=== PATIENT | male | born 1950 | race Caucasian/White ===

== ENCOUNTER 2018-11-07 17:30 | Inpatient (IN) ==
[2018-11-07 19:02] LABS: BASO# 0.03 X1000 (0.0-0.2); BASO% 0.2 % (0.0-0.8); EOS# 0.33 X1000 (0.0-0.7); EOS% 2.7 % (0.0-10.0); HEMATOCRIT 21.5 % (42.0-52.0); HEMOGLOBIN 7.2 g/dL (14.0-18.0); IMM GRAN# 0.04 X1000 (0.0-0.04); IMM GRAN% 0.3 % (0.0-0.5); LYMPH# 0.61 X1000 (1.2-3.4); MCH 28.1 PG (27-31); MCHC 33.5 g/dL (33-37); MONO# 1.31 X1000 (0.11-0.59); MONO% 10.8 % (1.7-9.3); MPV 9.3 FL (7.4-10.4); NEUT# 9.81 X1000 (1.4-6.5); RBC 2.56 XMIL (4.7-6.1); RDW 16.3 % (11.5-14.5); WBC 12.13 X1000 (4.8-10.8)
[2018-11-07 19:08] LABS: PLT 1013 X1000 (130-400)
[2018-11-07 19:20] LABS: ALB/GLOB RATIO 0.8; ALBUMIN 3.3 g/dL (3.5-5.0); CALCIUM 8.7 mg/dL (8.8-10.2); POTASSIUM 5.5 mmol/L (3.5-5.1); TOTAL BILIRUBIN 0.31 mg/dL (0.20-1.00); TOTAL PROTEIN 7.2 g/dL (6.3-8.3)
[2018-11-07 19:24] LABS: EOS 3 % (1-10); LYMPHS 11 % (21-51); MONO 1 % (1-9); SEGS 84 % (42-75)
--- NOTE | 2018-11-07 19:25 | Diag Imaging Result Doc PS360 ---
CHEST-2 VIEWS - 11/07/2018 INDICATION: weakness COMPARISON: None FINDINGS: There are sternotomy wires. There is mild cardiomegaly. Pulmonary vascularity is top normal. No infiltrates or edema. No pneumothorax or pleural effusion. IMPRESSION: Mild cardiomegaly. Electronically signed by Nacho Calvin 11/07/2018 7:23 PM
[2018-11-07 19:26] LABS: ANISOCYTOSIS 2+
[2018-11-07] MEDS ORDERED: KAYEXALATE PO ONE (20:46)
[2018-11-07] MEDS ORDERED: NS 1,000 ML IV ONE (20:47)
[2018-11-07 21:25] LABS: MPV 9.5 FL (7.4-10.4)
--- NOTE | 2018-11-07 22:11 | Diag Imaging Result Doc PS360 ---
KNEE 3 VIEWS RIGHT - 11/07/2018 INDICATION: right knee pain TECHNIQUE: Three views COMPARISON: 10/23/2018 FINDINGS: There is soft tissue swelling in the region of the quadriceps tendon. Stable total knee replacement. No hardware fracture or loosening. IMPRESSION: Indeterminate area of soft tissue swelling in the region of the quadriceps tendon. Electronically signed by Nacho Calvin 11/07/2018 10:09 PM
--- NOTE | 2018-11-07 22:20 | PROVIDER DOCUMENTATION ---
This chart was entered by Edmund Corral Scribe, acting as scribe for Pancho Pierre MD. HPI-Musculoskeletal Pain/Inj - GENERAL Chief Complaint: Abnormal Lab[s] Stated Complaint: ANEMIA Time Seen by Provider: 11/07/18 20:33 Source: patient - HX OF PRESENT ILLNESS-MUSKULOSKELTAL Nature of Presenting Problem: Pt is a 68 y/o M presents to the ED with right knee pain after a complete knee replacement 2 weeks ago. Pt says he was seen yesterday by his surgeon and began antibiotics for a possible post op infection. Pt reports he got a call today at 4 pm from his labs that were abnormal and told to come to the ED. Quality of Pain: reports: aching Severity in ED: moderate, severe Onset/Duration: gradual, 2 days ago Timing: still present Modifying Factors: improves with: nothing Any recent injury?: Yes (Knee replacement) Similar Symptoms Previously?: No Recently seen or treated by another doctor?: No Review of Systems - Adult - REVIEW OF SYSTEMS - ADULT Constitutional: denies: chills, fever Eyes: reports: no symptoms reported Ears, Nose, Mouth & Throat: reports: no symptoms reported Cardiovascular: reports: no symptoms reported Respiratory: denies: cough, shortness of breath, wheezing Gastrointestinal: denies: nausea, vomiting Genitourinary: reports: no symptoms reported Musculoskeletal: reports: joint pain. denies: back pain, neck pain Integumentary: reports: no symptoms reported Neurological: denies: dizziness/vertigo, headache/migraines Psychiatric: reports: no symptoms reported Endocrine: reports: no symptoms reported Hematologic/Lymphatic: reports: no symptoms reported Allergic/Immunologic: reports: no symptoms reported All Other Systems: Reviewed and Negative Past History - Adult - PAST MEDICAL HISTORY-ADULT Review of Records: reports: Old Records Reviewed, Nursing Assessment Review, Medications Reviewed - SOCIAL HISTORY Smoking: cigarettes, less than 1 pack/day Living Situation: family Physical Exam-Injury Related - Physical Exam-Injury Related Initial Vital Signs Reviewed: Yes General Appearance: appears well, alert, no apparent distress Eyes: PERRL/EOMI, pink conjunctivae Head, Ears, Nose, Mouth & Throat: normal ENT inspection, pharynx normal. negative: moist mucous membranes (dry) Neck: non-tender, full range of motion, supple, normal inspection Respiratory: lungs clear, normal breath sounds, no pleuratic chest pain, no respiratory distress, no accessory muscle use Cardiovascular: normal peripheral pulses, regular rate, rhythm Abdominal Exam: normal bowel sounds, non tender, soft Back Exam: normal inspection, no CVA tenderness Extremity: erythema (mild erythema over right knee inscision with some discharge. ROM is pain and pt c/o of increased pain and stiffnes), swelling, tenderness. negative: normal range of motion (right knee) Integumentary: normal color, warm/dry Neurologic: grossly normal, no motor/sensory deficits Psych/Mental Status: normal mood/affect, normal thought content, normal thought process, oriented x 3 Progress - PLAN OF CARE/RESULTS Progress/Plan/Lab Results: Vital Signs - 8 hr 11/07/18 18:10 Temperature 98.5 F Pulse Rate 70 Respiratory Rate 24 Blood Pressure 105/35 O2 Sat by Pulse Oximetry 100 Laboratory Results - last 24 hr 11/07/18 11/07/18 11/07/18 18:25 18:25 18:25 WBC 12.13 H RBC 2.56 L Hgb 7.2 L Hct 21.5 L MCV 84.0 MCH 28.1 MCHC 33.5 RDW Std Deviation 16.3 H Plt Count 1013 H* MPV 9.3 Immature Gran % (Auto) 0.3 Neut % (Auto) 81.0 H Lymph % (Auto) 5.0 L Becker % (Auto) 10.8 H Eos % (Auto) 2.7 Baso % (Auto) 0.2 Immature Gran # (Auto) 0.04 Neut # (Auto) 9.81 H Lymph # (Auto) 0.61 L Becker # (Auto) 1.31 H Eos # (Auto) 0.33 Baso # (Auto) 0.03 Segmented Neutrophils 84 H Lymphocytes 11 L Monocytes 1 Eosinophils 3 Pathologist Review Cancelled Atypical Lymphocytes 1.0 Anisocytosis 2+ Sodium 132 L Potassium 5.5 H Chloride 97 L Carbon Dioxide 20 L Anion Gap 15 BUN 59 H Creatinine 2.0 H Estimated GFR/1.73 m2 33 BUN/Creatinine Ratio 30 Glucose 118 H Calculated Osmolality 282 Calcium 8.7 L Total Bilirubin 0.31 AST 40 H ALT 37 Alkaline Phosphatase 161 H Total Protein 7.2 Albumin 3.3 L Globulin 3.9 Albumin/Globulin Ratio 0.8 Blood Type A POSITIVE Antibody Screen NEGATIVE 11/07/18 20:34 WBC RBC Hgb Hct MCV MCH MCHC RDW Std Deviation Plt Count 1058 H* MPV 9.5 Immature Gran % (Auto) Neut % (Auto) Lymph % (Auto) Becker % (Auto) Eos % (Auto) Baso % (Auto) Immature Gran # (Auto) Neut # (Auto) Lymph # (Auto) Becker # (Auto) Eos # (Auto) Baso # (Auto) Segmented Neutrophils Lymphocytes Monocytes Eosinophils Pathologist Review Atypical Lymphocytes Anisocytosis Sodium Potassium Chloride Carbon Dioxide Anion Gap BUN Creatinine Estimated GFR/1.73 m2 BUN/Creatinine Ratio Glucose Calculated Osmolality Calcium Total Bilirubin AST ALT Alkaline Phosphatase Total Protein Albumin Globulin Albumin/Globulin Ratio Blood Type Antibody Screen Orders Category Date Time Status CHEST-2 VIEWS [RAD] Stat Exams 11/07/18 18:23 Completed KNEE 3 VIEWS RIGHT [RAD] Stat Exams 11/07/18 21:18 Completed CBC WITH ELECTRONIC DIFF [HEME] Stat Lab 11/07/18 18:25 Completed COMPREHENSIVE METABOLIC PANEL [CHEM] Stat Lab 11/07/18 18:25 Completed PLATELET COUNT [HEME] Stat Lab 11/07/18 20:34 Completed TYPE & SCREEN [BBK] Stat Lab 11/07/18 18:25 Results WOUND CULTURE INC GRAM STAIN [RM] Stat Lab 11/07/18 20:48 Uncollected 0.9% Sodium Chloride Inj [Ns] 1,000 ml Med 11/07/18 20:47 Discontinued IV 999 mls/hr Sodium Polystyrene [Kayexalate] Med 11/07/18 20:46 Discontinued 15 gm PO NOW ONE EKG [EKG] Stat Ther 11/07/18 22:17 Ordered Result Diagrams: 11/07/18 20:34 11/07/18 18:25 - XRAY 1 XRAY Study: Chest Impression: Abnormal (INDICATION: weakness COMPARISON: None FINDINGS: There are sternotomy wires. There is mild cardiomegaly. Pulmonary vascularity is top normal. No infiltrates or edema. No pneumothorax or pleural effusion. IMPRESSION: Mild cardiomegaly. Electronically signed by Nacho Calvin 2018 7:23 PM), See EMR Report 2 XRAY: Right XRAY Study: Knee Impression: Abnormal (INDICATION: right knee pain TECHNIQUE: Three views COMPARISON: 10/23/2018 FINDINGS: There is soft tissue swelling in the region of the quadriceps tendon. Stable total knee replacement. No hardware fracture or loosening. IMPRESSION: Indeterminate area of soft tissue swelling in the region of the quadriceps tendon. Electronically signed by Nacho Calvin 10:09 PM), See EMR Report - CONSULTS/PCP/HOSPITALIST Notification #1 *Consult/PCP/Hospitalist*: Ortho- Dr Hernandez Time Discussed: 22:12 Reason/Comments: Review HPI and plan of care Consult Disposition: Admit (to hospitalist and NPO after midnight for possible clean out of knee) #2 Consult: Hospitalist- Dr Bowman Time Discussed: 22:16 Reason/Comments: Admission Consult Disposition: Will see in ED, Admit Departure - Departure Date of Disposition Decision: 11/07/18 Time of Disposition Decision: 22:14 DIAGNOSIS: Anemia, Hyperkalemia, Thrombocytosis, Infection of knee Disposition: ADMITTED INPATIENT 09 Certified Medical Emergency: Emergent Condition: Stable Referrals and Follow-Ups: Eloina Cortez MD [Primary Care Provider] - - Critical Care Note This patient required my direct & personal management of CC.: No Attestation - Physician/ BLAYNE Attestation Patient care was provided by Advanced Practice Provider:: No The physician spent face to face time with patient:: Yes Advanced Practice Provider documentation review:: Supervising physician onsite and consulted in the evaluation and care of this patient. The physician did have a face to face encounter with the patient. This chart was documented by the indicated scribe, (Edmund Corral Scribe) and accurately reflects the services I performed and decisions made by me, Pancho Pierre MD, as attested by the provider's signature.
[2018-11-07] MEDS ORDERED: ZOFRAN IV ONE (22:24)
[2018-11-07] MEDS ORDERED: DILAUDID IV ONE (22:24)
[2018-11-07] MEDS ORDERED: CUBICIN 500 MG in NS 100 ML IV ONE (23:00)
[2018-11-07] MEDS ORDERED: ZOFRAN IV PRN (23:20)
[2018-11-07] MEDS ORDERED: TYLENOL PO PRN (23:20)
[2018-11-07] MEDS: NS 1,000 ML IV SCH (23:30)
[2018-11-07] MEDS ORDERED: ROCEPHIN 1 GM in NS 50 ML IV SCH (23:30)
[2018-11-07 23:50] LABS: CHOLESTEROL 139 mg/dL (0-200); HDL 25 mg/dL (35-55); IRON SATURATION 6 %; LDL 92 mg/dL; TIBC 222 ug/dL; TOTAL IRON 14 ug/dL (53-167); TRIGLYCERIDES 110 mg/dL (39-160); UNBOUND IRON 208 ug/dL (112-346); VLDL 22 mg/dL
[2018-11-08 00:20] LABS: FERRITIN 289 ng/mL (30-400)
[2018-11-08] MEDS: NORCO-7.5 PO PRN ×3 (00:20→16:55)
[2018-11-08] MEDS ORDERED: BENADRYL IV ONE (00:23)
[2018-11-08] MEDS: FOLIC ACID 1 MG in NS 50 ML IV SCH (00:45)
[2018-11-08] MEDS ORDERED: BENADRYL IV PRN (01:10)
--- NOTE | 2018-11-08 02:19 | HISTORY AND PHYSICAL ---
CHIEF COMPLAINT: Abnormal labs, sent by surgeon. HISTORY OF PRESENT ILLNESS: This is a 68-year-old male who had right knee pain after having a complete right knee replacement around 2 weeks ago. He reportedly saw the surgeon yesterday and was started on antibiotics for possible postoperative infection. I am unsure what antibiotic that he was started on. The patient and his were unable to tell me. He reports that he got a call today around 4 p.m. related to his labs being abnormal and was told to come to the emergency room. He did state that he has had gradually increasing knee pain with a drainage over the last week, worse the last 2 days. Nothing makes it better and movement makes it worse. He rated it around 7/10. It is causing him difficulty ambulating. He states that he has been working with Home Health with range of motion. There was some soft tissue swelling noted on the x-ray. Patient has a past medical history of coronary artery disease, hypertension, hyperlipidemia. However, he is allergic to statins. They caused him to have hepatitis so he is unable to treat that at this time. Also has GERD and coronary artery disease status post CABG. The patient was noted to be anemic with elevated platelets and mildly elevated WBC. Was also noted to be in acute renal failure with elevated potassium. He will be admitted to the medical floor for further evaluation and treatment. PAST MEDICAL HISTORY: See HPI. 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 He did receive chemotherapy and radiation treatment for the cancer. PREVIOUS SURGICAL HISTORY: 1. Right knee done by Dr. Cortez 2 weeks ago. 2. CABG. 3. Removal of squamous cell carcinoma. SOCIAL HISTORY: Lives with his . Works in the [employer] department at a vehicle [employer]. Smokes less than a pack a day. Smoking cessation was gone over with the patient. He denies wanting to quit at this time. Denies alcohol or illicit drug use or abuse. FAMILY HISTORY: The patient is adopted but states that his maternal history included coronary artery disease. ALLERGIES: Statin causing hepatitis. HOME MEDICATIONS: A list of home medications was not reconciled. The patient and his were unable to tell me what home medications he took. An order has been placed for Nursing to reconcile home medications. These will be restarted when appropriate. REVIEW OF SYSTEMS: Fourteen point review of systems conducted with the patient. Pertinent positives listed above in the HPI. He also complained of general fatigue and a warmth to his right knee as well as stiffness. All other systems were reviewed and negative. PHYSICAL EXAMINATION: VITAL SIGNS: Temperature 98.5, pulse 70, respirations 24, blood pressure 105/35, oxygen saturation 100% on room air. GENERAL: Pleasant 68-year-old male sitting on the side of the ER stretcher, answers all questions appropriately. He is alert and oriented times 3. is at the bedside very attentive. He is in no acute distress. HEENT: Head is atraumatic, normocephalic. Pupils equal, round, reactive to light. Extraocular eye movement is intact. Sclerae are anicteric. Conjunctiva is pale. Oral mucosa is mildly dry and tacky. NECK: Supple. No JVD. No thyromegaly. Trachea is midline. No cervical lymphadenopathy. CARDIAC: S1, S2 appreciated. No murmurs, gallops, rubs. LUNGS: Mild expiratory wheeze noted throughout the lung reddy. No rhonchi. No rales. Symmetric rise and fall with respirations. ABDOMEN: Soft, nondistended, nontender. Bowel sounds present all 4 quadrants, normoactive. No pulsatile mass. No organomegaly. EXTREMITIES: No clubbing, cyanosis, or edema. Right knee has noted edema, erythema and is oozing, also warm to touch and tender to palpation. GENITOURINARY: No bladder distention. Patient voids. Otherwise deferred. NEUROLOGICAL: No focal or motor deficits. Otherwise was a nonfocal examination. DIAGNOSTIC DATA: Chest x-ray: Mild cardiomegaly. Right knee x-ray shows soft tissue swelling around the quadriceps tendon. LABORATORY DATA: WBC 12.13. Hemoglobin 7.2. Hematocrit 21.5. Platelet count 1058. Sodium 132. Potassium 5.5. Chloride 97. Carbon dioxide 20. BUN 59. Creatinine 2. Glucose 118. ASSESSMENT AND PLAN: 1. Probable right knee infection. We will consult Orthopedics. We will start on Cubicin and Rocephin. Patient will be given Bunkie 7.5 one to two as needed for pain. Wound culture has been sent as well as blood cultures. We will hold the patient NPO after midnight for possible clean out of knee. 2. Anemia. It has been steadily dropping over the last couple of times it was checked. We will transfuse 1 unit of packed red blood cells. We will order iron studies. It is likely iron deficient. 3. Hyperkalemia. We will give Kayexalate 15 g, recheck potassium. 4. Acute kidney injury. Patient was fluid bolused in the emergency room. Continue normal saline. Recheck laboratory data in a.m. 5. Hypertension. We will continue home medications when appropriate. Patient is borderline hypotensive at this time. We will continue to monitor patient's blood pressure. Further recommendations per patient clinical course. Dictated by PETRA Daly for El Bowman MD cc: PETRA Daly MD Dr. Mann John R. Riehl, MD
--- NOTE | 2018-11-08 03:25 | HISTORY AND PHYSICAL ---
ADDENDUM: This is a tbes-ho-sceb encounter note with PETRA Marcum. The patient came in with worsening pain and swelling in his right knee. He had these issues previously. He had a total knee replacement about 2 weeks ago. He has noted just more pain and tightness. There is some purulent drainage from the incision site. He has been placed on antibiotics as an outpatient, which I think was Bactrim, but has not improved. His physical exam reveals an edematous, swollen knee. He does have a small, kind of pinpoint area with purulence draining. His hemoglobin and hematocrit are also fairly low. He apparently is iron deficient and folate deficient. He has had kind of a failure to thrive type syndrome for the last several days so he is going to be put in for IV antibiotics. I put him on daptomycin and Rocephin until orthopedic can evaluate him. Now, if he has infected hardware, we may need to consider ID consult but we will see how he does postoperatively and based on the cultures. We did obtain a wound culture. Also transfused him 1 unit. Supplement his folate. He has got some acute on chronic renal failure so we will give him some gentle hydration. Check renal electrolytes and follow. cc: El Bowman MD
[2018-11-08] MEDS: MORPHINE IV PRN ×3 (04:16→15:04)
[2018-11-08 05:45] LABS: INR 1.12; PROTIME 15.3 Seconds (11.0-16.0)
[2018-11-08 05:46] LABS: BASO# 0.03 X1000 (0.0-0.2); BASO% 0.3 % (0.0-0.8); EOS% 4.6 % (0.0-10.0); HEMATOCRIT 23.9 % (42.0-52.0); HEMOGLOBIN 7.8 g/dL (14.0-18.0); IMM GRAN# 0.04 X1000 (0.0-0.04); IMM GRAN% 0.4 % (0.0-0.5); LYMPH# 0.71 X1000 (1.2-3.4); LYMPH% 6.6 % (20.5-51.1); MCH 27.7 PG (27-31); MCHC 32.6 g/dL (33-37); MCV 84.8 FL (81-99); MONO# 1.42 X1000 (0.11-0.59); MONO% 13.1 % (1.7-9.3); MPV 9.5 FL (7.4-10.4); NEUT# 8.13 X1000 (1.4-6.5); PLT 917 X1000 (130-400); RBC 2.82 XMIL (4.7-6.1); RDW 16.1 % (11.5-14.5); WBC 10.83 X1000 (4.8-10.8)
[2018-11-08 06:06] LABS: CALCIUM 8.8 mg/dL (8.8-10.2); CREATININE 1.8 mg/dL (0.7-1.2); POTASSIUM 5.7 mmol/L (3.5-5.1)
--- NOTE | 2018-11-08 07:46 | Diag Imaging Result Doc PS360 ---
EXAM: US RENAL 2 (RETROPER) COMPLETE 11/08/2018 HISTORY: cristobal/arf TECHNIQUE: Renal ultrasound COMMENT: There is no evidence of hydronephrosis. The prostate is somewhat prominent but the urinary bladder is not particularly distended. The right kidney is 10 x 4.9 x 5 cm the left is 11.3 x 4.9 x 5.2 cm. There is no evidence of stones. IMPRESSION: No evidence of obstructive uropathy. Electronically signed by Dioni Haji 11/08/2018 7:43 AM
--- NOTE | 2018-11-08 07:55 | EKG Report ---
Test Performed on : 11/08/2018 07:51:42 AM Test Reason : abnormal labs Blood Pressure : / mmHG Vent. Rate : 072 BPM Atrial Rate : 072 BPM P-R Int : 128 ms QRS Dur : 144 ms QT Int : 416 ms P-R-T Axes : 011 264 085 degrees QTc Int : 455 ms Normal sinus rhythm. Right bundle branch block Abnormal ECG When compared with ECG of 18-OCT-2018 08:47, QRS axis shifted left Nonspecific T wave abnormality no longer evident in Inferior leads Nonspecific T wave abnormality now evident in Lateral leads (inverted T wave in aVL is new) Inverted T wave in V2 may be lead placement variability Confirmed by Joselyn COOPER, Zohaib Dalal ([id number]) on 11/08/2018 8:22:02 AM
[2018-11-08] MEDS ORDERED: D50W SYRINGE IV ONE (10:10)
[2018-11-08] MEDS ORDERED: HUMULIN R SUBQ ONE (10:10)
[2018-11-08] MEDS ORDERED: CALCIUM GLUCONATE 1 GM in NS 50 ML IV ONE (10:11)
[2018-11-08] MEDS ORDERED: VELTASSA PO ONE (10:11)
[2018-11-08] MEDS ORDERED: ZOFRAN ONE (10:16)
[2018-11-08] MEDS ORDERED: DIPRIVAN 1% ONE (10:16)
[2018-11-08] MEDS ORDERED: FENTANYL ONE (10:16)
[2018-11-08] MEDS ORDERED: XYLOCAINE-MPF 2% ONE ×2 (10:16→11:44)
[2018-11-08] MEDS ORDERED: ROBINUL ONE (10:40)
[2018-11-08] MEDS ORDERED: NEOSPORIN G.U. IRRIGANT ONE (10:54)
[2018-11-08] MEDS ORDERED: VANCOMYCIN ONE (10:54)
--- NOTE | 2018-11-08 10:58 | PROGRESS NOTE ---
DATE: 11/08/2018 SUBJECTIVE: This morning Mr. Valle refers to be doing fairly okay. Of note, Mr. Valle got a right knee total replacement done about 2 weeks ago. Subsequently he was sent home and has been doing fairly okay. According to the , he has just been getting remarkably weaker and weaker and for the past couple of days the right knee surgery incision site has been draining some purulent material. So, they went to see Dr. Cortez yesterday and he was directed to come to the emergency room because of abnormal labs. He has also been having some chills at home. OBJECTIVE: Vital signs: Blood pressure is 122/62, pulse is 80, respiration is 18, temperature is 97.6 degrees. General: Mr. Valle is a 68-year-old gentleman. He is in bed. He was not in any cardiopulmonary distress. HEENT: Mucosa is slightly dry but pink. Anicteric. Acyanotic. Neck: Supple. Chest: Good air entry bilaterally. There were no crepitations. No rhonchi. Cardiovascular: Regular rate and rhythm. There were no murmurs, no rubs, and no gallops. There is an old sternotomy scar on the anterior chest wall. Abdomen: Soft, nontender. Bowel sounds present. Extremities: There is mild edema on the right lower ankle. The right knee does have the recent surgery. It is remarkably erythematous, warm to touch, and is draining some purulent material. MEDICAL EQUIPMENT REPAIR TECHNICIAN: Patient is awake, alert, and oriented. There is no focal neurological deficit. LABORATORY DATA: WBC is down to 10.83, hemoglobin is 7.8, platelet count is 918 ,000. Sodium is 138, potassium is 5.7, bicarb is 19, BUN is 55, creatinine is 1.8. The patient' s folate is 5.7. Percent saturation is 6, which is indicative of underlying iron deficiency. A renal ultrasound was done which shows no evidence of obstructive uropathy. A knee x-ray did show intermediate area of soft tissue swelling in the area of the quadriceps. Chest x-ray showed mild cardiomegaly. The patient's EKG shows left axis deviation, right bundle branch block, some mildly peaked T- waves. ASSESSMENT: 1. Sepsis secondary to knee infection. Blood cultures and cultures from the wound have been done. The patient has been started on broad-spectrum antibiotics. 2. Right knee septic arthritis with hardware. Orthopedics has been consulted. I think there is a plan for revision of the hardware and washout. Cultures will also be taken from surgery. We have consulted ID. 3. Thrombocytosis. I think this is twofold. One, I think it is reactive to the current infection since platelet is an acute phase reactant, but I think the patient also has a genuine underlying iron deficiency which could cause thrombocytosis. For now , we are going to continue the antibiotic coverage. We are going to address the infection and at a later date look about the iron. I think we will have to hold off on any iron infusion for now in the face of active infection. 4. Hyperkalemia with mild peaked T-waves on the EKG. We are going to start the patient on calcium gluconate and also treat the potassium. He was given Kayexalate overnight. However, the potassium has actually gone up a little bit. We will treated it with insulin, dextrose, and albuterol nebulization and a repeat this later on this afternoon. This could be as a result of medication. It appears the patient was on Bactrim for the knee infection and I presume this is probably the cause of that. We will avoid any medication with that possible side effect. 5. Iron deficiency, noted. This will be addressed at a later date. 6. Folate deficiency. We will start the patient on folate replacement. 7. Acute kidney injury. I think this is multifactorial including some evidence of dehydration, but I think most of it could be drug induced (Celebrex and Bactrim). We will avoid any nephrotoxic drugs for now. We will hydrate the patient and repeat the labs for later today. I have explained the plan to the patient and also to the , who was at the bedside at the time of the encounter. cc: Ap Lorenzo MD MTDD
--- NOTE | 2018-11-08 11:10 | CONSULTATION ---
DATE OF CONSULTATION: 11/08/2018 CHIEF COMPLAINT: Abnormal labs. HISTORY OF PRESENT ILLNESS: This is a 68-year-old male who has been having right knee pain after having a right total knee replacement about 2 weeks ago. He called our office yesterday and we reviewed the labs with the patient. It was shown that he had a low hemoglobin and hematocrit. It was also shown that he had possible signs of infection with an elevated white count. He presented to the emergency department and has had increased drainage in that knee over the past couple of days. He reports his pain is a 7/10. He also reports difficulty ambulating and placing weight on that leg. He has been working with home health in his home. His labs also indicated that he had decreased renal function and elevated potassium. He was admitted to the medical floor for evaluation and treatment. We plan on taking him to surgery and performing an incision and drainage. PAST MEDICAL HISTORY: Includes GERD, squamous cell carcinoma, high blood pressure, coronary artery disease, hyperlipidemia, and degenerative joint disease. PAST SURGICAL HISTORY: 1. Right total knee arthroplasty with Dr. Cortez 2 weeks ago. 2. CABG. 3. Removal of squamous cell carcinoma on his tongue. SOCIAL HISTORY: The patient reports that he smokes from time to time, but he does not drink or partake in any drugs. FAMILY HISTORY: Noncontributory. ALLERGIES: He reports he is allergic to statin drugs that have caused hepatitis. HOME MEDICATIONS: List of home medications has not been reconciled at this time. REVIEW OF SYSTEMS: A 14 point review of systems was done and was in the HPI. VITAL SIGNS: Temperature 97.6 degrees, pulse rate 72, respiratory rate 24, blood pressure 124/58, oxygen saturation 95% on room air. LABS: White blood cells 10.83, hemoglobin 7.8, hematocrit 23.9. INR 1.12. Sodium 136, potassium 5.7, chloride 103, BUN 55, creatinine 1.8. AST slightly elevated at 40. His urine random creatinine is 120.3. PHYSICAL EXAMINATION: General: The patient is alert and oriented, sitting on the ER stretcher. He shows no signs of acute distress. HEENT: Head is atraumatic, normocephalic. Pupils equal, round, reactive. Oral mucosa is moist. Neck: Supple. Cardiac: S1, S2. Regular rate and rhythm. Lungs: There is equal chest expansion. Abdomen: Soft, nontender. Extremities: Right lower extremity, there is mild to moderate swelling to the right knee. There is decreased range of motion due to pain and swelling. There is a negative Homans sign. There is serosanguineous fluid leaking from the knee. The knee is warm. There is no red streaking present. There is good capillary refill in the toes. There is [id number] medial and lateral joint line tenderness. There is also mild tenderness to the anterior portion of the knee. Neurological : There are no focal motor deficits. DIAGNOSTICS: Right knee x-ray shows soft tissue swelling. ASSESSMENT AND PLAN: Infected right knee with total knee arthroplasty. We will take him up to the operating room shortly and do an incision and drainage with a poly exchange. We will plan on placing antibiotic beads inside the knee as well. Thank you again for this consult. Dictated by PETRA Boudreaux for Sravan Cortez MD cc: PETRA Boudreaux MD [facility]
[2018-11-08] MEDS ORDERED: TOBRAMYCIN IV ONE (11:15)
[2018-11-08] MEDS ORDERED: SODIUM CHLORIDE 0.9% 20 ML ONE (11:27)
[2018-11-08] MEDS ORDERED: NEO-SYNEPHRINE ONE (11:27)
[2018-11-08] MEDS: MORPHINE ONE ×3 (12:41→13:30)
[2018-11-08] MEDS: PHENERGAN ONE ×2 (12:49→12:53)
--- NOTE | 2018-11-08 12:51 | OPERATIVE NOTE ---
PROCEDURE DATE: 11/08/2018 PREOPERATIVE DIAGNOSIS: Infected right total knee - acute. POSTOPERATIVE DIAGNOSIS: Infected right total knee - acute. PROCEDURE: Irrigation, debridement, polyethylene exchange and antibiotic beads , right total knee. SURGEON: Luzamria Cortez MD. MANAGER STATISTICAL PROGRAMMING: PETRA Boudreaux. Mr. Casiano was necessary for proper retraction and manipulation of the knee during the case. ANESTHESIA: General. COMPLICATION: None. PROCEDURE IN DETAIL: This 68-year-old male, 2 weeks status post total knee replacement, presents with possible septic total knee. Risks, benefits, and no guarantees were discussed with the washout, and he is willing to proceed. He was taken to the operating room and satisfactory anesthesia obtained. The right knee was prepped and draped in the usual sterile fashion. A time- out was taken to confirm operative site, procedure, and patient. The leg was elevated for 5 minutes and then tourniquet inflated to 350 mmHg. The previous incision over the front of the knee was opened and purulent material encountered. This was cultured for aerobic and anaerobic cultures. The arthrotomy was opened and purulent-type material found throughout the joint. There was no loosening of the components. irrigant was then used to irrigate the joint and debulk any purulent material. The knee was then irrigated with 1 L liter of Bactisure through the joint after curetting all the joint surfaces and removing any loose tissue. After the Bactisure wash, another liter and a half of irrigant was irrigated through the joint. The poly was removed to facilitate irrigation of all surfaces. Then, the joint was soaked in 3 minutes for dilute Betadine solution and this evacuated from the joint. The new polyethylene bearing was placed. The knee reduced with good stability and patellofemoral tracking. Antibiotic beads with both vanc and Tobra were placed in the joint, and the joint capsule closed with #1 Vicryl. More antibiotic beads were placed in the subcutaneous space and this was closed with 0 Vicryl followed by skin karen. Sterile dressings completed the closure and the patient was recovered from anesthesia. A drain was placed prior to complete closure. The patient is recovering from anesthesia as noted and transferred to recovery room in stable condition. No intraoperative complications were noted. Instrument count sponge count was correct at the time of closure. cc: Sravan Cortez MD [facility]
[2018-11-08] MEDS: NS 1,000 ML ONE (13:45)
[2018-11-08] MEDS: ICAR-C PO SCH (15:01)
[2018-11-08] MEDS: MAXIPIME 1 GM in NS 50 ML IV SCH ×2 (15:06→21:02)
[2018-11-08] MEDS ORDERED: ZOFRAN ODT PO PRN (15:15)
[2018-11-08] MEDS ORDERED: ZOFRAN IV PRN (15:15)
[2018-11-08] MEDS ORDERED: OXY IR PO PRN (15:15)
[2018-11-08] MEDS ORDERED: MORPHINE IV PRN ×2 (15:15)
[2018-11-08] MEDS: TYLENOL PO SCH ×2 (16:11→21:04)
[2018-11-08] MEDS: ULTRAM PO SCH ×2 (16:12→21:03)
[2018-11-08] MEDS: NS 1,000 ML IV SCH (16:14)
[2018-11-08 16:17] LABS: CALCIUM 8.9 mg/dL (8.8-10.2); CREATININE 1.6 mg/dL (0.7-1.2); POTASSIUM 5.1 mmol/L (3.5-5.1)
--- NOTE | 2018-11-08 18:34 | INFECTIOUS DISEASE CONSULT REP ---
DATE: 11/08/2018 CONCLUSION: Patient has an infected total knee arthroplasty. RECOMMENDATIONS: I agree with starting the patient on daptomycin and cefepime pending culture results. DISCUSSION: The patient developed swelling of the right knee associated with drainage. He had been put on antibiotics, the last one being Septra, and it did not decrease the swelling or drainage. He was admitted to the hospital and today he had irrigation, debridement, polyethylene exchange, and insertion of antibiotic beads in his right knee. Cultures of the knee have been taken and also blood cultures, the results of which are pending. The patient's CBC shows a white count of 10,830, hemoglobin 7.8, and platelet count 917,000. Creatinine is 1.8. GFR is 38. The patient started itching today and I think this is secondary to an allergic reaction to Septra. PAST MEDICAL HISTORY/REVIEW OF SYSTEMS: Eyes and Ears: He does not have any problem hearing or seeing. Neck: No stiffness. Respiratory: No cough or shortness of breath. Cardiac: No chest pain or palpitations. Gastrointestinal: The patient has to take daily stool softeners to have regular bowel movements. Genitourinary: No dysuria or flank pain. Bones, Joints, Muscles: See Present Illness. Neurologic: The patient does not have seizures. He has not recently lost any motor or sensory function. Integument: No rash noted. PREVIOUS HOSPITALIZATIONS AND OPERATIONS: Patient recently had a right total knee arthroplasty. Prior to that, he had surgery for an ACL tear of the right knee. The patient has had coronary artery bypass grafting. He has had cancer of the throat. He was treated with chemotherapy and radiation therapy. He. As mentioned above, he has previously had surgery on his right knee for an ACL tear. MEDICAL DISEASES: Positive for throat cancer, hypertension, coronary artery disease, gastroesophageal reflux disease. INFECTIOUS DISEASE HISTORY: Negative for pneumonia and UTI. FAMILY HISTORY: Positive for coronary artery disease and stroke. The patient was adopted. SOCIAL HISTORY: The patient is . He has dogs for pets. [place] He smokes cigarettes. He does not drink alcoholic beverages or abuse drugs. ALLERGIES: His only drug allergy is the most recent one which was pruritus from taking Septra. HOME MEDICATIONS: Include the following: Norvasc, aspirin, celecoxib, hydrocodone, irbesartan, methocarbamol, Prilosec and most recently Septra. PHYSICAL EXAMINATION: Vital Signs: Temperature is 97.8, pulse 90, respirations 16, blood pressure 120/60. Patient weighs 160 pounds. General: This is a somewhat ill-appearing elderly male. He is continually itching. Head, Eyes, Ears, Nose and Throat: He can hear my spoken words and see near objects. He does not have any white patches on his tongue. Neck: No meningismus. Lungs: Clear to auscultation. Cardiovascular: Heart rate is regular. Abdomen: Soft and nontender. Extremities: The patient has a large dressing around his left knee. The dressing is intact. Neurologic: The patient is slightly lethargic. He has just come from the recovery room. He can move his extremities. There is no tremor. I did not question him. Most of the questions were answered by his . Integument: No rash noted. Thank you for the consult. cc: Pepe Daniels MD
[2018-11-08] MEDS ORDERED: CELEBREX PO SCH (21:00)
[2018-11-08] MEDS: OXY IR PO PRN (21:02)
[2018-11-08] MEDS: COLACE PO SCH (21:05)
[2018-11-08] MEDS: PERIDEX MT SCH (21:05)
[2018-11-09] MEDS: FOLIC ACID 1 MG in NS 50 ML IV SCH (00:17)
[2018-11-09] MEDS: CUBICIN 500 MG in NS 100 ML IV SCH ×2 (00:17→21:45)
[2018-11-09] MEDS: ULTRAM PO SCH ×4 (02:55→21:43)
[2018-11-09] MEDS: TYLENOL PO SCH ×4 (02:55→21:42)
[2018-11-09] MEDS: NS 1,000 ML IV SCH (02:56)
[2018-11-09 07:32] LABS: BASO# 0.06 X1000 (0.0-0.2); BASO% 0.4 % (0.0-0.8); EOS# 0.25 X1000 (0.0-0.7); EOS% 1.9 % (0.0-10.0); HEMATOCRIT 23.2 % (42.0-52.0); HEMOGLOBIN 7.5 g/dL (14.0-18.0); IMM GRAN# 0.05 X1000 (0.0-0.04); IMM GRAN% 0.4 % (0.0-0.5); LYMPH% 9.7 % (20.5-51.1); MCH 27.9 PG (27-31); MCHC 32.3 g/dL (33-37); MCV 86.2 FL (81-99); MONO% 10.4 % (1.7-9.3); MPV 9.6 FL (7.4-10.4); NEUT# 10.36 X1000 (1.4-6.5); NEUT% 77.2 % (42.2-75.2); PLT 963 X1000 (130-400); RBC 2.69 XMIL (4.7-6.1); RDW 16.4 % (11.5-14.5); WBC 13.42 X1000 (4.8-10.8)
[2018-11-09 08:19] LABS: CALCIUM 9.1 mg/dL (8.8-10.2); CREATININE 1.8 mg/dL (0.7-1.2); POTASSIUM 5.7 mmol/L (3.5-5.1)
[2018-11-09] MEDS ORDERED: SODIUM BICARBONATE 8.4% 150 MEQ in D5W 1,000 ML IV SCH (08:45)
[2018-11-09] MEDS: PEPCID PO SCH (10:24)
[2018-11-09] MEDS: COLACE PO SCH ×2 (10:26→21:43)
[2018-11-09] MEDS: PERIDEX MT SCH ×2 (10:26→21:42)
[2018-11-09] MEDS: ICAR-C PO SCH (10:26)
[2018-11-09] MEDS: ASPIRIN PO SCH (10:29)
--- NOTE | 2018-11-09 10:54 | INFECTIOUS DISEASE PROGRESS NO ---
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 Undoubtedly the bone that the osteoplasty is in is involved in the infection as well. The patient also has a positive blood culture for methicillin-resistant Staphylococcus aureus. MEDICATIONS: The patient currently is on daptomycin and cefepime. OBJECTIVE: Vital signs: Temperature is 97.7, pulse 72, respirations 20, blood pressure 107/55. General: This is an ill-appearing elderly male. He is in no acute distress. He has been scratching himself, and my feeling is this may have been brought on by the fact that the patient was taking Septra before he came into the hospital. HEENT: He can hear my spoken words and see near objects. Neck: No stiffness. Lungs: Clear to auscultation. Cardiovascular: Regular heart rate. Abdomen: Soft and nontender. Extremities: There is a large dressing around the patient's right knee. The dressing is intact. Neurologic: The patient is alert. He can move his extremities. There is no tremor. DIAGNOSTIC DATA: Both the culture from the patient's knee and from his blood is growing methicillin-resistant Staphylococcus aureus. The patient's creatinine is 1.8. The GFR is 38. CBC shows a white count of 13,420, hemoglobin 7.5, and platelet count 963,000. There is no new radiographic study today. ASSESSMENT AND PLAN: The plan is to repeat the patient's blood cultures tomorrow, and if they are sterile, then I can go ahead and have a PICC placed in the patient, and he can be discharged to continue his antibiotics at home. With infections involving a foreign body such as a total knee arthroplasty, many times rifampin is added to the main antibiotic, which in this case is daptomycin. The patient's tells me the patient was given a statin drug for cholesterol, and he had a bad case of hepatitis. Because of this, I do not think I am going to risk another hepatitis case by giving the patient rifampin, and I will use just daptomycin as a single agent. COMORBIDITIES: The patient previously had surgery on his knee. The patient had arthritis which required the surgery. The patient also is elderly. The patient also in the past has had throat cancer. cc: Pepe Daniels MD
--- NOTE | 2018-11-09 12:54 | PROGRESS NOTE ---
DATE: 11/09/2018 SUBJECTIVE DATA: Mr. Valle is seen on postop day one of I and D of the right knee with poly- bearing exchange. He reports his knee feels a lot better than yesterday. He reports his pain is still a 5 to 6/10 at this time. He reports knee is slightly bent, and it is hard to straighten the knee out. OBJECTIVE DATA: There is a slight flexion contracture of the right knee. There is decreased range of motion to the knee. There is about 75 mL of bloody discharge in the drain. The bandages are clean and dry. There is good sensation to the right lower extremity. There are good pedal pulses. There is a negative Homans sign. There is good capillary refill in the toes. ASSESSMENT: 1. Right knee pain with recent right total knee arthroplasty and poly-bearing exchange. 2. Anemia. PLAN: We plan on monitoring Mr. Valle in the hospital. We continued with IV antibiotics at this time and recommendations from Infectious Disease. We will check on the patient later to see how he is doing. His blood counts were slightly low, so we will give him 1 unit of packed red blood cells at this time. Dictated by PETRA Boudreaux for Sravan Cortez MD cc: PETRA Boudreaux MD
[2018-11-09] MEDS: MORPHINE IV PRN (14:48)
--- NOTE | 2018-11-09 16:29 | PROGRESS NOTE ---
DATE: 11/09/2018 SUBJECTIVE: This morning, Mr. Valle refers to be doing fairly okay. Still has some pain in the right knee. He is day 1 post orthopedic intervention where irrigation and debridement, polyethylene exchange and antibiotic beads in the right total knee was done by Dr. Cortez. OBJECTIVE: Vital signs: Blood pressure is 128/76, pulse is 80, respirations 18 , temperature 97.3. The patient was saturating 97% on 3 L of nasal cannula. General: Mr. Valle is a 68- year-old gentleman. He was in bed, no distress. Mucosa is pink and moist. Anicteric and acyanotic. Neck is supple. Chest: Good air entry bilaterally. There were no crepitations, no rhonchi. Cardiovascular: Regular rate and rhythm. No murmurs, no rubs, no gallops. Abdomen was soft, nontender. Bowel sounds were present. Extremities: There is some mild edema on the right lower ankle. The knee is currently wrapped up in sterile dressing. There is a MUKESH drain in place. The left is unremarkable. BUTTON TACKER: The patient is awake, alert, and oriented. There is no focal neurological deficit. Musculoskeletal: There is an old sternotomy scar on the anterior chest wall. DIAGNOSTIC DATA: WBC is 12.42, hemoglobin is 7.5, platelet count of 963. Chemistries also reviewed. Potassium is 5.4, bicarb is 16, creatinine is 1.8. CURRENT MEDICATIONS: 1. [place] 7.5 q.6. 2. Aspirin 325 daily. 3. Daptomycin 500 daily. 4. Colace 100 mg b.i.d. 5. Folic acid. 6. Morphine p.r.n. 7. Cefepime has been discontinued. ASSESSMENT: 1. Sepsis on presentation secondary to knee infection. The patient is status post orthopedic intervention, today is day 1. I and D was done. So far the cultures are gram-positive cocci in both the blood and the knee with pending ID and sensitivity. The patient is on daptomycin. 2. Right septic knee with hardware, status post surgery. 3. Gram-positive cocci bacteremia. Source is from the knee. 4. Reactive Thrombocytosis. 5. Hyperkalemia. We will continue to address this. 6. Acute kidney injury. We will continue with adequate hydration and avoid any nephrotoxic drugs. 7. Iron deficiency. Being replaced. 8. Folate deficiency. The patient is on treatment. PLAN: In general, I think Mr. Valle is doing fairly okay. He has been seen by both Orthopedics and ID. Both the blood culture and the wound culture are showing gram-positive cocci, presumably MRSA. The patient is currently on daptomycin with pending final ID and sensitivity. The patient also still has potassium elevation. We will give him Veltassa and will switch his current fluids to D5 with bicarb because of non gap metabolic acidosis which I think is related to the renal failure. cc: Ap Lorenzo MD MTDD
[2018-11-09] MEDS: NS 1,000 ML ONE (16:35)
[2018-11-09] MEDS: MORPHINE ONE ×3 (16:35→16:36)
[2018-11-09] MEDS: PHENERGAN ONE (16:35)
[2018-11-09] MEDS: OXY IR PO PRN (21:42)
[2018-11-10] MEDS: FOLIC ACID 1 MG in NS 50 ML IV SCH (01:35)
[2018-11-10] MEDS: ULTRAM PO SCH ×5 (01:36→21:17)
[2018-11-10] MEDS: NORCO-7.5 PO PRN (01:36)
[2018-11-10] MEDS: TYLENOL PO SCH ×3 (01:36→21:12)
[2018-11-10] MEDS: CUBICIN 500 MG in NS 100 ML IV SCH ×3 (01:56→22:12)
[2018-11-10 06:51] LABS: BASO# 0.04 X1000 (0.0-0.2); BASO% 0.3 % (0.0-0.8); EOS# 0.23 X1000 (0.0-0.7); EOS% 1.9 % (0.0-10.0); HEMATOCRIT 26.5 % (42.0-52.0); HEMOGLOBIN 8.6 g/dL (14.0-18.0); IMM GRAN# 0.05 X1000 (0.0-0.04); IMM GRAN% 0.4 % (0.0-0.5); LYMPH# 1.29 X1000 (1.2-3.4); LYMPH% 10.5 % (20.5-51.1); MCH 27.7 PG (27-31); MCHC 32.5 g/dL (33-37); MCV 85.5 FL (81-99); MONO# 1.26 X1000 (0.11-0.59); MONO% 10.2 % (1.7-9.3); MPV 9.4 FL (7.4-10.4); NEUT# 9.47 X1000 (1.4-6.5); NEUT% 76.7 % (42.2-75.2); PLT 866 X1000 (130-400); RDW 16.1 % (11.5-14.5); WBC 12.34 X1000 (4.8-10.8)
[2018-11-10 07:19] LABS: ALB/GLOB RATIO 0.7; CALCIUM 9.5 mg/dL (8.8-10.2); CREATININE 1.5 mg/dL (0.7-1.2); POTASSIUM 5.1 mmol/L (3.5-5.1); TOTAL BILIRUBIN 0.85 mg/dL (0.20-1.00); TOTAL PROTEIN 7.1 g/dL (6.3-8.3)
[2018-11-10] MEDS: PERIDEX MT SCH ×2 (08:34→21:18)
[2018-11-10] MEDS: PEPCID PO SCH (08:35)
[2018-11-10] MEDS: COLACE PO SCH ×2 (08:35→21:17)
[2018-11-10] MEDS: ASPIRIN PO SCH (08:36)
[2018-11-10] MEDS: ICAR-C PO SCH (08:36)
[2018-11-10] MEDS: OXY IR PO PRN ×3 (08:37→18:49)
--- NOTE | 2018-11-10 09:25 | PROGRESS NOTE ---
DATE: 11/10/2018 SUBJECTIVE: This morning, Mr. Valle referred to be doing a lot better. He was in bed. The was at the bedside at the time of the encounter. He denies any complaints. Mr. Valle also got 2 PRBC transfusion yesterday, no reactions. OBJECTIVE: Vital signs: Blood pressure is 110/57, pulse is 72, respirations 20 , temperature 98.4. The patient is saturating 95%. General: Mr. Valle is a 68-year- old, gentleman. He was in bed. No distress. Mucosa is pink and moist. Anicteric. Acyanotic. Neck: Supple. Chest: Good air entry bilaterally. No crepitations. No rhonchi. Cardiovascular: Regular rate and rhythm. There were no murmurs, no rubs, no gallops. Abdomen: Soft, nontender. Bowel sounds present. Extremities: No pedal edema. The right knee is still wrapped up in sterile dressing. There is a MUKESH drain in place. Left is unremarkable. CHIROPRACTOR SOLE PRACTITIONER: Patient is awake, alert, and oriented. There is no focal neurological deficit. LABORATORY DATA: WBC is down to 12.34, hemoglobin is 8.6, platelet count is also coming down 866. Chemistry is reviewed. Sodium is 134, potassium is 5.1, chloride 99, bicarb is up to 20. BUN is down to 43 and creatinine is also down to 1.5. CURRENT MEDICATIONS: Have also been reviewed. MICROBIOLOGY DATA: Blood cultures positive for Staph, for MRSA and the knee is also growing gram- positive cocci, which I think is going to be the same. A repeat blood culture is still pending. ASSESSMENT: 1. Sepsis on presentation, secondary to right knee infection. Patient is status post incision and drainage with hardware revision. Cultures also growing gram-positive cocci. 2. Right septic total knee arthroplasty. Patient is status post incision and drainage. 3. MRSA bacteremia. We think the source is from the knee. The patient is on daptomycin. 4. Hyperkalemia, improved. 5. Reactive thrombocytosis, improving. 6. Acute kidney injury. The patient's creatinine is on downward trend with fluids. 7. Non-gap metabolic acidosis, improving with bicarb infusion. 8. Folate deficiency. We will continue supplement. 9. Iron deficiency. Patient is getting p.o. supplementation. So, in general, Mr. Valle continues to be doing a lot better. He is status post 2 PRBC transfusion, hemoglobin and hematocrit is much better. His blood culture showing MRSA and the wound culture showing gram-positive cocci which I think is also MRSA. There is a repeat blood culture for today. We will follow up on that. If that becomes negative, then will be able to get Mr. Valle a PICC line for IV antibiotics and discharged. cc: Ap Lorenzo MD MTDD
--- NOTE | 2018-11-10 13:34 | PROGRESS NOTE ---
DATE: 11/10/2018 SUBJECTIVE: Jimmie Valle is a 68-year-old male who has an infected right total knee arthroplasty. He had irrigation and debridement of the wound 2 days ago. He still has his drain and the original surgical dressing. He states he has made no significant improvement over the last 24 hours. OBJECTIVE: He is a well-developed, well-nourished male. He is cooperative with the exam. He does seem to be somewhat lethargic. His white count is still 12,000. His hematocrit is 26.5 today from 23 yesterday. His cultures were positive for MRSA. He has had minimal output from his drain. ASSESSMENT: Stable right knee irrigation debridement. PLAN: We will remove his drain, change his dressing, place ice on his wound to try to help with the swelling and pain. We will monitor him closely. Hopefully, we will not have to repeat his irrigation and debridement. cc: Darek Yadav MD
[2018-11-10] MEDS: NS 1,000 ML IV SCH (21:11)
[2018-11-10] MEDS: MORPHINE IV PRN (21:17)
[2018-11-11] MEDS: FOLIC ACID 1 MG in NS 50 ML IV SCH ×2 (01:45→23:51)
[2018-11-11] MEDS: ULTRAM PO SCH ×5 (03:02→23:26)
[2018-11-11] MEDS: TYLENOL PO SCH ×3 (04:30→23:47)
[2018-11-11 06:58] LABS: BASO# 0.03 X1000 (0.0-0.2); BASO% 0.3 % (0.0-0.8); EOS# 0.12 X1000 (0.0-0.7); EOS% 1.2 % (0.0-10.0); HEMATOCRIT 24.4 % (42.0-52.0); HEMOGLOBIN 7.9 g/dL (14.0-18.0); IMM GRAN# 0.02 X1000 (0.0-0.04); IMM GRAN% 0.2 % (0.0-0.5); LYMPH# 0.68 X1000 (1.2-3.4); MCH 27.7 PG (27-31); MCHC 32.4 g/dL (33-37); MCV 85.6 FL (81-99); MONO# 1.16 X1000 (0.11-0.59); MONO% 11.9 % (1.7-9.3); MPV 9.3 FL (7.4-10.4); NEUT# 7.76 X1000 (1.4-6.5); NEUT% 79.4 % (42.2-75.2); PLT 766 X1000 (130-400); RBC 2.85 XMIL (4.7-6.1); RDW 16.2 % (11.5-14.5); WBC 9.77 X1000 (4.8-10.8)
[2018-11-11 07:31] LABS: ALBUMIN 2.7 g/dL (3.5-5.0); CALCIUM 8.6 mg/dL (8.8-10.2); CREATININE 1.3 mg/dL (0.7-1.2); PHOSPHORUS 3.6 mg/dL (2.7-4.5); POTASSIUM 4.7 mmol/L (3.5-5.1)
[2018-11-11] MEDS ORDERED: MILK OF MAGNESIA PO PRN (09:55)
[2018-11-11] MEDS: ICAR-C PO SCH (10:35)
[2018-11-11] MEDS: PEPCID PO SCH (10:35)
[2018-11-11] MEDS: COLACE PO SCH ×2 (10:35→20:00)
[2018-11-11] MEDS: MORPHINE IV PRN ×2 (10:36→18:11)
--- NOTE | 2018-11-11 11:01 | PROGRESS NOTE ---
DATE: 11/11/2018 SUBJECTIVE: Jimmie Valle is a 68-year-old male with a right total knee infection treated by Dr. Cortez. He has no new complaints. He states he has improved since yesterday. There has been some swelling about his knee, according to his , and much less pain. OBJECTIVE: He is a well-developed, well-nourished male. He is alert, oriented, and cooperative with the exam. His dressing is clean with minimal drainage. He does keep his knee in about a 45 degree angle. PLAN: I have encouraged him to work on the flexion and extension. We will get physical therapy to work with him as well. He is likely going to get a PICC line tomorrow and probably be discharged to home at that time. We will have physical therapy work with him at home. cc: Darek Yadav MD
--- NOTE | 2018-11-11 11:26 | PROGRESS NOTE ---
DATE: 11/11/2018 SUBJECTIVE: This morning Mr. Valle refers to be doing fairly okay. He was sitting up having his breakfast. was at the bedside at the time of the encounter. OBJECTIVELY: Vitals: Blood pressure 131/62, pulse is 90, respirations 16, temperature 98.4 degrees. General: Mr. Valle is a 68-year-old gentleman. He was in bed, sitting up at the edge of the bed, he was not in any cardiopulmonary distress. HEENT: Mucosa was pink and moist. Anicteric. Acyanotic. Neck: Supple. Respiratory System: There was good air entry bilaterally. No crepitations. No rhonchi. Cardiovascular: Regular rate and rhythm. No murmurs, no rubs, no gallops. GI: Abdomen, soft, nontender. Bowel sounds were present. Extremities: No pedal edema. Distal pulses were present. The right knee still has some sterile dressing over the knee itself. When I looked at it, the redness is significantly improved. There are still karen in place, but the drain has been removed. Left knee is unremarkable. COTTRELL OPERATOR: Patient is awake, alert, oriented. There is no focal neurological deficit. LABORATORY DATA: WBC is down to 9.77, hemoglobin is 7.9, platelet count of 766,000. Chemistry is also reviewed. Creatinine is down to 1.3. BUN is down to 33. So far, blood culture and the culture from the knee showed MRSA. ASSESSMENT: 1. Sepsis on presentation secondary to right knee infection. 2. MRSA bacteremia with MRSA infected right arthroplasty. The patient is status post incision and drainage with washout. The knee looks a lot better and there have been repeat blood cultures, which we are pending the result. Patient is currently on daptomycin. 3. Hyperkalemia, improved. 4. Reactive thrombocytosis, improving. 5. Acute kidney injury, resolved. The creatinine is still on a downward trend. The patient is on baseline IV fluids. 6. Folate deficiency. We will continue to supplement. 7. Iron deficiency. The patient is on oral iron supplements. PLAN: In general, I think Mr. Valle is doing a lot better. There has been a repeat blood culture from yesterday. We are pending on that. Once that is negative, then will put in a PICC line and hopefully get him home tomorrow. cc: Ap Lorenzo MD
[2018-11-11] MEDS: NS 1,000 ML IV SCH (18:11)
[2018-11-11] MEDS: NORCO-7.5 PO PRN (19:59)
[2018-11-11] MEDS: PERIDEX MT SCH (20:00)
[2018-11-11] MEDS: CUBICIN 500 MG in NS 100 ML IV SCH (22:00)
[2018-11-12] MEDS: NS 1,000 ML IV SCH (02:52)
[2018-11-12] MEDS: ULTRAM PO SCH ×2 (02:52→09:45)
[2018-11-12] MEDS: OXY IR PO PRN ×2 (02:54→10:49)
[2018-11-12] MEDS: TYLENOL PO SCH ×2 (04:18→09:45)
[2018-11-12 07:09] LABS: BASO# 0.03 X1000 (0.0-0.2); BASO% 0.3 % (0.0-0.8); EOS# 0.14 X1000 (0.0-0.7); EOS% 1.3 % (0.0-10.0); HEMATOCRIT 25.1 % (42.0-52.0); IMM GRAN# 0.03 X1000 (0.0-0.04); IMM GRAN% 0.3 % (0.0-0.5); LYMPH# 0.89 X1000 (1.2-3.4); LYMPH% 8.3 % (20.5-51.1); MCH 27.9 PG (27-31); MCHC 31.9 g/dL (33-37); MCV 87.5 FL (81-99); MONO% 13.1 % (1.7-9.3); MPV 9.4 FL (7.4-10.4); NEUT# 8.17 X1000 (1.4-6.5); NEUT% 76.7 % (42.2-75.2); PLT 775 X1000 (130-400); RBC 2.87 XMIL (4.7-6.1); RDW 16.6 % (11.5-14.5); WBC 10.66 X1000 (4.8-10.8)
[2018-11-12 07:32] VITALS: BP 127/62
[2018-11-12 07:39] LABS: ALBUMIN 2.7 g/dL (3.5-5.0); CALCIUM 9.7 mg/dL (8.8-10.2); CREATININE 1.3 mg/dL (0.7-1.2); PHOSPHORUS 4.2 mg/dL (2.7-4.5)
[2018-11-12] MEDS: ASPIRIN PO SCH (09:44)
[2018-11-12] MEDS: ICAR-C PO SCH (09:44)
[2018-11-12] MEDS: PEPCID PO SCH (09:44)
[2018-11-12] MEDS: PERIDEX MT SCH (09:44)
[2018-11-12] MEDS: COLACE PO SCH (09:45)
[2018-11-12 11:36] LABS: INR 1.1; PROTIME 15.1 Seconds (11.0-16.0)
--- NOTE | 2018-11-12 12:22 | INFECTIOUS DISEASE PROGRESS NO ---
DATE: 11/12/2018 PRESENT ILLNESS: The patient has a methicillin-resistant Staph aureus infected right total knee arthroplasty. MEDICATIONS: The patient is on daptomycin. PHYSICAL EXAMINATION: Vital Signs: Temperature is 98.7 degrees, pulse 76, respirations 18, blood pressure 124/62. General: This is an ill-appearing elderly male. He is in no acute distress and he actually looks a lot better than he did a few days ago. He is alert and ambulating. Head/eyes/ears/nose/throat: He can hear my spoken words and see near objects. Neck: No meningismus. Lungs: Clear to auscultation. Cardiovascular: Heart rate is regular. Abdomen: Soft and nontender. Integument: The patient has multiple areas where he has scratched himself. Extremities: The patient's right knee has an incision closed with clips. The incision is intact. There is a minimal amount of erythema and there is no drainage coming out from the incision at this time. Neurologic: The patient is alert. He can ambulate with a walker. There is no tremor. LABORATORY AND RADIOLOGY STUDIES: CBC shows a white count of 10,660, hemoglobin 8 and platelet count 775,000. Creatinine is 1.3, GFR is 55. Repeat blood cultures are sterile. There is no radiographic study for today. ASSESSMENT AND PLAN: 1. The patient has MRSA infected total knee arthroplasty. My plan is to treat the patient for a total of 8 weeks with daptomycin and then put the patient on a low dose of an antibiotic on a chronic basis. The patient's organism is susceptible to doxycycline and Septra. Most likely I will be using doxycycline because the patient is allergic to sulfa. I have ordered a CK for today just to make sure that the patient has not had any muscle problem on the daptomycin so far. The patient is going today. I plan to see him in my office in 4 weeks and then again at 8 weeks, at which time I will stop the IV antibiotic and put him on low-dose doxycycline on a chronic basis. I will also remove his PICC. 2. Comorbidities: He had surgery on his knee and he also has arthritis which surgery was done for. The patient is elderly and he has had in the past throat cancer. cc: Pepe Daniels MD
[2018-11-12] MEDS ORDERED: NS 250 ML ONE (13:06)
--- NOTE | 2018-11-12 15:13 | Diag Imaging Result Doc PS360 ---
EXAM: CHEST-PORTABLE 11/12/2018 HISTORY: S/P PICC LINE PLACEMENT TECHNIQUE: AP portable at 1444 COMMENT: There is a left-sided PICC line with its tip in the superior vena cava. There is diffuse interstitial and alveolar opacity bilaterally which has worsened considerably since 11/07/2018. IMPRESSION: Pulmonary edema plus minus pneumonia. Electronically signed by Dioni Haji 11/12/2018 3:10 PM
--- NOTE | 2018-11-12 15:20 | PROGRESS NOTE ---
DATE: 11/12/2018 SUBJECTIVE DATA: Mr. Valle states that he is doing well at this time. He has been sitting up in his bed and eating some dinner. He reports he has decreased pain in the knee. OBJECTIVE DATA: There is still some mild swelling to the right lower extremity. There is decreased range of motion to the right knee. There is some mild serosanguineous drainage coming from the knee. There is a negative Homans sign. There is good capillary refill in the toes. The patient is awake, alert, and sitting on the side of the bed. There are no focal neurologic deficits. LABORATORY DATA: White blood cell 10.66, hemoglobin 8.0, hematocrit 25.1. PT 15.1. Sodium 136, potassium 5.0, chloride 100, BUN 27, creatinine 1.3, glucose 118. VITAL SIGNS: Temperature 98.7, pulse rate 76, blood pressure 127/62, oxygen saturation 97% on 2 L. ASSESSMENT: 1. Methicillin-resistant Staphylococcus aureus infected right total knee arthroplasty. 2. Anemia. PLAN: We plan on sending Mr. Valle home now with consideration of Infectious Disease and the hospitalist. We agree that he can continue to take doxycycline and daptomycin. The patient has received his PICC line today and may take these IV antibiotics at home. We will continue home therapy at home. He is to follow up in Dr. Cortez's office in 2 weeks for a recheck. He will be placed on aspirin 325 twice daily. He can continue his Percocet pain prescription at home. As far as the anemia, we will monitor this on an outpatient basis at this time. The patient is cleared to be discharged by Orthopedics. Dictated by PETRA Boudreaux for Sravan Cortez MD cc: PETRA Boudreaux MD
--- NOTE | 2018-11-13 05:01 | DISCHARGE SUMMARY ---
ADMISSION DATE: 11/07/2018 DISCHARGE DATE: 11/12/2018 DISPOSITION: Home. FOLLOWUP: 1. Dr. Cortez. 2. Dr. Daniels. CONSULTATIONS DURING THIS ADMISSION: 1. Orthopedics was consulted. Patient was seen by Dr. Cortez. 2. ID was consulted. Patient was seen by Dr. Daniels. INVASIVE PROCEDURES DONE DURING THIS ADMISSION: Irrigation, debridement, polyethylene exchange and antibiotic beads of the right total knee was done by Dr. Cortez on 11/08/2018. ADMISSION DIAGNOSES: 1. Probable right knee infection. 2. Anemia. 3. Hyperkalemia. 4. Hypertension. DIAGNOSES AT THE TIME OF DISCHARGE: 1. Sepsis on presentation secondary to right knee infection. 2. Methicillin-resistant Staphylococcus aureus bacteremia secondary to methicillin-resistant Staphylococcus aureus infected right total knee arthroplasty. 3. Hyperkalemia, improved. 4. Reactive thrombocytosis, improved. 5. Acute kidney injury, improving. 6. Folate deficiency. 7. Iron deficiency. DISCHARGE MEDICATIONS: 1. Amlodipine 5 mg at bedtime. 2. Omeprazole 20 mg daily. 3. Atka. 4. Erbesartan 300 daily. 5. Iron tablet. 6. Aspirin 325 p.o. daily. 7. IV daptomycin. Dose and length of therapy to be determined by Dr. Daniels. PRESENTING COMPLAINT: Abnormal labs by surgery. HISTORY OF PRESENTING COMPLAINT: Mr. Valle is a 68-year-old male, who had a total right knee arthroplasty 2 weeks ago. Went to follow up with his surgeon. He was started on some oral antibiotics (Bactrim), went home, and he went back 2 days later because of worsening redness and exudation from the knee. Lab work was done. Patient was called to go to the emergency department because of abnormal labs. The patient was evaluated. Initially was found to have a hemoglobin of 7.2. Discharge hemoglobin was about 8.5 the last time he was here. Platelet count was also elevated. His potassium was also 5.7 on the Bactrim. This was all thought to be secondary to medication side-effects, so Bactrim and other nephrotoxic drugs were all discontinued. The patient was admitted, was thought to be septic, was started on broad-spectrum IV antibiotics. Cultures were done and was admitted. HOSPITAL COURSE: The patient did pretty well during the hospital course. He was taken to OR by Dr. Cortez and ID and polyethylene antibiotic beads exchange was done. He did tolerate procedure very well. Subsequently, his culture came back positive for MRSA both in the wound and from the blood. About 48 to 72 hours later, blood cultures were repeated, and the blood was clean. The patient was also seen by ID, who made some changes to the antibiotic. The patient is currently on IV daptomycin, and he is going to continue that for about 6 to 8 weeks to be determined by ID. He is, today, fairly stable. He has been evaluated by Orthopedics and ID. Both of them are okay for patient to be discharged. The patient is clinically stable for discharge. VITALS: Blood pressure 127/62, pulse is 76, respirations is 18, temperature 98.7 degrees. The patient is being discharged in stable conditions. All the discharge instructions have been discussed with him and the , who was at the bedside at the time of the encounter. They both expressed understanding. TIME SPENT FOR DISCHARGE: 35 minutes. cc: MD Pepe Sow MD John R. Riehl, MD Primary Care Physician
== END 2018-11-12 16:39 | disposition home or self-care (01) | DRG 485 ==
LOC: SUPCPDRO → ED 17:30 → EDIPHOLD 11-08 00:25 → SUATTDRO 11-08 00:25 → 4N 11-08 10:06
PROVIDERS: ATTEND Internal Medicine
CPT/HCPCS: 36430; 36569; 71010; 71020; 71045; 71046; 73562; 76770; 80048; 80053; 80061; 80069; 82550; 82570; 82607; 82728; 82746; 83540; 83550; 84300; 84443; 85025; 85049; 85610; 86850; 86900; 86901; 86920; 87040; 87070; 87077; 87186; 93005; 96361; 96365; 96368; 96375; 97116; 97162; 97530; 99285; A9270; J0610; J0692; J0696; J0878; J1170; J1200; J2270; J2370; J2405; J2550; J3010; J3260; J3370; J7030; J7050; J7070; P9016

== ENCOUNTER 2018-12-05 13:38 | Inpatient (IN) ==
[2018-12-05] MEDS ORDERED: DUONEB (A & A) INH ONE (14:20)
--- NOTE | 2018-12-05 14:47 | Diag Imaging Result Doc PS360 ---
EXAM: CHEST-PORTABLE 12/05/2018 HISTORY: short of breath TECHNIQUE: AP portable upright at 1434 COMMENT: There is interstitial and alveolar opacity bilaterally particularly over the lateral left lower lobe. Compared to 11/12/2018, the left basilar opacities are worse but elsewhere there has been improvement. IMPRESSION: Improved pulmonary edema except in the left lower lobe. The possibility of superimposed pneumonia cannot be excluded. Electronically signed by Dioni Haji 12/05/2018 2:45 PM
[2018-12-05 15:47] LABS: INR 1.14; PROTIME 15.5 Seconds (11.0-16.0)
[2018-12-05 15:48] LABS: PTT 40.1 Seconds (22.3-41.8)
--- NOTE | 2018-12-05 15:51 | EKG Report ---
Test Performed on : 12/05/2018 1:52:50 PM Test Reason : SOB Blood Pressure : / mmHG Vent. Rate : 085 BPM Atrial Rate : 085 BPM P-R Int : 126 ms QRS Dur : 136 ms QT Int : 406 ms P-R-T Axes : 033 -76 075 degrees QTc Int : 483 ms Normal sinus rhythm. Possible Left atrial enlargement Right bundle branch block Left anterior fascicular block Bifascicular block Abnormal ECG When compared with ECG of 08-NOV-2018 07:51, No significant change was found Unconfirmed Result
[2018-12-05 15:52] LABS: BASO# 0.05 X1000 (0.0-0.2); BASO% 0.6 % (0.0-0.8); EOS# 0.42 X1000 (0.0-0.7); EOS% 4.9 % (0.0-10.0); HEMATOCRIT 22.1 % (42.0-52.0); IMM GRAN# 0.02 X1000 (0.0-0.04); IMM GRAN% 0.2 % (0.0-0.5); LYMPH# 0.55 X1000 (1.2-3.4); LYMPH% 6.4 % (20.5-51.1); MCH 26.2 PG (27-31); MCHC 31.7 g/dL (33-37); MCV 82.8 FL (81-99); MONO# 0.92 X1000 (0.11-0.59); MONO% 10.7 % (1.7-9.3); MPV 9.3 FL (7.4-10.4); NEUT# 6.66 X1000 (1.4-6.5); NEUT% 77.2 % (42.2-75.2); PLT 567 X1000 (130-400); RBC 2.67 XMIL (4.7-6.1); WBC 8.62 X1000 (4.8-10.8)
[2018-12-05 16:09] LABS: ALB/GLOB RATIO 0.9; ALBUMIN 3.2 g/dL (3.5-5.0); CALCIUM 8.5 mg/dL (8.8-10.2); CREATININE 1.2 mg/dL (0.7-1.2); POTASSIUM 4.9 mmol/L (3.5-5.1); TOTAL BILIRUBIN 0.55 mg/dL (0.20-1.00); TOTAL PROTEIN 6.7 g/dL (6.3-8.3)
--- NOTE | 2018-12-05 17:14 | Diag Imaging Result Doc PS360 ---
EXAM: CT ANGIOGRM PULMONARY ARTERIES - 12/05/2018 HISTORY: post-op sob TECHNIQUE: CT angiogram pulmonary arteries with intravenous contrast. Axial, coronal, and 3-D MIP images are obtained. COMPARISON: None. FINDINGS: There are no filling defects identified in the pulmonary arteries. There is no indication of aortic dissection. There are apparent COPD changes with interstitial fibrosis. There are possible superimposed infiltrates which are most prominent at the left lower lobe. There are medium right and small left pleural effusions. There is mediastinal and mild hilar adenopathy. IMPRESSION: No evidence of pulmonary embolism. Apparent COPD changes with interstitial fibrosis. Possible superimposed pulmonary edema and/or left lower lobe pneumonia. Medium right and small left pleural effusions. Mediastinal and mild hilar adenopathy. Electronically signed by Noel Robin 12/05/2018 5:12 PM
[2018-12-05] MEDS ORDERED: LASIX IV ONE (17:25)
[2018-12-05] MEDS ORDERED: TYLENOL PO ONE (17:28)
[2018-12-05] MEDS ORDERED: BENADRYL PO ONE (17:28)
[2018-12-05] MEDS ORDERED: LASIX IV SCH (17:30)
--- NOTE | 2018-12-05 17:39 | PROVIDER DOCUMENTATION ---
This chart was entered by Wendi Daniels Scribe, acting as scribe for Santos Langley MD. HPI-Respiratory General - General Chief Complaint: Shortness of Breath Stated Complaint: SOB Time Seen by Provider: 12/05/18 14:08 Source: patient Allergies/Adverse Reactions: Patient Allergies Allergy/AdvReac Type Severity Reaction Status Date / Time sulfamethoxazole Allergy Severe ITCHING Verified 11/08/18 15:01 [From ] trimethoprim [From ] Allergy Severe ITCHING Verified 11/08/18 15:01 Nmjxgcd-Cem-Leg Reductase AdvReac Severe Unknown Verified 11/09/18 17:03 Inhibitor Home Medications: Home Medication List Medication Instructions Recorded Confirmed Last Taken Type Amlodipine [Norvasc] 5 mg PO QHS 10/18/18 11/20/18 11/19/18 History Omeprazole [Prilosec] 20 mg PO DAILY@0700 10/18/18 11/20/18 11/20/18 History Hydrocodone/Acetaminophen [[place] 1 - 2 each PO Q4-6H PRN PRN #40 10/24/1811/20/18 Rx 10-325 Tablet] tablet Irbesartan 1 tab PO DAILY 11/08/18 11/20/18 11/20/18 History Methocarbamol 1 tab PO TID PRN 11/08/18 11/20/18 11/20/18 History Oxycodone HCl/Acetaminophen 1 tab PO Q6H PRN 11/08/18 11/20/18 11/20/18 History [Endocet 10-325 mg Tablet] Aspirin 325 mg PO DAILY #30 tab 11/12/18 11/20/18 11/20/18 Rx Docusate Sodium [Colace] 100 mg PO BID #60 cap 11/12/18 11/20/18 11/20/18 Rx Iron Carbonyl/Ascorbic Acid 1 ea PO DAILY #120 tab 11/12/18 11/20/18 11/20/18 Rx [Icar-C] - History of Present Illness-Resp Nature of Presenting Problem: 68 yom presents to the ed with c/o sob worsening and is post op with knee preplacement. pt saw dr esquivel today which is treating his infection in the knee.pt has picc line in left arm and is receiving abx daily Quality of Pain: reports: none Severity in ED: reports: moderate Onset/Duration: reports: 1 week ago Timing: reports: still present Context: reports: other (recent sx) Cough Quality/Degree: reports: moderate, dry cough Episode Frequency: occasional episodes Current Respiratory Medication Therapy: Initiated see nurses note Modifying Factors: improves with: nothing. worse with: exertion, deep breath, lying down Associated Symptoms: reports: cough, shortness of breath. denies: chest pain/ soreness, dizziness, headache, muscle/bodyaches, wheezing Similar Symptoms Previously?: No Recently seen or treated by another doctor?: Yes (saw dr esquivel today ) Review of Systems - Adult - REVIEW OF SYSTEMS - ADULT Constitutional: denies: chills, fever Eyes: reports: no symptoms reported Ears, Nose, Mouth & Throat: reports: no symptoms reported Cardiovascular: denies: chest pain, palpitations, syncope Respiratory: reports: see HPI, cough, dyspnea on exertion, shortness of breath. denies: wheezing Gastrointestinal: denies: abdominal pain, diarrhea, nausea, vomiting Genitourinary: reports: no symptoms reported Musculoskeletal: denies: back pain Integumentary: reports: no symptoms reported Neurological: denies: dizziness/vertigo, headache/migraines Psychiatric: reports: no symptoms reported Endocrine: reports: no symptoms reported Hematologic/Lymphatic: reports: no symptoms reported Allergic/Immunologic: reports: no symptoms reported All Other Systems: Reviewed and Negative Past History - Adult - PAST MEDICAL HISTORY-ADULT Review of Records: reports: Old Records Reviewed, Nursing Assessment Review, Medications Reviewed, Social history reviewed & non-contributory. Major Childhood Illnesses: reports: denies history Cardiovascular: reports: HTN Respiratory: reports: denies history Gastrointestinal: reports: denies history Genitourinary: reports: denies history Musculoskeletal: reports: denies history Neurological: reports: denies history Psychiatric: reports: denies history Endocrine/Immune: reports: denies history Other Conditions: reports: other cancer (tongue), MRSA (knee) - PRIOR SURGERIES/PROCEDURES Surgical/Procedure History: reports: recent surgery, joint replacement - IMMUNIZATION STATUS Childhood Immunizations: See Nurse Assessment Flu Vaccine: See Nurse Assessment - FAMILY HISTORY Family History: reviewed, not pertinent - SOCIAL HISTORY Smoking: cigarettes, greater than 1 pack/day Provider spent 3-5 mins advising pt. on dangers of tobacco.: Discussed manners to quit use, and f/u contacts for add'l counseling. Substance Use: denies Alcohol Use Frequency: never Living Situation: family Physical Exam-General - CONSTITUTIONAL General Appearance: appears well, alert, mild distress, obese - EYES Eyes: PERRL/EOMI, pink conjunctivae - HEAD, EARS, NOSE, MOUTH & THROAT HENMT: moist mucous membranes, normal ENT inspection - NECK Neck: non-tender, full range of motion, supple - RESPIRATORY Respiratory: chest non-tender, decreased breath sounds, rhonchi - CARDIOVASCULAR Cardiovascular: normal peripheral pulses, regular rate, rhythm, no gallop, no JVD, no murmur - GASTROINTESTINAL (ABDOMEN) Abdominal Exam: normal bowel sounds, non tender, soft - LYMPHATIC Lymphatic: no adenopathy - MUSCULOSKELETAL Back Exam: normal inspection, no CVA tenderness, no vertebral tenderness Extremity: normal capillary refill, pelvis stable, other (well healing scar from post knee replacement and pt is in knee brace) - SKIN Integumentary: normal color, normal turgor, warm/dry - NEUROLOGIC Neurologic: grossly normal, no motor/sensory deficits - PSYCHIATRIC Psych/Mental Status: normal mood/affect, normal thought content, normal thought process, oriented x 3 - HEART Score HEART Score: History: Slightly Suspicious HEART Score: ECG: Non-Specific Repolarization Disturbance/LBBB/PM HEART Score: Age: > or = 65 Years HEART Score: Risk Factors for Atherosclerotic Disease: 1 or 2 Risk Factors HEART Score: Troponin: < or = Normal Limit Total HEART Score:: 4 Progress - PLAN OF CARE/RESULTS Progress/Plan/Lab Results: Vital Signs - 8 hr 12/05/18 13:55 12/05/18 15:01 12/05/18 17:02 Temperature 97.8 F Pulse Rate 80 80 85 Respiratory Rate 16 16 30 H Blood Pressure 116/66 127/77 O2 Sat by Pulse Oximetry 100 100 Laboratory Results - last 24 hr 12/05/18 12/05/18 12/05/18 15:20 15:20 15:20 WBC 8.62 RBC 2.67 L Hgb 7.0 L Hct 22.1 L MCV 82.8 MCH 26.2 L MCHC 31.7 L RDW Std Deviation 17.0 H Plt Count 567 H MPV 9.3 Immature Gran % (Auto) 0.2 Neut % (Auto) 77.2 H Lymph % (Auto) 6.4 L Logan % (Auto) 10.7 H Eos % (Auto) 4.9 Baso % (Auto) 0.6 Immature Gran # (Auto) 0.02 Neut # (Auto) 6.66 H Lymph # (Auto) 0.55 L Logan # (Auto) 0.92 H Eos # (Auto) 0.42 Baso # (Auto) 0.05 PT INR PTT (Actin FS) Sodium 138 Potassium 4.9 Chloride 103 Carbon Dioxide 22 L Anion Gap 13 BUN 37 H Creatinine 1.2 Estimated GFR/1.73 m2 60 BUN/Creatinine Ratio 31 Glucose 133 H Calculated Osmolality 286 Calcium 8.5 L Total Bilirubin 0.55 AST 73 H ALT 58 H Alkaline Phosphatase 230 H Troponin T [place]x-[place]bsmytqlui Pept 60951 H Total Protein 6.7 Albumin 3.2 L Globulin 3.5 Albumin/Globulin Ratio 0.9 12/05/18 12/05/18 15:20 15:20 WBC RBC Hgb Hct MCV MCH MCHC RDW Std Deviation Plt Count MPV Immature Gran % (Auto) Neut % (Auto) Lymph % (Auto) Logan % (Auto) Eos % (Auto) Baso % (Auto) Immature Gran # (Auto) Neut # (Auto) Lymph # (Auto) Logan # (Auto) Eos # (Auto) Baso # (Auto) PT 15.5 INR 1.14 PTT (Actin FS) 40.1 Sodium Potassium Chloride Carbon Dioxide Anion Gap BUN Creatinine Estimated GFR/1.73 m2 BUN/Creatinine Ratio Glucose Calculated Osmolality Calcium Total Bilirubin AST ALT Alkaline Phosphatase Troponin T 0.072 Hbx-Q-Wejmrqwllcb Pept Total Protein Albumin Globulin Albumin/Globulin Ratio Orders Category Date Time Status Nursing- Obtain EKG once Care 12/05/18 14:20 Active OK to use PICC line ORDERED Care 12/05/18 14:19 Active Transfuse .Give-Transfuse Care 12/05/18 17:28 Active CHEST-PORTABLE [RAD] Stat Exams 12/05/18 14:19 Completed CTA [CT ANGIOGRM PULMONARY ARTERIES] [CT] Stat Exams 12/05/18 14:19 Completed CBC WITH ELECTRONIC DIFF [HEME] Stat Lab 12/05/18 15:20 Completed COMPREHENSIVE METABOLIC PANEL [CHEM] Stat Lab 12/05/18 15:20 Completed LRPC (RED CELLS) [BBK] Stat Lab 12/05/18 15:20 Received PRO B-NATRIURETIC PEPTIDE Stat Lab 12/05/18 15:20 Completed PROTIME WITH INR [COAG] Stat Lab 12/05/18 15:20 Completed PTT [COAG] Stat Lab 12/05/18 15:20 Completed TROPONIN T Stat Lab 12/05/18 15:20 Completed TYPE & SCREEN [BBK] Stat Lab 12/05/18 15:20 Received Acetaminophen [Tylenol] Med 12/05/18 17:28 Discontinued 650 mg PO PREMED ONE Albuterol 2.5MG/Ipratrop 0.5MG [Duoneb (A & A)] Med 12/05/18 14:20 Discontinued 3 ml INH NOW ONE Diphenhydramine [Benadryl] Med 12/05/18 17:28 Discontinued 50 mg PO PREMED ONE Furosemide [Lasix] Med 12/05/18 17:30 Active 80 mg IV AFTER TRANSFUSION Furosemide [Lasix] Med 12/05/18 17:25 Discontinued 80 mg IV NOW ONE Aerosol Treatments Routine Oth 12/05/18 14:20 Completed Aerosol Treatments Stat Oth 12/05/18 14:20 Completed EKG [EKG] Stat Ther 12/05/18 14:20 Draft Result Diagrams: 12/05/18 15:20 12/05/18 15:20 - REASSESSMENT Reassessment #1 Time Reassessed: 17:15 Status: improving - EKG 1 Time of EKG reading by physician:: 13:52 EKG Read and Signed by:: Santos Langley EKG Interpretation (*Must complete 3 of following elements*): Abnormal Rate: 85 Rhythm: nsr QRS: RBB, other (LAFB/Bifascicular block) AK Interval: normal ST Wave: normal Comments: possible left atrial enlargement - XRAY 1 XRAY: Bilateral XRAY Study: Chest Impression: See EMR Report (EXAM: CHEST-PORTABLE 12/05/2018 HISTORY: short of breath TECHNIQUE: AP portable upright at 1434 COMMENT: There is interstitial and alveolar opacity bilaterally particularly over the lateral left lower lobe. Compared to 11/12/2018, the left basilar opacities are worse but elsewhere there has been improvement. IMPRESSION: Improved pulmonary edema except in the left lower lobe. The possibility of superimposed pneumonia cannot be excluded. Electronically signed by Dioni Haji 12/05/2018 2:45 PM 12/05/18 1445 Interpreting Physician: Dioni Haji MD Dictated Date/Time: 12/05/18 1444 cc: Santos Langley MD; None,PCP) - CT/MRI 1 CT Study: Angiogram Impression: See EMR Report (EXAM: CT ANGIOGRM PULMONARY ARTERIES - 12/05/2018 HISTORY: post-op sob TECHNIQUE: CT angiogram pulmonary arteries with intravenous contrast. Axial, coronal, and 3-D MIP images are obtained. COMPARISON: None. FINDINGS: There are no filling defects identified in the pulmonary arteries. There is no indication of aortic dissection. There are apparent COPD changes with interstitial fibrosis. There are possible superimposed infiltrates which are most prominent at the left lower lobe. There are medium right and small left pleural effusions. There is mediastinal and mild hilar adenopathy. IMPRESSION: No evidence of pulmonary embolism. Apparent COPD changes with interstitial fibrosis. Possible superimposed pulmonary edema and/or left lower lobe pneumonia. Medium right and small left pleural effusions. Mediastinal and mild hilar adenopathy. Electronically signed by Noel Robin 12/05/2018 5:12 PM 12/05/18 1712 Interpreting Physician: Noel Robin MD Dictated Date/Time: 12/05/18 1705 cc : Santos Langley MD; None,PCP) - CONSULTS/PCP/HOSPITALIST Notification #1 *Consult/PCP/Hospitalist*: dr esquivel Time Discussed: 17:16 (dr esquivel would like pt to be admitted and transfused because he has sx planned with this pt next week) Reason/Comments: phone consult #2 Consult: PETRA Dooley Time Discussed: 17:39 (suarez) Consult Disposition: Admit Departure - Departure Date of Disposition Decision: 12/05/18 Time of Disposition Decision: 17:33 DIAGNOSIS: Dyspnea and respiratory abnormalities, New onset of congestive heart failure Anemia Qualifiers: Anemia type: iron deficiency Iron deficiency anemia type: chronic blood loss Qualified Code(s): D50.0 - Iron deficiency anemia secondary to blood loss ( chronic) Disposition: ADMITTED INPATIENT 09 Certified Medical Emergency: Emergent Condition: Fair Referrals and Follow-Ups: None,PCP [Primary Care Provider] - - Critical Care Note This patient required my direct & personal management of CC.: Yes Total Time (mins): 43 Critical Care Statement: This patient required my direct personal management to treat or rule out processes, the absence of which, could potentiallly result in sudden, clinically significant life or limb threatening deterioration. Attestation - Physician/ BLAYNE Attestation Patient care was provided by Advanced Practice Provider:: No The physician spent face to face time with patient:: Yes Advanced Practice Provider documentation review:: Supervising physician onsite and consulted in the evaluation and care of this patient. The physician did have a face to face encounter with the patient. This chart was documented by the indicated scribe, (Wendi Daniels Scribe) and accurately reflects the services I performed and decisions made by me, Santos Langley MD, as attested by the provider's signature.
--- NOTE | 2018-12-05 20:22 | HISTORY AND PHYSICAL ---
PRIMARY CARE PROVIDER: None. ORTHOPEDIST: Dr. Cortez. INFECTIOUS DISEASE: Dr. Pepe Daniels. VISITOR USE ASSISTANT: Dr. Mccartney. CHIEF COMPLAINT: Shortness of breath. HISTORY OF PRESENT ILLNESS: Mr. Valle is a 68-year-old male who carries a past medical history of a recent right knee replacement on 10/23 and then a re-op on the . The patient had a MRSA infected total knee arthroplasty. He has been on IV antibiotics with daptomycin daily at 500. Also, carries a past medical history of anemia, hypertension, coronary artery disease status post quadruple bypass 10 years ago, squamous cell carcinoma. The patient reports over the last week he has had an increase in his shortness of breath, which is what brought him to the ER today. Workup in the ED showed an elevated proBNP at 33, 724. Transaminitis and anemia with a hemoglobin and hematocrit of 7 and 22. Imaging showed pulmonary edema. He was given 80 of IV Lasix. He will be transfused with 2 units of blood and then given another dose of 80 of Lasix. His shortness of breath has improved with IV Lasix. We will put him on the surgical floor, check an echocardiogram and consult Cardiology. Start low-dose beta cindy and continue his irbesartan, and continue his IV antibiotics with his daptomycin as well as consult Dr. Pepe Daniels and Dr. Cortez. The patient is supposed to have another surgery this coming Monday with possible wound VAC placement. PAST MEDICAL HISTORY: 1. 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 2. Coronary artery disease status post CABG. 3. Right knee arthroplasty performed by Dr. Cortez. PAST SURGICAL HISTORY: 1. Right knee arthroplasty and I D on his infected right total knee. 2. Quadruple bypass 10 years ago. 3. Folate and iron deficiency. SOCIAL HISTORY: He lives with his . 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 He smokes less than 1/2 pack per day. No alcohol or illicit drug use. FAMILY HISTORY: The patient is adopted, but maternal history included coronary artery disease. ALLERGIES: Septra that causes itching, statins with unknown reaction. HOME MEDICATIONS: 1. Norvasc 5 mg p.o. at bedtime. 2. Aspirin 325 mg p.o. daily. 3. Clotrimazole 1 application p.o. as directed. 4. Colace 100 mg p.o. b.i.d. 5. Chili 10/325 1 to 2 each p.o. q.4, q.6 hours p.r.n. pain. 6. Irbesartan 1 tab p.o. daily 300 mg. 7. Icar C 1 each p.o. daily. 8. Methocarbamol 1 tab p.o. t.i.d. p.r.n. 9. Prilosec 20 mg p.o. daily. 10. Endocet 10 mg 325 1 tablet p.o. q.6 hours; however, medications have not been reconciled. 11. IV daptomycin. REVIEW OF SYSTEMS: A 14-point review of systems completely negative except for those mentioned in HPI. The patient denies any headache, fever, chills, chest pain, no abdominal pain. No dark tarry stools or bright red blood per rectum. Denies any dizziness, syncopal episodes. PHYSICAL EXAMINATION: VITAL SIGNS: Temperature is 97.8, heart rate 80, respirations 16, blood pressure 116/66. O2 is 100% on room air. GENERAL: Mr. Valle is a pleasant 68-year-old male who is sitting up in the stretcher in no acute distress. HEENT: Atraumatic, normocephalic. [place]. NECK: Supple. Trachea midline. CARDIOVASCULAR: S1, S2 appreciated. No murmurs, gallops or rubs noted. No JVD noted. No lower extremity edema. Bilateral pedal pulses are palpable. PULMONARY: Bilateral breath sounds. Clear to auscultation. Bilaterally decreased in the bases. GASTROINTESTINAL: Soft, nontender, nondistended. Positive bowel sounds 4 quadrants. SKIN: Warm, dry and intact. Patient does have a dressing over his right knee. NEUROLOGIC: Patient is alert and oriented x 4. Follows commands. Moves all extremities. No focal deficits noted. DIAGNOSTIC DATA: 1. Chest x-ray, improved pulmonary edema except in the left lower lobe. Possibility of a superimposed pneumonia cannot be excluded. 2. Pulmonary arteriogram, COPD. Apparent COPD changes with interstitial fibrosis, possibly superimposed pulmonary edema and/or left lower lobe pneumonia. A medium right and small left pleural effusion. 3. EKG shows normal sinus rhythm with a right bundle branch block at 85 beats per minute. 4. Laboratory Data: White count 8, hemoglobin and hematocrit 7 and 22, platelet count 567,000. Sodium 138, potassium 4.9, BUN 37, creatinine 1.2, blood glucose 133. AST 73 , ALT 58, alkaline phosphatase 230. ProBNP is 33,724. ASSESSMENT AND PLAN: 1. New onset congestive heart failure. Per patient, he has no history of congestive heart failure. We will start him on a low-dose beta cindy, continue irbesartan, obtain an echocardiogram, consult Cardiology. Continue with IV Lasix, supplemental O2. Recheck a chest x-ray in the a.m. We will do strict I's and O's and daily weights. 2. Questionable left lower lobe pneumonia. Will continue with IV antibiotics. The patient has been short of breath; however, he denies any cough or productive sputum. No fever, no chills. 3. Anemia. The patient does have a folate and iron deficiency. We will transfuse him with 2 units. He was discharged on Icar C, which we will continue. 4. MRSA to his right total knee arthroplasty. The patient has been on IV daptomycin. We will continue to consult Dr. Cortez. Patient is supposed to have surgery next Monday for possible wound VAC placement. 5. Transaminitis. The patient has had elevated liver enzymes in the past. No history of liver disease. We will check a right upper quadrant ultrasound. It could be related to his congestive heart failure. 6. Coronary artery disease status post quadruple bypass 10 years ago. Aware. 7. Squamous cell tongue cancer status post chemotherapy and radiation. 8. Further recommendations to follow, physician evaluation, laboratory and diagnostic data. 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 cc: MD Dr. Bib Peck - Autom[employer] at [facility] MD Pepe Thayer MD [facility]
[2018-12-05 20:45] LABS: IRON SATURATION 4 %; TIBC 179 ug/dL
[2018-12-05 20:46] LABS: TOTAL IRON 7 ug/dL (53-167); UNBOUND IRON 172 ug/dL (112-346)
[2018-12-05 21:14] LABS: FERRITIN 357 ng/mL (30-400)
[2018-12-05] MEDS ORDERED: NS 500 ML IV SCH (22:00)
[2018-12-05] MEDS: COREG PO SCH (22:15)
[2018-12-05 23:59] LABS: T4 3.55 ug/dL (4.60-12.00); TSH 2.73 uIUmL (0.27-4.20)
[2018-12-06] MEDS ORDERED: LASIX IV ONE (00:40)
[2018-12-06] MEDS: LASIX IV SCH ×4 (01:07→21:22)
--- NOTE | 2018-12-06 06:55 | Diag Imaging Result Doc PS360 ---
CHEST-PORTABLE - 12/06/2018 INDICATION: dyspnea COMPARISON: 12/05/2018 FINDINGS: Stable left PICC line in good position. There is slight worsening in alveolar infiltrate diffusely and bilaterally, but most notably in the left lower lobe. Heart size remains normal. No pneumothorax or pleural effusion. IMPRESSION: Slight worsening in the extensive bilateral interstitial infiltrates, mainly in the left lower lobe. Electronically signed by Nacho Calvin 12/06/2018 6:53 AM
--- NOTE | 2018-12-06 07:02 | PROGRESS NOTE ---
DATE: 12/06/2018 Mr. Valle is seen status post septic total knee. He was admitted to the hospital for multiple medical complaints. We are going to plan on proceeding with debridement and irrigation of his knee, and placement of a wound VAC this evening around 05:00 if he is reasonably medically stabilized. If he is not medically stabilized by 05:00 tonight, I will need to consider proceeding with this next week as I will be out of town. Risks and benefits were discussed with the patient. He is willing to proceed. cc: Sravan Cortez MD
[2018-12-06 07:33] LABS: BASO# 0.07 X1000 (0.0-0.2); BASO% 0.8 % (0.0-0.8); EOS# 0.56 X1000 (0.0-0.7); EOS% 6.3 % (0.0-10.0); HEMATOCRIT 29.5 % (42.0-52.0); HEMOGLOBIN 9.6 g/dL (14.0-18.0); LYMPH% 6.8 % (20.5-51.1); MCH 26.7 PG (27-31); MCHC 32.5 g/dL (33-37); MCV 82.2 FL (81-99); MONO# 1.07 X1000 (0.11-0.59); MONO% 12.1 % (1.7-9.3); MPV 9.3 FL (7.4-10.4); NEUT# 6.52 X1000 (1.4-6.5); PLT 536 X1000 (130-400); RBC 3.59 XMIL (4.7-6.1); RDW 16.7 % (11.5-14.5); WBC 8.82 X1000 (4.8-10.8)
[2018-12-06 07:55] LABS: ALB/GLOB RATIO 0.6; ALBUMIN 2.9 g/dL (3.5-5.0); CALCIUM 9.6 mg/dL (8.8-10.2); CREATININE 1.3 mg/dL (0.7-1.2); POTASSIUM 4.1 mmol/L (3.5-5.1); TOTAL PROTEIN 7.7 g/dL (6.3-8.3)
[2018-12-06] MEDS: CUBICIN 500 MG in NS 100 ML IV SCH (08:32)
[2018-12-06] MEDS: COREG PO SCH ×2 (08:55→21:21)
[2018-12-06] MEDS: FOLIC ACID PO SCH (08:55)
[2018-12-06] MEDS ORDERED: AVAPRO PO SCH (09:00)
--- NOTE | 2018-12-06 12:16 | Diag Imaging Result Doc PS360 ---
US GB < RUQ (LIMITED) - 12/06/2018 INDICATION: elevated liver enzymes TECHNIQUE: COMPARISON: 11/08/2018 FINDINGS: Liver, gallbladder, pancreas, and right kidney are normal. Common bile duct measures 4 mm. Aorta, IVC, and main portal vein are patent. IMPRESSION: Negative exam. Electronically signed by Nacho Calvin 12/06/2018 12:13 PM
--- NOTE | 2018-12-06 14:12 | CARDIOLOGY CONSULTATION ---
DATE: 12/06/2018 CHIEF COMPLAINT ON PRESENTATION: Shortness of breath. HISTORY OF PRESENT ILLNESS: Mr. Valle is a 68-year-old male with a history of coronary disease and previous bypass grafting, normally followed by Dr. Mccartney. Last visit with her was May 2018. He had a knee replacement performed on October 23 with a subsequent reoperation on the . There was an MRSA infection of his arthroplasty. He has been on antibiotics since that time in the form of daptomycin. Followed by Dr. Daniels. Apparently the patient has been having issues with shortness of breath for the last couple of weeks. He was evaluated in the emergency room. He was found to have a hematocrit of 22 and a proBNP of 33,000. He also was found to have a transaminitis. Since that time, he has been transfused, and he feels a little bit better. He denies any overt orthopnea at home nor is he having any chest pain. We are pending an echocardiogram. PAST MEDICAL HISTORY: Significant for: 1. Coronary disease with coronary bypass grafting. This was performed [place] [address] Ocampo. He had a PLUNKETT to the left anterior descending, a vein graft to an obtuse marginal, saphenous vein graft to a 2nd OM, and a vein graft to the PDA. He has not had a heart catheterization since that time. His last ejection fraction was documented by echocardiogram in 2011, and that showed an ejection fraction of 55% to 60%. 2. Carotid artery disease. He had a 60% to 79% left ICA stenosis by Doppler in 2015. 3. Hypertension. 4. Hyperlipidemia. He had transaminitis on statin therapy and is currently on Repatha. 5. Chronic kidney disease. 6. Peptic ulcer disease. 7. Neoplasm of the tongue with chemotherapy and radiation therapy in 2008. SOCIAL HISTORY: He is , lives with his . 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 He smokes less than half a pack per day. No alcohol or illicit drugs. FAMILY HISTORY: The patient is apparently adopted. REVIEW OF SYSTEMS: A 10 system review of systems is negative except for those things mentioned in the HPI. PHYSICAL EXAMINATION: Vital signs: The patient is afebrile. His heart rate is 66, his blood pressure is 115/54. General: He is in no acute distress. HENT: Oropharynx is moist. Poor dentition. Eye: Examination shows pink conjunctiva and white sclerae. Neck: Examination shows no obvious thyromegaly or thyroid tenderness. Cardiovascular: He sounds to be in a regular rate and rhythm. I do not hear any obvious murmurs in this patient. He has no S3. He has no lower extremity edema. Lungs: His chest exam is notable for coarse breath sounds somewhat diffusely. He has no increased work of breathing. Abdomen: Soft, nontender, nondistended. He has no obvious organomegaly. Skin: Warm and dry throughout without any rashes. Neurological: He is moving all extremities well. He has no lateralizing deficits. PERTINENT DATA: His EKG shows sinus rhythm, right bundle branch block is suggested, and that was reviewed by me. He had a pulmonary arteriogram on the suggesting COPD changes with fibrosis. He has a possible superimposed pulmonary edema with a left lower lobe pneumonia and a medium right and a small left pleural effusions. He had an abdominal ultrasound showing no obvious abnormalities. His lab data shows a white count of 8.8, hematocrit 29, he had a hematocrit on the , his platelet count is 536,000. His sodium is 141, potassium 4.1, BUN 39, creatinine is 1.3 which is relatively stable for him. His magnesium level was 2.0. His AST is 70, ALT 57. His proBNP was 33,000 yesterday and greater than 35,000 today. He has an albumin of 2.9. ASSESSMENT: Mr. Valle is a 68-year-old gentleman who presented with: 1. Shortness of breath. 2. Severe anemia. 3. Elevated proBNP. 4. History of an infected knee arthroplasty. PLAN: Currently the main data point suggesting possible heart failure is his proBNP. His chest x- ray could possibly suggest a pneumonia. We are waiting on the echocardiogram results. His transaminitis could possibly be secondary to the daptomycin infusion. He certainly could have been short of breath from his significant anemia with which he presented. Currently we will follow up on the echocardiogram and proceed from there. Historically he has had normal ejection fractions but has not had an EF checked since 2011. cc: Bruce Mojica MD
[2018-12-06] MEDS ORDERED: LASIX IV SCH (15:30)
--- NOTE | 2018-12-06 16:15 | PROGRESS NOTE ---
DATE: 12/06/2018 SUBJECTIVE: As per the patient he is feeling better. He is still complaining of mild shortness of breath as compared with admission and yesterday he seems to be better. X-ray showed left lower lobe infiltrate which is likely due to pneumonia. His LFTs are elevated a little bit, as well as his proBNP. BUN and creatinine is around 1.2-1.3, but it looks like he has kidney dysfunction already. Abdominal ultrasound did not show any abnormality. CT angiogram of the chest showed possible COPD changes with interstitial fibrosis, possible pulmonary edema, and/or left lower lobe pneumonia, some pleural effusion. Cardiology Department already evaluated this patient. For now we will continue with the same management. I do not have an ejection fraction, and as per the patient he was normal before. He has been placed on a low dose of carvedilol. He is still on daptomycin and furosemide twice a day, which I will probably decrease the dose from 40-20 since this patient is feeling better. Again I will wait for the echocardiogram. Cardiology is on board. OBJECTIVE: Vital Signs: Temperature is 98.7 degrees, pulse 66, respiratory rate 18, blood pressure 115/54, oxygen saturation is 98% on room air. HEENT: Head is normocephalic. No trauma. PERRLA. Neck: Supple. No JVD. No masses. Central trachea. Chest: Decreased breath sounds mostly at the bases with some crepitus mostly on the left side, mild rales. Abdomen: Soft, nontender, nondistended. No hepatosplenomegaly. Extremities: His right knee has a dressing. Neurological: The patient is alert and oriented x3. No focal deficits. LABORATORY DATA: WBC 8.8, hemoglobin 9.6, hematocrit 29.5, platelet 536,000. Sodium 141, potassium 4.1, chloride 104, bicarbonate 25, BUN 39, creatinine 1.3, glucose 122, calcium 9.6, AST 70, ALT 57, alkaline phosphatase 230, proBNP greater than 35,000, albumin 2.9. ASSESSMENT AND PLAN: 1. Possible congestive heart failure. I do not have an echocardiogram at this moment, pending results. The Cardiology Department already evaluated this patient. For now we will continue with diuretics, but I will decrease the dose. I will continue with a low dose of beta blockers as well, and I will continue with his irbesartan. We will monitor. He is feeling better. 2. Questionable left lower lobe pneumonia versus fluid overload. We will continue with intravenous antibiotics. Probably this patient needs to be seen by the Infectious Disease Department. He is not complaining of fever or chills at this moment. 3. Anemia. This patient does have folate and iron deficiency anemia. He has been transfused with 2 units. The hemoglobin improved after transfusion. Continue with Icar-C. 4. Methicillin-resistant Staphylococcus aureus to his right knee, right total knee arthroplasty. Continue with intravenous daptomycin. Likely this patient will go for surgery today. 5. Transaminitis. This patient has had elevated liver enzymes in the past as well. No history of liver disease. We checked a right upper quadrant ultrasound that did not show any abnormality. 6. Coronary artery disease status post quadruple bypass 10 years ago. Aware. 7. Squamous cell tongue cancer status post chemotherapy and radiation. Aware. 8. Decrease folate level. We will replace it. cc: Cheo Kat MD
[2018-12-06] MEDS ORDERED: ROCEPHIN 1 GM in NS 50 ML IV SCH (17:00)
--- NOTE | 2018-12-06 17:08 | CONSULTATION ---
DATE OF CONSULTATION: 12/06/2018 CHIEF COMPLAINT: Right infected total knee arthroplasty. HISTORY OF PRESENT ILLNESS: Mr. Valle is a 68-year-old male, who underwent a right total knee arthroplasty several weeks ago, which unfortunately became infected. He was washed out previously, and he was scheduled to be washed out again next Monday. Yesterday, he presented to the emergency department with anemia and shortness of breath, and he was admitted for further evaluation and treatment. For past medical history past surgical history, allergies, and medications, see the admission history and physical. REVIEW OF SYSTEMS: Positive for right knee pain. All others negative. PHYSICAL EXAMINATION: General: This is a well-developed, well-nourished male. He is alert, oriented, and cooperative with the examination. He is in no acute distress. Vital Signs: Temperature is 98.7 degrees, respiratory rate is 18, blood pressure is 115/54, his oxygen saturation is 98% on room air. HEENT: Head is normocephalic, atraumatic. Neck: Supple. Respiratory: Breathing is nonlabored. Abdomen: Nondistended. Neurologic: He discerns soft touch to his right lower extremity. Gross motor function is intact. Musculoskeletal: Right knee: He has pain with range of motion of his right knee. Skin: There is necrotic tissue at the medial aspect of the incision. The incision is intact. ASSESSMENT: Right infected total knee arthroplasty with skin necrosis. PLAN: We are going to take him to the operating room for an irrigation and debridement with wound VAC placement. Dr. Cortez discussed with the patient the risks and benefits of surgery, including the risks of anesthesia. , bleeding, infection, damage to tendons, nerves, ligaments, and other imponderables were discussed with the patient, and the patient wishes to proceed with operative management at this time. Dictated by EVA Mahmood for Sravan Cortez MD cc: EVA Mahmood MD
[2018-12-06] MEDS: MYCOSTATIN SUSP PO SCH (21:21)
[2018-12-07 07:27] LABS: ALB/GLOB RATIO 0.6; ALBUMIN 2.7 g/dL (3.5-5.0); CALCIUM 8.8 mg/dL (8.8-10.2); CREATININE 1.3 mg/dL (0.7-1.2); POTASSIUM 3.8 mmol/L (3.5-5.1); TOTAL BILIRUBIN 1.01 mg/dL (0.20-1.00); TOTAL PROTEIN 7.3 g/dL (6.3-8.3)
[2018-12-07 07:33] LABS: BASO# 0.05 X1000 (0.0-0.2); BASO% 0.6 % (0.0-0.8); EOS# 0.76 X1000 (0.0-0.7); EOS% 9.1 % (0.0-10.0); HEMATOCRIT 29.3 % (42.0-52.0); HEMOGLOBIN 9.6 g/dL (14.0-18.0); LYMPH# 0.56 X1000 (1.2-3.4); LYMPH% 6.7 % (20.5-51.1); MCHC 32.8 g/dL (33-37); MCV 82.3 FL (81-99); MONO# 1.01 X1000 (0.11-0.59); MONO% 12.1 % (1.7-9.3); MPV 9.5 FL (7.4-10.4); NEUT% 71.5 % (42.2-75.2); PLT 559 X1000 (130-400); RBC 3.56 XMIL (4.7-6.1); WBC 8.38 X1000 (4.8-10.8)
[2018-12-07] MEDS: LASIX IV SCH (09:15)
[2018-12-07] MEDS: MYCOSTATIN SUSP PO SCH ×4 (09:15→20:02)
[2018-12-07] MEDS: FOLIC ACID PO SCH (09:15)
[2018-12-07] MEDS: COREG PO SCH ×2 (09:15→20:03)
[2018-12-07] MEDS: CUBICIN 500 MG in NS 100 ML IV SCH (09:15)
[2018-12-07] MEDS: ENTRESTO 49 MG-51 MG TABLET PO SCH ×2 (10:59→20:03)
[2018-12-07] MEDS: MYCAMINE 100 MG in NS 100 ML IV SCH (12:41)
--- NOTE | 2018-12-07 13:28 | INFECTIOUS DISEASE PROGRESS NO ---
DATE: 12/07/2018 PRESENT ILLNESS: Mr. Valle has been treated as an outpatient, most recently for methicillin- resistant Staphylococcus aureus infected right total knee arthroplasty, with an associated bacteremia. He had also developed a significant oral and esophageal candidiasis , which has kept him from being able to eat very much. Also, on his pulmonary arteriogram there is a possible left lower lobe pneumonia. He is anemic, and has received 2 units of blood. His liver enzymes are also slowly elevating, possibly due to the administration of high-dose oral fluconazole at home. MEDICATIONS: He has been receiving daptomycin 500 mg IV daily at home and here in the hospital. They also added ceftriaxone 1 g IV every 24 hours. We will discontinue both of these. He is receiving nystatin swish and swallow 4 times a day, which we will continue. PHYSICAL EXAMINATION: Vital Signs: Temperature is 99.1 degrees, pulse rate 62 , respiratory rate 18, blood pressure 109/63, O2 saturation is 100% on room air. General: This is a chronically ill- appearing, thin elderly gentleman. He is sitting up on the side of the bed currently in no acute distress. HEENT: Atraumatic, normocephalic. Oral mucous membranes are erythematous, with white- yellow patches noted in his mouth on his tongue. Conjunctivae are pale. Neck: Supple. Trachea is midline. Cardiovascular: Heart rate and rhythm are regular. Normal sinus rhythm on the monitor. Pedal and radial pulses are palpable bilaterally. Respiratory: Lung sounds are clear to auscultation, diminished in the bases. Abdomen: Soft, flat, and nontender. Bowel sounds are active. Integumentary: There is a PICC line in place to the left upper arm. The site is without edema, erythema, or drainage. He also has a dressing to the right knee, with a small amount of bloody drainage noted. There are dry, scabby abrasions noted along the incision line. Neurologic: He is awake, alert, and oriented, and able to move around fairly well with assistance, and generalized weakness. LABORATORY AND X-RAY: Today his white count is 8.38, hemoglobin 9.6 after 2 units of blood. His previous hemoglobin on admission was 7. Platelet count 559,000. Today, creatinine is 1.3, GFR 55. Total bilirubin 1.01, AST 150, ALT 97, alkaline phosphatase 281. He has previously grown a methicillin-resistant Staphylococcus aureus in his knee and his blood. Abdominal ultrasound done yesterday was negative. Chest x-ray shows slight worsening in the extensive bilateral interstitial infiltrates, mainly to the left lower lobe. Pulmonary arteriogram showed possible superimposed pulmonary edema and/or left lower lobe pneumonia. ASSESSMENT AND PLAN: Mr. Valle is being treated for an MRSA infected right total knee arthroplasty with an associated bacteremia. He also has a significant oral candidiasis, which he states is improving but is still making food consumption difficult. We will discontinue daptomycin and Rocephin at this time and cover his MRSA with ceftaroline, which will also help to cover any possible pneumonia. Since he has elevated liver enzymes we will not continue fluconazole but instead give him micafungin 100 mg IV daily and continue the oral nystatin swish and swallow. The tentative plan is for him to have knee surgery on Monday. We are encouraging him to stay in the meantime to get treatment for possible pneumonia and his oral candidiasis. These plans have been discussed with and recommended by Dr. Daniels. COMORBIDITIES: The comorbidities for Mr. Valle include that the patient is elderly, with protein calorie malnutrition, coronary artery disease, and history of squamous cell carcinoma of the tongue status post chemotherapy and radiation. Dictated by PETRA Demarco for Pepe Daniels MD This chart was documented by, PETRA Demarco and accurately reflects the services performed, treatment plan and medical decisions as attested by the providers signature Pepe Daniels MD. cc: Pepe Daniels MD [facility]
[2018-12-07] MEDS: TEFLARO 600 MG in NS 250 ML IV SCH ×2 (14:10→23:27)
--- NOTE | 2018-12-07 14:58 | ECHO REPORT ---
ORDER DATE: 12/05/2018 ECHOCARDIOGRAM: INDICATION: New onset heart failure. FINDINGS: 1. Right atrium appears normal in size at 3.2 cm. 2. Mild tricuspid regurgitation. RV systolic pressure of 56. 3. Mild reduction in RV systolic function with normal RV size. 4. Mild pulmonic insufficiency. 5. Moderate left atrial enlargement. 6. No mitral valve prolapse. Mild to moderate mitral regurgitation. 7. Dilated left ventricle with an end-diastolic dimension of 6 cm. Normal wall thicknesses with a posterior and interventricular septal wall thickness of 0.8 and 1.1 cm, respectively. Severe reduction in LV systolic function with an estimated EF of 25-30% with global hypokinesis. 8. Aortic valve opens well. It is trileaflet. No evidence of stenosis or insufficiency. 9. Aorta appears normal in visualized segments. 10. No pericardial effusion seen. cc: Bruce Mojica MD
--- NOTE | 2018-12-07 18:08 | PROGRESS NOTE ---
DATE: 12/07/2018 SUBJECTIVE: This patient states that he is feeling better. He is still complaining of mild shortness of breath, but compared with admission he seems to be breathing better. He has been treated for MRSA infected right total knee arthroplasty with an associated bacteremia. Infectious Disease Department following this patient. They have placed this patient on ceftaroline 600 mg every 12 hours. Echocardiogram done during this hospitalization showed a dilated left ventricle with an end- diastolic dimension of 6 cm. Severe reduction in left ventricle systolic function with an estimated ejection fraction of 25-30% with global hypokinesis. OBJECTIVE: Vital Signs: Temperature 98.1, pulse 65, respiratory rate 18, blood pressure 105/61. Oxygen saturation 95% on room air. HEENT: Head normocephalic. No trauma. PERRLA. Neck: Supple. No JVD. No masses. Central trachea. Chest: Decreased breath sounds mostly at the bases with some crepitus mostly on the left side. Mild rales. Abdomen: Soft, nontender, nondistended. No hepatosplenomegaly. Extremities: Right knee is a little bit swollen compared with the left knee, and pain. Neurologic: The patient is alert and oriented x 3. No focal deficits. LABORATORY: WBC 8.3, hemoglobin 9.6, hematocrit 29.3, platelet 555,000. Sodium 140, potassium 3.8, chloride 102, bicarbonate 22, BUN 42, creatinine 1.3, glucose 116, calcium 8.8. AST 150, ALT 97, alkaline phosphatase 281, albumin 2.7. ASSESSMENT AND PLAN: 1. CHF, systolic, ejection fraction around 25-30% on new echocardiogram. I will continue with the same management. He is on Lasix, beta blockers and PERLITA inhibitors. Cardiology Department on board. I will wait for their recommendations. 2. Questionable left lower lobe pneumonia versus fluid overload. Will continue with IV antibiotics. 3. MRSA bacteremia with infected right total knee arthroplasty. Continue with IV antibiotics, he has been switched to ceftaroline. 4. Transaminitis. This patient has had elevated liver enzymes in the past as well. No history of liver disease. We checked a right upper quadrant ultrasound that did not show any abnormality. We have discontinue his previous medications that can cause elevated LFTs. 5. Coronary artery disease status post CABG. Aware. 6. 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 7. Decreased folic acid level. We will replace it. cc: Cheo Kat MD
--- NOTE | 2018-12-07 22:23 | CARDIOLOGY PROGRESS NOTE ---
DATE: 12/07/2018 SUBJECTIVE: Mr. Valle reports his breathing is doing well. He is not having any orthopnea. No lower extremity edema. OBJECTIVE: On physical exam he is afebrile. Heart rate is 65, blood pressure 105/61. His intake and output are somewhat difficult to trend, as he does not have accurate intake or output recorded. He is noted to have a significant elevation in his urine output, with multiple unmeasured voids over the last several days. Generally in no acute distress. Cardiovascular: He sounds to be in a regular rate and rhythm. He has no obvious murmurs. He has no S3. He has no lower extremity edema. His chest exam sounds relatively clear, with mild rales in the bilateral bases. LABORATORY DATA: White count 8.3, hematocrit 29, platelet count 559,000. Sodium 140, potassium 3.8, BUN 42, creatinine is 1.3. ASSESSMENT: Mr. Valle is a 68-year-old white male with a history of coronary artery disease, who was found to have a new onset of systolic heart failure, as well as an infected knee arthroplasty. PLAN: He did not experience any significant ischemic-type symptoms to bring him into the hospital. His electrocardiogram does not show any acute findings. His echocardiogram seems to show a global hypokinesis. Presently, we will try to optimize him from a heart failure standpoint. I have added in Entresto. He is on Coreg. We will plan on reducing his furosemide to once daily and ensure strict input and output recordings. He has a proBNP ordered for the morning as well as a basic metabolic panel. Chest x-ray is ordered for the morning. We will try to make a better assessment of his volume status in the morning. It is again, difficult to assess secondary to lack of intake and output presently. Hopefully we can get him in a compensated, stable state for his knee washout procedure in this upcoming week, and then I would likely have him discharged, to follow up with Dr. Mccartney. At that point they can consider repetition of an ischemia evaluation. His bypasses were done in 2011. I do not believe he has had any sort of ischemia evaluation in the interim. The patient seems to understand the current plan. cc: Bruce Mojica MD
[2018-12-08] MEDS: BENADRYL PO PRN ×2 (01:25→22:57)
--- NOTE | 2018-12-08 06:54 | Diag Imaging Result Doc PS360 ---
EXAM: CHEST-PORTABLE HISTORY: dyspnea TECHNIQUE: Chest single COMPARISON: 08/05/2019 FINDINGS: Improved inspiratory effort. There are bilateral infiltrates. These are slightly less dense than on the prior study. Sternal wires are present. The heart is mildly prominent. No pleural effusions identified. No change in the left-sided PICC line. IMPRESSION: Mild interval improvement. Electronically signed by Frank Bazan 12/08/2018 6:52 AM
[2018-12-08 06:56] LABS: BASO# 0.05 X1000 (0.0-0.2); BASO% 0.6 % (0.0-0.8); EOS# 1.02 X1000 (0.0-0.7); EOS% 13.2 % (0.0-10.0); HEMATOCRIT 29.6 % (42.0-52.0); HEMOGLOBIN 9.7 g/dL (14.0-18.0); LYMPH# 0.63 X1000 (1.2-3.4); LYMPH% 8.2 % (20.5-51.1); MCH 26.9 PG (27-31); MCHC 32.8 g/dL (33-37); MONO# 1.02 X1000 (0.11-0.59); MONO% 13.2 % (1.7-9.3); MPV 9.4 FL (7.4-10.4); NEUT# 4.99 X1000 (1.4-6.5); NEUT% 64.8 % (42.2-75.2); PLT 599 X1000 (130-400); RBC 3.61 XMIL (4.7-6.1); RDW 17.1 % (11.5-14.5); WBC 7.71 X1000 (4.8-10.8)
[2018-12-08 07:18] LABS: CALCIUM 8.4 mg/dL (8.8-10.2); CREATININE 1.2 mg/dL (0.7-1.2); MAGNESIUM 1.9 mg/dL (1.5-2.7); POTASSIUM 3.7 mmol/L (3.5-5.1)
--- NOTE | 2018-12-08 09:56 | PROGRESS NOTE ---
DATE: 12/08/2018 SUBJECTIVE: Jimmie Valle is a 68-year-old male on whom Dr. Cortez is planning on doing an irrigation and debridement of his right knee on Monday. He has no complaints today. OBJECTIVE: His knee appears stable with no interval change. ASSESSMENT: Infected right total knee arthroplasty. PLAN: He will plan to have irrigation and debridement on Monday. We will be following along over the weekend. cc: Darek Yadav MD
[2018-12-08] MEDS: ENTRESTO 49 MG-51 MG TABLET PO SCH ×2 (10:03→20:52)
[2018-12-08] MEDS: MYCOSTATIN SUSP PO SCH ×4 (10:03→20:52)
[2018-12-08] MEDS: COREG PO SCH ×2 (10:03→20:56)
[2018-12-08] MEDS: FOLIC ACID PO SCH (10:03)
[2018-12-08] MEDS: LASIX IV SCH (10:04)
[2018-12-08] MEDS: ASPIRIN PO SCH (10:14)
[2018-12-08] MEDS: MYCAMINE 100 MG in NS 100 ML IV SCH (11:49)
--- NOTE | 2018-12-08 12:00 | PROGRESS NOTE ---
DATE: 12/08/2018 SUBJECTIVE: This patient is feeling better. He is not complaining of chest pain or shortness of breath, he is being treated for MRSA-infected right total knee arthroplasty with an associated bacteremia, Infectious Disease department following this patient and he has been placed on ceftaroline, hopefully he will have an I and D with wound VAC placement next week. OBJECTIVE: Vital Signs: Temperature 97.5 degrees, pulse 61, respiratory rate 16, oxygen saturation 94% on room air. HEENT: Head normocephalic. No trauma. PERRLA. Neck: Supple. No JVD. No masses. Central trachea. Chest: Decreased breath sounds mostly at the bases with some crepitus. Abdomen: Soft, nontender, nondistended. No hepatosplenomegaly. Extremities: Right knee a little bit swollen compared with the left knee, and pain. Neurological: Alert and oriented x3. No focal deficits. LABORATORY DATA: WBC 7.7, hemoglobin 9.7, hematocrit 29.6, platelets 599,000. Sodium 135, potassium 3.7, chloride 101, bicarbonate 21, BUN 43, creatinine 1.2, glucose 118 , calcium 8.4, magnesium 1.9. ASSESSMENT AND PLAN: 1. Congestive heart failure, systolic, ejection fraction around 25 to 30 percent on new echocardiogram. We will continue with the same management. He has been placed on Entresto, coma continue beta cindy, aspirin and furosemide. 2. Possible left lower lobe pneumonia versus fluid overload, continue with IV antibiotics. 3. Methicillin-resistant Staphylococcus aureus bacteremia with infected right total knee arthroplasty, continue with IV antibiotics. He has been receiving ceftaroline, he has been scheduled for an I and D of that knee next week with possible wound VAC placement. 4. Transaminitis. I will check a new CMP tomorrow. 5. Coronary artery disease status post coronary artery bypass grafting, aware. 6. 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 7. Decreased folic acid level, we have been replacing it. cc: Cheo Kat MD [facility]
[2018-12-08] MEDS: TEFLARO 600 MG in NS 250 ML IV SCH ×3 (13:19→23:54)
[2018-12-08] MEDS ORDERED: NORCO-10 PO PRN (17:14)
[2018-12-09 07:53] LABS: ALB/GLOB RATIO 0.6; ALBUMIN 2.6 g/dL (3.5-5.0); CALCIUM 8.2 mg/dL (8.8-10.2); CREATININE 1.2 mg/dL (0.7-1.2); TOTAL BILIRUBIN 0.81 mg/dL (0.20-1.00); TOTAL PROTEIN 7.1 g/dL (6.3-8.3)
[2018-12-09] MEDS: ASPIRIN PO SCH (08:24)
[2018-12-09] MEDS: MYCOSTATIN SUSP PO SCH ×4 (08:24→22:10)
[2018-12-09] MEDS: FOLIC ACID PO SCH (08:24)
[2018-12-09] MEDS: COREG PO SCH ×3 (08:24→22:12)
[2018-12-09] MEDS: ENTRESTO 49 MG-51 MG TABLET PO SCH ×2 (08:24→22:09)
[2018-12-09] MEDS: LASIX IV SCH (08:24)
--- NOTE | 2018-12-09 10:32 | INFECTIOUS DISEASE PROGRESS NO ---
DATE: 12/09/2018 PRESENT ILLNESS: The patient has a methicillin-resistant Staphylococcus aureus infected right total knee arthroplasty with an associated bacteremia. He also has oral and possible esophageal candidiasis. The patient also may have pneumonia. MEDICATIONS: The patient was on daptomycin and Rocephin. The patient also had been having nystatin swish and swallow. PHYSICAL EXAMINATION: Vital Signs: Temperature is 98.1 degrees, pulse 57, respirations 18, blood pressure 110/58. General: This is a chronically ill-appearing elderly male. He says he is having pain in his tongue, especially when he tries to eat. Head, eyes, ears, nose, and throat: He can hear my spoken words and see near objects. His tongue is erythematous. There are a few white patches also. Neck: No stiffness. No meningismus. Lungs: Clear to auscultation. Cardiovascular: Heart rate is regular. Abdomen: Soft and nontender. Neural: The patient is awake. He can move his extremities. There is no tremor. Skin: The right knee has slight separation of the incision. There also is some swelling of the knee. Extremities: Patient has a PICC in the left arm. The PICC site is not erythematous or draining. The patient's right knee has a dressing on it. I partially removed the dressing. There is about a 3 to 4 cm area of the patient's incision that has slightly opened up superficially. There is no surrounding erythema. DIAGNOSTIC STUDIES: CBC shows a white count of 7710, hemoglobin 9.7, and platelet count 599,000. Creatinine is 1.2, GFR 60, alkaline phosphatase 295. Chest x-ray shows improvement in the patient's bilateral infiltrates. ASSESSMENT: 1. The nurse has informed me that the patient's PICC has 1 port that is blocked. I have gone ahead and ordered Cathflo for that. 2. As regarding the patient's sore tongue, he does appear to have some candidiasis. I have added Valtrex for the possibility of HSV. I have requested that a specimen from the tongue be sent for HSV by PCR. RECOMMENDATIONS: I plan to continue with ceftaroline. This is day 2 of treatment with it. It should cover for methicillin-resistant Staphylococcus aureus and gram-negative rods. PLAN: The plan is to treat with ceftaroline. It will cover the methicillin- resistant Staphylococcus aureus right knee arthroplasty as well as bacteremia. COMORBIDITIES: Include: 1. Patient is elderly. 2. He has malnutrition. 3. History of squamous cell carcinoma of the tongue, treated with chemotherapy and radiation. Thank you for the consult. cc: Pepe Daniels MD [facility]
[2018-12-09] MEDS: CATHFLO IV ONE ×2 (10:35→15:07)
[2018-12-09] MEDS: MYCAMINE 100 MG in NS 100 ML IV SCH (10:35)
[2018-12-09] MEDS: STERILE WATER INJ. INJ ONE ×2 (10:35→15:07)
[2018-12-09] MEDS: TEFLARO 600 MG in NS 250 ML IV SCH ×3 (11:57→23:57)
--- NOTE | 2018-12-09 14:32 | PROGRESS NOTE ---
DATE: 12/09/2018 SUBJECTIVE: No acute events overnight. Will continue with the same management. Hopefully this patient will have an I D with wound VAC placement this coming week. OBJECTIVE: Vital signs: Temperature 97.6 degrees, pulse 58, respiratory rate 18, blood pressure 110/61, oxygen saturation 100% on room air. HEENT: Head normocephalic. No trauma. PERRLA. Neck: Supple. No JVD. No masses. Central trachea. Chest: Decreased breath sounds mostly at the bases with crepitus. Abdomen: Soft, nontender, nondistended. No hepatosplenomegaly. Extremities: No changes compared with yesterday. Right knee a little bit swollen compared with the left knee and pain. Neurological: The patient is alert and oriented x3. No focal deficits. LABORATORY: Sodium 140, potassium 4, chloride 105, bicarbonate 22, BUN 42, creatinine 1.2, glucose 125, calcium 8.2. AST 184, ALT 173, alkaline phosphatase 295, albumin 2.6. ASSESSMENT AND PLAN: 1. Congestive heart failure, systolic, ejection fraction 25 to 30%on a new echocardiogram. We will continue with the same management. He has been placed on Entresto, beta cindy, aspirin, and furosemide. He has not complaining of chest pain or shortness of breath at this moment. 2. Possible left lower lobe pneumonia versus fluid overload. Continue with IV antibiotics. 3. Methicillin-resistant Staphylococcus aureus bacteremia with infected right knee arthroplasty. Continue with IV antibiotics. He has been receiving ceftaroline. He has been scheduled for an I D of the infected knee this coming week with possible wound VAC placement. 4. Transaminitis. I will continue checking the LFTs. 5. Coronary artery disease status post coronary artery bypass graft. Aware. 6. 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 Aware. 7. Decreased folic acid level. We have been replacing folic acid. cc: Cheo Kat MD
[2018-12-09] MEDS: VALTREX PO SCH (18:24)
[2018-12-09] MEDS: PERCOCET-5 PO PRN (22:05)
[2018-12-09] MEDS: BENADRYL PO PRN (22:09)
[2018-12-10] MEDS: VALTREX PO SCH ×3 (05:01→18:56)
[2018-12-10 06:28] LABS: BASO# 0.06 X1000 (0.0-0.2); BASO% 0.8 % (0.0-0.8); EOS# 1.59 X1000 (0.0-0.7); EOS% 22.4 % (0.0-10.0); HEMATOCRIT 28.5 % (42.0-52.0); HEMOGLOBIN 8.9 g/dL (14.0-18.0); LYMPH# 0.81 X1000 (1.2-3.4); LYMPH% 11.4 % (20.5-51.1); MCH 26.1 PG (27-31); MCHC 31.2 g/dL (33-37); MCV 83.6 FL (81-99); MONO% 12.7 % (1.7-9.3); MPV 9.5 FL (7.4-10.4); NEUT# 3.74 X1000 (1.4-6.5); NEUT% 52.7 % (42.2-75.2); PLT 644 X1000 (130-400); RBC 3.41 XMIL (4.7-6.1); RDW 17.4 % (11.5-14.5)
[2018-12-10 06:57] LABS: AGAP 11; ALB/GLOB RATIO 0.5; ALBUMIN 2.3 g/dL (3.5-5.0); ALKALINE PHOSPHATASE 255 U/L (32-122); BUN 40 mg/dL (8-22); CALCIUM 8.2 mg/dL (8.8-10.2); CHLORIDE 105 mmol/L (98-107); COSMO 288; CREATININE 1.1 mg/dL (0.7-1.2); ESTIMATED GFR > 60; GLUCOSE 109 mg/dL (70-104); GOT 151 U/L (10-34); GPT 159 U/L (10-44); SODIUM 139 mmol/L (136-145); TCO2 23 mmol/L (25-35); TOTAL BILIRUBIN 0.66 mg/dL (0.20-1.00); TOTAL PROTEIN 6.7 g/dL (6.3-8.3)
[2018-12-10] MEDS: MYCOSTATIN SUSP PO SCH ×4 (08:31→21:08)
[2018-12-10] MEDS: COREG PO SCH ×2 (08:32→21:08)
[2018-12-10] MEDS: FOLIC ACID PO SCH (08:32)
[2018-12-10] MEDS: ENTRESTO 49 MG-51 MG TABLET PO SCH ×2 (08:32→21:09)
[2018-12-10] MEDS: LASIX IV SCH (08:32)
[2018-12-10] MEDS: ASPIRIN PO SCH (08:32)
[2018-12-10 08:56] LABS: EOS 14 % (1-10); LYMPHS 6 % (21-51); MONO 8 % (1-9); SEGS 72 % (42-75)
[2018-12-10 08:57] LABS: ANISOCYTOSIS 1+; HYPOCHROM 1+
[2018-12-10] MEDS: MYCAMINE 100 MG in NS 100 ML IV SCH (12:52)
[2018-12-10] MEDS: TEFLARO 600 MG in NS 250 ML IV SCH (13:03)
--- NOTE | 2018-12-10 15:50 | PROGRESS NOTE ---
DATE: 12/10/2018 SUBJECTIVE: No acute events overnight. I will put this patient n.p.o. after midnight since he likely will have surgery done tomorrow. OBJECTIVE: Vital Signs: Temperature 98.3 degrees, pulse 65, respiratory rate 17, blood pressure 114/62, oxygen saturation 97% on room air. HEENT: Head normocephalic. No trauma. PERRLA. Neck: Supple. No JVD. No masses. Central trachea. Chest: Decreased breath sounds mostly at the bases with crepitus. Abdomen: Soft, nontender, nondistended. No hepatosplenomegaly. Extremities: No edema. No clubbing. No cyanosis. Right knee is a little bit swollen compared with the left knee. Neurological: The patient is alert and oriented x3. No focal deficits. LABORATORY: WBC 7.1, hemoglobin 8.9, hematocrit 28.5, platelets 664,000. Sodium 139, potassium 4, chloride 105, bicarbonate 23, BUN 40, creatinine 1.1, glucose 109, calcium 8.2, AST 151, ALT 159, alkaline phosphatase 255, albumin 2.3. ASSESSMENT AND PLAN: 1. Congestive heart failure (CHF), systolic. Ejection fraction 25% to 30% on a new echocardiogram. We will continue with the same management. He has been placed on Entresto, beta cindy, aspirin, furosemide. He has no complaint of shortness of breath or chest pain at this moment. 2. Possible left lower lobe pneumonia versus fluid overload. Continue with IV antibiotics and diuretics. 3. Methicillin-resistant Staphylococcus aureus (MRSA) bacteremia and infected right knee arthroplasty. Continue with IV antibiotics per Infectious Disease department. He has been placed on ceftaroline. He has been scheduled for I D of the infected knee with possible wound VAC placement, probably tomorrow. 4. Transaminitis. Continue checking LFTs. 5. Coronary artery disease status post coronary artery bypass grafting (CABG). Aware. 6. Squamous cell tongue cancer status post chemotherapy and radiation. Aware. 7. Decreased folic acid level. I will continue replacing the folic acid. cc: Cheo Kat MD
[2018-12-10] MEDS: PERCOCET-5 PO PRN (21:07)
[2018-12-11] MEDS: TEFLARO 600 MG in NS 250 ML IV SCH ×3 (00:01→22:50)
--- NOTE | 2018-12-11 02:50 | INFECTIOUS DISEASE PROGRESS NO ---
DATE: 12/10/2018 PRESENT ILLNESS: Mr. Valle is being treated for a methicillin-resistant Staph aureus infection to his right total knee arthroplasty, with an associated bacteremia. He also has an improving oral and esophageal candidiasis, as well as a bilateral pneumonia. There is also a transaminitis, which has improved somewhat today from yesterday. He may also have a herpes simplex infection. We are awaiting the results of that oral swab. There is also transaminitis. MEDICATIONS: He is receiving ceftaroline 600 mg IV every 12 hours, and micafungin 100 mg IV every 24 hours. Today is day 3 of those medications. He is also on day 4 of nystatin swish and swallow 4 times a day, and day 1 of Valtrex 500 mg by mouth every 12 hours. PHYSICAL EXAMINATION: Vital Signs: Temperature is 98.5 degrees, pulse rate 52 , respiratory rate 20, blood pressure 107/50, oxygen saturation 94% on room air. General: This is a chronically ill- appearing, elderly gentleman. He is lying in the bed, currently in no acute distress. HEENT: Atraumatic, normocephalic. Oral mucous membranes are mildly erythematous, with some yellow patches noted on his tongue. Conjunctivae are pale. Neck: Supple. Trachea is midline. Cardiovascular: Heart rate and rhythm are regular and slow, sinus bradycardia on the monitor. Pedal and radial pulses are palpable bilaterally. Respiratory: Lung sounds are clear to auscultation in the upper lobes, diminished in the bases, with mild rales noted. Abdomen: Soft, flat, and nontender. Bowel sounds are active. Integumentary: A PICC line is in place to his left upper arm. The site is without edema, erythema, or drainage. His right knee has a small open area to the lower part of the incision, which has a white wound bed. The upper part of the incision has dry scabby areas noted. There is no drainage at this point. Neurologic: He is awake, alert, and oriented, able to move around in the bed with assistance. He is generally weak. LABORATORY AND X-RAY: Today his white count is 7.1, hemoglobin 8.9, platelet count 644,000. Creatinine is 1.1. Estimated GFR is greater than 60. Total bilirubin is 0.66, AST 151, ALT 159, alkaline phosphatase 255. No imaging reports today. ASSESSMENT AND PLAN: Mr. Valle is being treated for a MRSA to his right total knee arthroplasty, with an associated bacteremia, as well as an oral and esophageal candidiasis, with a possible herpes simplex. The patient also has a bilateral pneumonia, so he has been changed to ceftaroline in order to treat his MRSA infection and the pneumonia at the same time (he was previously on daptomycin, which does not penetrate the lungs). He is also receiving nystatin swish and swallow and Micafungin, which continues to improve his oral and esophageal candidiasis. We will continue these medications at this time. He is also on Valtrex for a possible oral herpes simplex. At this point, we will continue the Valtrex until we receive the final swab for herpes simplex. The tentative plan is for him to go to surgery again tomorrow for another irrigation and debridement. His liver enzymes have improved somewhat today, as compared to yesterday. We will continue to monitor. These plans have been discussed with and recommended by Dr. Daniels. COMORBIDITIES: He is elderly, with protein calorie malnutrition, and history of squamous cell carcinoma of the tongue, with chemotherapy and radiation treatment. Dictated by PETRA Demarco for Pepe Daniels MD This chart was documented by, PETRA Demarco and accurately reflects the services performed, treatment plan and medical decisions as attested by the providers signature Pepe Daniels MD. cc: Pepe Daniels MD [facility]
[2018-12-11] MEDS: VALTREX PO SCH (05:12)
[2018-12-11 07:34] LABS: ALB/GLOB RATIO 0.6; ALBUMIN 2.6 g/dL (3.5-5.0); CREATININE 1.2 mg/dL (0.7-1.2); MAGNESIUM 2.2 mg/dL (1.5-2.7); POTASSIUM 4.2 mmol/L (3.5-5.1); TOTAL BILIRUBIN 0.59 mg/dL (0.20-1.00); TOTAL PROTEIN 7.1 g/dL (6.3-8.3)
[2018-12-11] MEDS: MYCOSTATIN SUSP PO SCH ×4 (10:44→21:58)
[2018-12-11] MEDS: FOLIC ACID PO SCH (10:44)
[2018-12-11] MEDS: COREG PO SCH ×2 (10:45→21:57)
[2018-12-11] MEDS: ENTRESTO 49 MG-51 MG TABLET PO SCH ×2 (10:45→21:57)
[2018-12-11] MEDS: ASPIRIN PO SCH (10:46)
[2018-12-11] MEDS: MYCAMINE 100 MG in NS 100 ML IV SCH ×2 (10:54→11:25)
[2018-12-11] MEDS: LASIX IV SCH (10:54)
--- NOTE | 2018-12-11 15:49 | CARDIOLOGY PROGRESS NOTE ---
DATE: 12/11/2016 SUBJECTIVE: Mr. Valle denies any orthopnea or chest pain. He is due to undergo a possible washout procedure this evening of his right knee. OBJECTIVE: Vital Signs: He is afebrile. Heart rate is 63. His blood pressure is 112/62. General: He is in no acute distress. Cardiovascular: He sounds to be in a regular rate and rhythm. I do not hear any obvious murmurs. He has no lower extremity edema. Chest: Exam sounds clear bilaterally. He has no increased work of breathing. Abdomen: Soft, nontender. PERTINENT DATA: His sodium is 140, potassium 4.2, BUN 41, creatinine is 1.2. His proBNP is 12,991 which continues to drop. He had a 1 time proBNP of greater than 35,000. ASSESSMENT: Mr. Valle is a 68-year-old gentleman with a history of coronary artery disease who was found to have new onset systolic heart failure. PLAN: She will continue on Entresto as well as Coreg. He seems to be running a relatively negative fluid balance, although we have some difficulty matching his I's and O's based on recording. For now, we will continue on the current medications including the IV Lasix. He could feasibly go home on an oral Lasix dose of 40 mg daily. cc: Bruce Mojica MD
[2018-12-11] MEDS: DILAUDID ONE ×2 (16:16→16:19)
[2018-12-11] MEDS ORDERED: OXY IR ONE (16:51)
[2018-12-11] MEDS: OXY IR PO PRN ×2 (17:00→21:58)
[2018-12-11] MEDS ORDERED: NS 1,000 ML ONE (17:03)
[2018-12-11] MEDS ORDERED: HALDOL IV PRN (17:04)
[2018-12-11] MEDS ORDERED: ZOFRAN IV PRN (17:04)
[2018-12-11] MEDS ORDERED: MILK OF MAGNESIA PO PRN (17:04)
--- NOTE | 2018-12-11 17:51 | OPERATIVE NOTE ---
PROCEDURE DATE: 12/11/2018 PREOPERATIVE DIAGNOSIS: Wound dehiscence with marginal necrosis and infection, right total knee. POSTOPERATIVE DIAGNOSIS: Wound dehiscence with marginal necrosis and infection, right total knee. OPERATION: 1. Debridement and irrigation. 2. Application of wound vacuum-assisted closure, right knee. SURGEON: Luzmaria Cortez MD REAL ESTATE ASSET MANAGER: Jimmie Cruz RN. ANESTHESIA: General. COMPLICATIONS: None. PROCEDURE: This 68-year-old male presents for I and D of the right knee. Risks and benefits were discussed, and he is willing to proceed, including no guarantees. He was taken the operating room and satisfactory anesthesia obtained. The right leg was prepped and draped with Betadine scrub and paint. The leg was then sterilely draped. A time-out was taken to confirm operative site, procedure and patient. The leg was then wrapped with an Esmarch and tourniquet inflated to 300 mmHg. The previous incision was opened and any necrotic tissue and skin marginal necrosis was excised back to healthy tissue. Upon opening the skin incision, several of the sutures from the joint capsule had come loose. The joint capsule was opened and this thoroughly irrigated with 3 L of G.U. irrigant. One liter of Bactisure was then irrigated to reduce any biofilm and this irrigated out with sterile saline. The joint was then soaked with dilute Betadine for 3 minutes, which was washed out of the knee. The arthrotomy was then closed with #1 Prolene and the skin with 2-0 nylon monofilament sutures. A wound VAC was applied to maintain negative pressure to the wound and allow this to heal. The tourniquet was released, with good return of capillary blood flow. The patient was recovered from anesthesia and transferred to the recovery room in stable condition. No intraoperative complications were noted. Instrument count and sponge count was correct at the time of closure. cc: Sravan Cortez MD
--- NOTE | 2018-12-11 18:18 | PROGRESS NOTE ---
DATE: 12/11/2018 SUBJECTIVE: This is a 68-year-old with past medical history of recent right knee replacement 10/23/2018. Re-op on . The patient MR assay infection total knee arthroplasty. Been on IV antibiotics daily with daptomycin at 500 mg, I think. He has a history of anemia, hypertension, coronary artery disease status post quadruple bypass 10 years ago, squamous cell carcinoma and he has had increased shortness of breath, brought into the emergency room. In the emergency room was evaluated. ProBNP was 33,724, transaminitis and anemia. Hemoglobin 7, hematocrit 22. Images showed pulmonary edema. He was given 80 of IV Lasix and I put him on the surgical floor. PAST MEDICAL HISTORY: 1. Squamous cell carcinoma of the tongue, status post chemotherapy and radiation. 2. Coronary artery disease status post CABG. 3. Right knee arthroplasty performed by Dr. Cortez. PAST SURGICAL HISTORY: 1. Right knee arthroplasty. I D of the infected right total knee. 2. Quadruple bypass 10 years ago. 3. Folate and iron deficiency. So, on admission, new onset of congestive heart failure, questionable left lower lobe pneumonia. MRSA of the right total knee arthroplasty. EXAMINATION: General: Today he is feeling better. His is in the room, I think, and his computer peripheral equipment operator. Vital Signs: Temperature is 97.5, pulse 54, respirations 15, blood pressure 119/46. Urine output over 1000 mL. HEENT: His pupils are equal. Neck: No distended neck veins. Lungs: Clear in all lung reddy. Cardiovascular: Regular rhythm and rate without murmur or S3. Abdomen: Soft. Skin: Warm and dry. ASSESSMENT AND PLAN: 1. Treated with methicillin-resistant Staph aureus infection to the right total knee arthroplasty associated with bacteremia. She has had improving oral and esophageal candidiasis and bilateral pneumonia, also transaminitis which is somewhat improved as well. He may also have herpetic simplex infection, so he is on ceftaroline 600 mg IV q.12, micafungin 100 mg IV q.24 hours and today is the 4th day of those medications, day #5 of nystatin swish and swallow, and day #2 of Valtrex 500 mg by mouth q.12 hours. The plan is to do lavage, a laparoscopic lavage on that knee. He was previously on daptomycin, which does not penetrate the lungs and receiving nystatin swish and swallow. So, he is micafungin. He is also on Valtrex. He was changed to ceftaroline. Review of orders, I do not see any changes. 2. Congestive heart failure. He has been started on Entresto. 3. Iron deficiency anemia. He is on ferrous sulfate. He is also on folic acid. cc: Jerome Curtis MD
[2018-12-11] MEDS: PERIDEX MT SCH (21:57)
[2018-12-11] MEDS: COLACE PO SCH (21:58)
[2018-12-11] MEDS: TYLENOL PO SCH (22:49)
[2018-12-11] MEDS: PERCOCET-5 PO PRN (22:49)
[2018-12-12] MEDS: MORPHINE IV PRN ×2 (03:00→21:21)
[2018-12-12] MEDS: NS 1,000 ML IV SCH ×2 (03:01→18:31)
[2018-12-12] MEDS: PERCOCET-5 PO PRN (05:12)
[2018-12-12] MEDS: VALTREX PO SCH ×2 (05:13→17:57)
[2018-12-12 06:32] LABS: HEMOGLOBIN 8.2 g/dL (14.0-18.0)
[2018-12-12 06:39] LABS: HEMATOCRIT 26.4 % (42.0-52.0)
[2018-12-12 07:05] LABS: AGAP 10; BUN 32 mg/dL (8-22); CALCIUM 7.8 mg/dL (8.8-10.2); CHLORIDE 112 mmol/L (98-107); COSMO 292; ESTIMATED GFR > 60; GLUCOSE 108 mg/dL (70-104); SODIUM 143 mmol/L (136-145); TCO2 21 mmol/L (25-35)
[2018-12-12] MEDS ORDERED: ROBAXIN PO PRN (07:26)
[2018-12-12] MEDS ORDERED: PERCOCET-10 PO PRN (07:26)
[2018-12-12] MEDS ORDERED: MYCELEX TROCHE PO SCH (07:30)
--- NOTE | 2018-12-12 07:54 | PROGRESS NOTE ---
DATE: 12/12/2018 SUBJECTIVE: Mr. Valle is seen status post I and D and application of wound VAC to his total knee wound. At the present time, he seems to be doing well. From an Orthopedic standpoint, he can be discharged home at any point for outpatient followup. I have ordered home therapy. Therapy needs to limit motion from 0 to 30 degrees to avoid any stress on his knee incision. The wound VAC has been ordered to be changed with home health 3 times a week. We will follow up with him in roughly 2 weeks time. He is aware of these plans. We will sign off at this point and plan on seeing him in the office. cc: Sravan Cortez MD
--- NOTE | 2018-12-12 09:25 | PROGRESS NOTE ---
DATE: 12/12/2018 SUBJECTIVE: Mr. Valle is feeling much better today. He had surgery yesterday with lavage of his knee. OBJECTIVE: He remains afebrile. Temperature 98.4 degrees, pulse 72, respirations 17, blood pressure 121/64. Pupils are equal. Lungs are clear in all lung reddy anterolateral. Cardiovascular exam shows regular rhythm and rate without murmur or S3. Abdomen is soft. Skin is warm and dry. Urine output is 800 mL. He says his swallowing is doing much better. He is on full liquids right now. He would like to advance to soft diet. His mouth does not feel dry, and he is feeling much better. ASSESSMENT AND PLAN: 1. 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 He is on ceftaroline 600 mg IV q.12. Also, I have him on micafungin 100 mg IV q.24 hours as the 5th day of these medications. He is on nystatin swish and swallow, and put him on Valtrex as I thought it might be herpetic irritation in the mouth. His swallow is much better. We will advance him to a soft diet. 2. History of congestive heart failure. He is on Entresto, and appears well compensated. 3. Iron deficiency anemia. His hemoglobin and hematocrit are stable. Hematocrit is 28. Hemoglobin 8.9. REVIEW OF ORDERS: He is on Norvasc 5 mg at bedtime. He is on Colace 200 mg at bedtime, Oxy IR 5 mg q.3 hours p.r.n., normal saline at 83 mL an hour, aspirin 325 mg a day, Coreg 3.125 mg b.i.d., ceftaroline 600 mg q.12 hours, folic acid 1 mg daily, Lasix 40 mg a day, ferrous sulfate 325 mg with breakfast, Avapro 300 mg a day, Robaxin 750 mg t.i.d. p.r.n., micafungin 100 mg IV q.24 hours, oxycodone 10 mg q.6 hours p.r.n., Entresto 49/51 1 twice a day, and Valtrex 500 mg p.o. q.12. Mycelex Mariella as needed. cc: Jerome Curtis MD
[2018-12-12] MEDS: OXY IR PO PRN (09:27)
[2018-12-12] MEDS: ASPIRIN PO SCH (10:44)
[2018-12-12] MEDS: COREG PO SCH ×2 (10:45→21:20)
[2018-12-12] MEDS: FOLIC ACID PO SCH (10:45)
[2018-12-12] MEDS: ENTRESTO 49 MG-51 MG TABLET PO SCH ×2 (10:45→21:19)
[2018-12-12] MEDS: AVAPRO PO SCH (10:46)
[2018-12-12] MEDS: PERIDEX MT SCH ×2 (10:46→21:21)
[2018-12-12] MEDS: MYCOSTATIN SUSP PO SCH ×5 (10:46→21:21)
[2018-12-12] MEDS: LASIX IV SCH ×2 (10:46→10:54)
[2018-12-12] MEDS: TYLENOL PO SCH ×3 (10:46→20:58)
[2018-12-12] MEDS: FERROUS SULFATE PO SCH (10:52)
[2018-12-12] MEDS: MYCAMINE 100 MG in NS 100 ML IV SCH (10:53)
[2018-12-12] MEDS: TEFLARO 600 MG in NS 250 ML IV SCH (12:28)
--- NOTE | 2018-12-12 13:45 | INFECTIOUS DISEASE PROGRESS NO ---
DATE: 12/12/2018 PRESENT ILLNESS: The patient is being treated for methicillin-resistant Staph aureus infection to his right total knee arthroplasty and an associated bacteremia. The patient also has oral and esophageal candidiasis and there may even be herpes involved because the patient got better when we started the patient on Valtrex even though the HSV by PCR of the tongue was negative. MEDICATIONS: Currently patient is on ceftaroline 600 mg every 12 hours, micafungin 100 mg every 12 hours. This is day 3 of those medicines. He is also on nystatin swish and swallow and Valtrex 500 mg by mouth every 12 hours. PHYSICAL EXAMINATION: Vital Signs: Temperature is 98.4 degrees, pulse 72, respirations 16, blood pressure 120/60. Generally: This is a chronically ill-appearing, elderly male. He does look actually much better today. Head, eyes, ears, nose and throat: His tongue does not seem quite as red and most of the white patches are leaving. Neck: No stiffness. Lungs: Clear to auscultation. Cardiovascular: Regular heart rate. Abdomen: Soft and nontender. Extremities: The patient has a PICC in his left arm. The site is not erythematous or draining. The patient has a VAC in place, it was debrided yesterday by Dr. Cortez. Neurologic: The patient is alert. He can move his arms and legs. LAB AND X-RAY: Lab for today shows a hemoglobin of 8.2, hematocrit of 26.4, a creatinine of 1.0, and a GFR of greater than 60. ASSESSMENT AND PLAN: Planning on sending the patient home. He will be on ceftaroline 600 mg p.o. every 12 hours for approximately 7-1/2 weeks to treat not only his infected knee but the pneumonia also. Also he will be going home on micafungin 100 mg IV for 14 days and on Mycostatin swish and swallow for 8 weeks. Also he will be going on Valtrex 500 mg p.o. every 12 hours for 8 weeks also. I will have the patient come back to the office at 4 weeks and then again at 8 weeks. Hopefully at the 8 week time, we will be able to stop his medications and take out his PICC. COMORBIDITIES: Include the following. He is elderly. He has malnutrition. He has a history of carcinoma of the tongue for which he was treated with chemotherapy and radiation treatment. cc: Pepe Daniels MD
[2018-12-12] MEDS ORDERED: NORVASC PO SCH (21:00)
[2018-12-12] MEDS: COLACE PO SCH (21:20)
[2018-12-13] MEDS: TEFLARO 600 MG in NS 250 ML IV SCH ×2 (00:31→12:53)
[2018-12-13] MEDS: OXY IR PO PRN (00:32)
[2018-12-13] MEDS: MORPHINE IV PRN ×2 (00:36→09:54)
[2018-12-13] MEDS: VALTREX PO SCH (05:52)
[2018-12-13] MEDS: PRILOSEC PO SCH ×2 (05:53→06:55)
[2018-12-13] MEDS: TYLENOL PO SCH ×2 (06:55→08:28)
[2018-12-13 07:27] LABS: HEMATOCRIT 27.5 % (42.0-52.0); HEMOGLOBIN 8.4 g/dL (14.0-18.0)
[2018-12-13] MEDS: PERIDEX MT SCH (08:28)
[2018-12-13] MEDS: FOLIC ACID PO SCH (08:28)
[2018-12-13] MEDS: ASPIRIN PO SCH (08:28)
[2018-12-13] MEDS: MYCOSTATIN SUSP PO SCH ×2 (08:28→13:06)
[2018-12-13] MEDS: FERROUS SULFATE PO SCH (08:28)
[2018-12-13] MEDS ORDERED: ICAR-C PO SCH (09:00)
[2018-12-13] MEDS ORDERED: COLACE PO SCH (09:00)
[2018-12-13] MEDS: MYCAMINE 100 MG in NS 100 ML IV SCH (11:25)
[2018-12-13 12:09] VITALS: BP 115/61
[2018-12-13] MEDS: LASIX IV SCH (13:05)
[2018-12-13] MEDS: ENTRESTO 49 MG-51 MG TABLET PO SCH (13:06)
[2018-12-13] MEDS: AVAPRO PO SCH (13:06)
[2018-12-13] MEDS: COREG PO SCH (13:07)
--- NOTE | 2018-12-13 13:50 | DISCHARGE SUMMARY ---
ADMISSION DATE: 12/05/2018 DISCHARGE DATE: 12/13/2018 Jimmie Valle does not have a primary care physician. Orthopedist is Dr. Cortez. Infectious Disease has been Dr. Daniels. Electrophysiology Technologist is Dr. Mccartney. He presented with shortness of breath. HISTORY: A 68-year-old male with a past medical history of right knee replacement on 10/23/2018. He had a reoperation on the for MRSA infected knee. I think they put some seeds in, and lavaged it. He has been on IV antibiotics of daptomycin 500 mg I think a day. He has a history of anemia, hypertension, coronary artery disease status post quadruple bypass 10 years ago, and squamous cell carcinoma removal. The patient reports in the last week he has had increased shortness of breath. He was brought into the emergency room. [place]up [place] [address], transaminitis, anemia with a hemoglobin and hematocrit of 7 and 22 respectively. Imaging showed pulmonary edema. He was given 80 mg of IV Lasix transfused with 2 units of packed red blood, and given a dose of 80 mg of Lasix. He was short of breath which improved with IV Lasix. He was put on the surgical floor. PAST MEDICAL HISTORY: 1. Squamous cell carcinoma of the tongue, status post chemotherapy and radiation. 2. Coronary artery disease status post CABG. 3. Right knee arthroplasty performed per Dr. Cortez in October. PAST SURGICAL HISTORY: 1. Right knee arthroplasty and follow up surgery on the with ID of his infected knee and seed antibiotic implants. 2. Quadruple bypass 10 years ago. 3. Folate and iron deficiency. HOSPITAL COURSE: He was admitted with new onset of congestive heart failure. He was started on low-dose beta blockers, and treated his afterload with good compensation. He had supplementary O2 given and questionable left lower lobe pneumonia and anemia. MRSA of his right total knee on IV daptomycin followed by Dr. Cortez. He ended up having surgery to lavage that knee again, and have wound VAC placed as he had some more irritation from the outside. Transaminitis when he arrived, which resolved. History of coronary artery disease. No sign of active ischemia. History of squamous cell cancer chemotherapy and radiation in the past. Lavage was successful, and he was put on antibiotics. Dr. Daniels has been following, and felt we could get him home with his wound VAC so he will be on daptomycin and Rocephin. We have given him nystatin swish and swallow also for esophageal candidiasis. He will get several weeks of antibiotics. He had a PICC line placed, and so plan to discharge him today 12/13/2018. DISCHARGE MEDICATIONS: He will be on aspirin 325 mg a day, Norvasc 5 mg at bedtime, Coreg 3.125 mg b.i.d., Colace 200 mg at bedtime, ferrous sulfate 325 mg at breakfast, folic acid 1 mg daily, Avapro 300 mg a day, Icar C once a day, and Oxy IR 5 mg q.3 hours p.r.n. He also has some Percocet 10s. I think I will give him a prescription for the Percocet 10 to take p.r.n. He is on Entresto 49/51 1 twice a day and Valtrex 500 mg twice a day. Those medications have been arranged for him at home so we will discharge him home today. cc: Jerome Curtis MD
== END 2018-12-13 16:58 | disposition home health service (06) | DRG 264 ==
LOC: ED 13:38 → SUATTDRO 19:09 → 4N 19:09
PROVIDERS: ATTEND Emergency Medicine
CPT/HCPCS: 36430; 36591; 71010; 71045; 71275; 76705; 80048; 80053; 82270; 82550; 82565; 82607; 82728; 82746; 82948; 83540; 83550; 83735; 83880; 84436; 84443; 84484; 85014; 85018; 85025; 85610; 85730; 86850; 86900; 86901; 86920; 87529; 93005; 93306; 94640; 94761; 96365; 96374; 97116; 97162; 97530; 99285; 99291; A9270; J0696; J0712; J0878; J1170; J1940; J2248; J2270; J2997; J7030; J7040; J7050; P9016; Q9967; XXXXX

== ENCOUNTER 2019-03-18 10:00 | Inpatient (IN) ==
--- NOTE | 2019-03-18 10:25 | Diag Imaging Result Doc PS360 ---
EXAM: CT HEAD W/O CONTRAST HISTORY: STROKE LIKE SYMPTOMS TECHNIQUE: CT head without contrast. COMPARISON: None. FINDINGS: No parenchymal hemorrhage. No epidural or subdural hematoma. No subarachnoid hemorrhage. No mass identified on this noncontrasted exam. No hydrocephalus. No sinus opacification. IMPRESSION: No hemorrhage. Negative brain CT without contrast. This exam was performed using automated exposure control, adjustment of mA or kV according to patient size, and/or use of iterative reconstruction technique. Electronically signed by Frank Bazan 03/18/2019 10:22 AM
[2019-03-18 11:08] LABS: BASO# 0.08 X1000 (0.0-0.2); BASO% 0.9 % (0.0-0.8); EOS# 0.82 X1000 (0.0-0.7); EOS% 9.2 % (0.0-10.0); HEMATOCRIT 38.1 % (42.0-52.0); HEMOGLOBIN 12.5 g/dL (14.0-18.0); IMM GRAN# 0.02 X1000 (0.0-0.04); IMM GRAN% 0.2 % (0.0-0.5); LYMPH# 1.22 X1000 (1.2-3.4); LYMPH% 13.8 % (20.5-51.1); MCH 29.9 PG (27-31); MCHC 32.8 g/dL (33-37); MCV 91.1 FL (81-99); MONO# 0.81 X1000 (0.11-0.59); MONO% 9.1 % (1.7-9.3); MPV 9.5 FL (7.4-10.4); NEUT# 5.92 X1000 (1.4-6.5); NEUT% 66.8 % (42.2-75.2); PLT 301 X1000 (130-400); RBC 4.18 XMIL (4.7-6.1); RDW 16.1 % (11.5-14.5); WBC 8.87 X1000 (4.8-10.8)
[2019-03-18 11:29] LABS: ALB/GLOB RATIO 0.9; ALBUMIN 4.4 g/dL (3.5-5.0); CALCIUM 10.1 mg/dL (8.8-10.2); POTASSIUM 4.4 mmol/L (3.5-5.1); TOTAL BILIRUBIN 0.32 mg/dL (0.20-1.00); TOTAL PROTEIN 9.3 g/dL (6.3-8.3)
[2019-03-18 12:09] LABS: URINE SOURCE CLEAN CATCH
[2019-03-18 12:17] LABS: BILIRUBIN URINE NEGATIVE (NEGATIVE); BLOOD URINE SMALL (NEGATIVE); COLOR YELLOW; GLUCOSE URINE NEGATIVE (NEGATIVE); KETONE URINE TRACE mg/dL (NEGATIVE); LEUKOCYTES URINE NEGATIVE (NEGATIVE); NITRITE URINE NEGATIVE (NEGATIVE); PH URINE 5.5; PROTEIN URINE 100 mg/dL (NEGATIVE); SP GRAVITY URINE 1.005; TURBIDITY URINE CLEAR (CLEAR); UROBILINOGEN URINE NORMAL (NORMAL)
[2019-03-18 12:47] LABS: UR EPITHELIAL CELLS <10 /HPF (<10); URINE BACTERIA NEGATIVE /HPF; URINE RBC <10 /HPF (<10); URINE WBC <10 /HPF (<10)
[2019-03-18 13:08] LABS: URINE YEAST NONE SEEN
[2019-03-18] MEDS ORDERED: NS 1,000 ML IV ONE ×2 (13:18→15:49)
--- NOTE | 2019-03-18 13:23 | PROVIDER DOCUMENTATION ---
This chart was entered by Nola Garcia Scribe, acting as scribe for Belgica Muir MD. HPI-Neurological Disorder - General Chief Complaint: Altered Mental Status Stated Complaint: SLURRED SPEECH,DIARRHEA Time Seen by Provider: 03/18/19 10:17 Source: family () Allergies/Adverse Reactions: Patient Allergies Allergy/AdvReac Type Severity Reaction Status Date / Time sulfamethoxazole Allergy Severe ITCHING Verified 11/08/18 15:01 [From ] trimethoprim [From ] Allergy Severe ITCHING Verified 11/08/18 15:01 Lhyggve-Wfu-Epe Reductase AdvReac Severe Unknown Verified 11/09/18 17:03 Inhibitor Home Medications: Home Medication List Medication Instructions Recorded Confirmed Last Taken Type Amlodipine [Norvasc] 5 mg PO QHS 10/18/18 12/05/18 11/19/18 History Omeprazole [Prilosec] 20 mg PO DAILY@0700 10/18/18 12/05/18 11/20/18 History Hydrocodone/Acetaminophen [[place] 1 - 2 each PO Q4-6H PRN PRN #40 10/24/18 022 11/20/18 Rx 10-325 Tablet] tablet Irbesartan 1 tab PO DAILY 11/08/18 12/05/18 11/20/18 History Methocarbamol 1 tab PO TID PRN 11/08/18 12/05/18 11/20/18 History Oxycodone HCl/Acetaminophen 1 tab PO Q6H PRN 11/08/18 12/05/18 11/20/18 History [Endocet 10-325 mg Tablet] Aspirin 325 mg PO DAILY #30 tab 11/12/18 12/05/18 11/20/18 Rx Docusate Sodium [Colace] 100 mg PO BID #60 cap 11/12/18 12/05/18 11/20/18 Rx Iron Carbonyl/Ascorbic Acid 1 ea PO DAILY #120 tab 11/12/18 12/05/18 11/20/18 Rx [Icar-C] Clotrimazole 1 applicatn PO DIRECTED 12/05/18 12/05/18 Unknown History Clotrimazole [Mycelex Yair] 10 mg PO 4XDAY 55 Days #220 yair 12/12/18 Unknown Rx Valacyclovir HCl [Valtrex] 500 mg PO Q12H 55 Days #110 tab 12/12/18 Unknown Rx Carvedilol 3.125 mg PO BID 30 Days #60 tab 12/13/18 Unknown Rx Folic Acid 1 mg PO DAILY 30 Days #30 tablet 12/13/18 Unknown Rx Sacubitril/Valsartan [Entresto 49 1 each PO BID 30 Days #60 tablet 12/13/18 Unknown Rx mg-51 mg Tablet] - History of Present Illness-Neuro Nature of Presenting Problem: Patient is a 68 year old male who presents with for altered mental status, slurred speech and generalized weakness for 3 days. Patient's states patient has been confused and disoriented. states patient is currently on IV antibiotics for MRSA in his right knee after having a knee replacement in October of 2018. also states patient has been having diarrhea. Severity: reports: mild Onset/Duration: reports: 3 days ago Timing: reports: still present Context: reports: impaired speech (slurred), other (AMS) Character of Altered Mental Status: reports: disoriented, confused Character of Deficits: reports: new weakness, impaired speech (slurred) New weakness or altered sensation location:: reports: general (diffuse) Cognitive Baseline: alert, oriented x3 Associated Symptoms: reports: denies symptoms Similar Symptoms Previously?: Yes Recently seen or treated by another doctor?: Yes Review of Systems - Adult - REVIEW OF SYSTEMS - ADULT ROS:: ROS per family () Constitutional: reports: no symptoms reported. denies: chills, fever, fatique Eyes: reports: no symptoms reported Ears, Nose, Mouth & Throat: reports: no symptoms reported Cardiovascular: reports: no symptoms reported Respiratory: reports: no symptoms reported Gastrointestinal: reports: see HPI, diarrhea. denies: abdominal pain, nausea, vomiting Genitourinary: reports: no symptoms reported Musculoskeletal: reports: see HPI, muscle weakness (generalized). denies: back pain, muscle aches, neck pain Integumentary: reports: no symptoms reported Neurological: reports: see HPI, slurred speech, other (AMS - confused and disoriented). denies: dizziness/vertigo, headache/migraines, numbness Psychiatric: reports: no symptoms reported Endocrine: reports: no symptoms reported Hematologic/Lymphatic: reports: no symptoms reported Allergic/Immunologic: reports: no symptoms reported All Other Systems: Reviewed and Negative Past History - Adult - PAST MEDICAL HISTORY-ADULT Review of Records: reports: Nursing Assessment Review, Medications Reviewed, Social history reviewed & non-contributory. Major Childhood Illnesses: reports: denies history Cardiovascular: reports: HTN Respiratory: reports: denies history Gastrointestinal: reports: denies history Obstetrical/Gynecological: reports: denies history Genitourinary: reports: denies history Musculoskeletal: reports: denies history Neurological: reports: denies history Psychiatric: reports: denies history Endocrine/Immune: reports: denies history Other Conditions: reports: other cancer (tongue), MRSA (knee) - PRIOR SURGERIES/PROCEDURES Surgical/Procedure History: reports: CABG, joint replacement - IMMUNIZATION STATUS Childhood Immunizations: See Nurse Assessment Flu Vaccine: See Nurse Assessment - FAMILY HISTORY Family History: reviewed, not pertinent - SOCIAL HISTORY Smoking: denies Substance Use: denies Living Situation: family Physical Exam- Neurological - Physical Exam-Neuro Initial Vital Signs Reviewed: Yes General Appearance: alert, no apparent distress, thin. negative: lethargic, slow to respond Eye Exam: bilateral eye: normal inspection, PERRL, EOMI Head Injury: no evidence of injury. negative: contusions, ecchymosis, lacerations Respiratory: chest non-tender, lungs clear, normal breath sounds. negative: crackles, rhonchi Cardiovascular: normal peripheral pulses, regular rate, rhythm. negative: tachycardia, systolic murmur Abdominal Exam: normal bowel sounds, non tender, soft. negative: guarding, rebound Extremity: non-tender, other (bandage present to right knee). negative: deformity, erythema military cook Exam: normal hearing, normal speech, PERRL. negative: abnormal speech, facial paresthesias Neurologic: other (disoriented to place and time. oriented to person). negative: aphasia, facial droop Integumentary: normal color, normal turgor, warm/dry. negative: cyanosis, ecchymosis, erythema, jaundice Psych/Mental Status: normal mood/affect, other (disoriented to place and time. oriented to person). negative: anxious Progress - PLAN OF CARE/RESULTS Progress/Plan/Lab Results: Vital Signs - 8 hr 03/18/19 10:05 03/18/19 10:34 03/18/19 12:10 Temperature 97.2 F L Pulse Rate 88 57 L 64 Respiratory Rate 18 20 12 Blood Pressure 119/61 147/68 O2 Sat by Pulse Oximetry 98 99 100 Laboratory Results - last 24 hr 03/18/19 03/18/19 03/18/19 10:54 10:54 10:54 WBC 8.87 RBC 4.18 L Hgb 12.5 L Hct 38.1 L MCV 91.1 MCH 29.9 MCHC 32.8 L RDW Std Deviation 16.1 H Plt Count 301 MPV 9.5 Immature Gran % (Auto) 0.2 Neut % (Auto) 66.8 Lymph % (Auto) 13.8 L [place] % (Auto) 9.1 Eos % (Auto) 9.2 Baso % (Auto) 0.9 H Immature Gran # (Auto) 0.02 Neut # (Auto) 5.92 Lymph # (Auto) 1.22 [place] # (Auto) 0.81 H Eos # (Auto) 0.82 H Baso # (Auto) 0.08 Sodium 138 Potassium 4.4 Chloride 110 H Carbon Dioxide 16 L Anion Gap 12 BUN 86 H Creatinine 4.0 H Estimated GFR/1.73 m2 15 BUN/Creatinine Ratio 22 Glucose 104 Calculated Osmolality 302 Calcium 10.1 Total Bilirubin 0.32 AST 16 ALT 9 L Alkaline Phosphatase 97 Total Protein 9.3 H Albumin 4.4 Globulin 4.9 Albumin/Globulin Ratio 0.9 Plasma Lactate 1.1 Urine Source Urine Color Urine Turbidity Urine pH Ur Specific [place] Urine Protein Ur Glucose (Stick) Ur Ketones (Stick) Urine Blood Urine Nitrite Urine Bilirubin Urobilinogen Dipstick Urine Leukocytes Urine WBC (Auto) Urine RBC (Auto) U Epithel Cells (Auto) Urine Bacteria (Auto) Urine Crystals Small Round Cells Urine Casts Urine Yeast-like Cells 03/18/19 12:00 WBC RBC Hgb Hct MCV MCH MCHC RDW Std Deviation Plt Count MPV Immature Gran % (Auto) Neut % (Auto) Lymph % (Auto) [place] % (Auto) Eos % (Auto) Baso % (Auto) Immature Gran # (Auto) Neut # (Auto) Lymph # (Auto) [place] # (Auto) Eos # (Auto) Baso # (Auto) Sodium Potassium Chloride Carbon Dioxide Anion Gap BUN Creatinine Estimated GFR/1.73 m2 BUN/Creatinine Ratio Glucose Calculated Osmolality Calcium Total Bilirubin AST ALT Alkaline Phosphatase Total Protein Albumin Globulin Albumin/Globulin Ratio Plasma Lactate Urine Source CLEAN CATCH Urine Color YELLOW Urine Turbidity CLEAR Urine pH 5.5 Ur Specific [place] 1.005 Urine Protein 100 A Ur Glucose (Stick) NEGATIVE Ur Ketones (Stick) TRACE A Urine Blood SMALL A Urine Nitrite NEGATIVE Urine Bilirubin NEGATIVE Urobilinogen Dipstick NORMAL Urine Leukocytes NEGATIVE Urine WBC (Auto) <10 Urine RBC (Auto) <10 U Epithel Cells (Auto) <10 Urine Bacteria (Auto) NEGATIVE Urine Crystals Not Reportable Small Round Cells Not Reportable Urine Casts Not Reportable Urine Yeast-like Cells NONE SEEN Orders Category Date Time Status CT HEAD W/O CONTRAST [CT] Stat Exams 03/18/19 10:04 Completed BLOOD CULTURE [BLDCUL] Stat Lab 03/18/19 11:09 Results CBC WITH ELECTRONIC DIFF [HEME] Stat Lab 03/18/19 10:54 Completed CMP [COMPREHENSIVE METABOLIC PANEL] [CHEM] Stat Lab 03/18/19 10:54 Completed LACTATE, PLASMA [CHEM] Stat Lab 03/18/19 10:54 Completed URINALYSIS W/POSS RFLX CULT [URINALYSIS] Stat Lab 03/18/19 12:00 Completed URINE MANUAL MICROSCOPIC [URINALYSIS] Stat Lab 03/18/19 12:00 Completed Result Diagrams: 03/18/19 10:54 03/18/19 10:54 - EKG 1 Time of EKG reading by physician:: 10:40 EKG Read and Signed by:: Belgica Muir EKG Interpretation (*Must complete 3 of following elements*): Abnormal (T wave abnormality, consider lateral ischemia) Rate: 56 Rhythm: sinus bradycardia [place]: normal QRS: RBB CO Interval: normal Comments: left anterior fascicular block; bifascicular block; - CT/MRI 1 CT Study: Head Impression: See EMR Report ( EXAM: CT HEAD W/O CONTRAST HISTORY: STROKE LIKE SYMPTOMS TECHNIQUE: CT head without contrast. COMPARISON: None. FINDINGS: No parenchymal hemorrhage. No epidural or subdural hematoma. No subarachnoid hemorrhage. No mass identified on this noncontrasted exam. No hydrocephalus. No sinus opacification. IMPRESSION: No hemorrhage. Negative brain CT without contrast. This exam was performed using automated exposure control, adjustment of mA or kV according to patient size, and/or use of iterative reconstruction technique. Electronically signed by Frank Bazan 03/18/2019 10:22 AM 03/18/19 1022 Interpreting Physician: Frank Bazan MD Dictated Date/Time: 03/18/19 1021 cc: Belgica Muir MD; Pepe Daniels MD) - CONSULTS/PCP/HOSPITALIST Notification #1 *Consult/PCP/Hospitalist*: PETRA Dooley for Hospitalist Time Discussed: 13:09 (Dr. Lorenzo accepted admit ) Reason/Comments: Dr. Muir consulted with Soumya about patient. Consult Disposition: Will see in ED, Admit Departure - Departure Date of Disposition Decision: 03/18/19 Time of Disposition Decision: 13:09 DIAGNOSIS: Altered mental status, Creatinine elevation, Septic joint of right knee joint Disposition: ADMITTED INPATIENT 09 Certified Medical Emergency: Emergent Condition: Fair Referrals and Follow-Ups: Pepe Daniels MD [Primary Care Provider] - [facility],Arvin Feliz [Outside Vendor] - - Critical Care Note This patient required my direct & personal management of CC.: No Attestation - Physician/ BLAYNE Attestation The physician spent face to face time with patient:: Yes Advanced Practice Provider documentation review:: Supervising physician onsite and consulted in the evaluation and care of this patient. The physician did have a face to face encounter with the patient. This chart was documented by the indicated scribe, (Nola Garcia Scribe) and accurately reflects the services I performed and decisions made by me, Belgica Muir MD, as attested by the provider's signature.
--- NOTE | 2019-03-18 15:02 | EKG Report ---
Test Performed on : 03/18/2019 10:40:32 AM Test Reason : ED. NO order in [place] Blood Pressure : / mmHG Vent. Rate : 056 BPM Atrial Rate : 056 BPM P-R Int : 140 ms QRS Dur : 142 ms QT Int : 478 ms P-R-T Axes : 034 -77 099 degrees QTc Int : 461 ms Sinus bradycardia. Right bundle branch block Left anterior fascicular block Bifascicular block T wave abnormality, consider lateral ischemia Abnormal ECG When compared with ECG of 18-MAR-2019 10:40, (Unconfirmed) No significant change was found Unconfirmed Result
--- NOTE | 2019-03-18 15:17 | HISTORY AND PHYSICAL ---
PRIMARY CARE PROVIDER: None. INFECTIOUS DISEASE: Dr. Pepe Daniels. CHIEF COMPLAINT: Per , he has had some altered mental status and slurred speech and decreased p.o. intake. HISTORY OF PRESENT ILLNESS: Mr. Valle is a 68-year-old male who carries a past medical history of a recent knee replacement in 10/2018 and reoperation on the . He had a MRSA infection of the total knee arthroplasty. He had been on antibiotics. His MRSA infection cleared. He then grew out a Pseudomonas that he has been on IV antibiotics now with cefepime 2 g every 8 hours for 3 or 4 weeks under the direction of Dr. Daniels. His most recent cultures have been negative. I did speak with Kajal at Dr. Daniels' office. We are going to stop his antibiotics for now and re-culture the 2 spots on his knee. He was brought into the ED by his for slurred speech and decrease in appetite and altered mental status. This all began on Monday and he has increasingly became worse. In the ED he was found to have a BUN of 86 and a creatinine of 4.0. Head CT did not show anything acute. Upon assessment, the patient does not answer any of my questions. He really does not follow any commands. He will look at you. He is extremely fidgety in bed. We will admit him to medical telemetry floor for acute renal failure and altered mental status, rule out CVA. Clinically he does appear dehydrated. We will give him a fluid bolus and continue IV fluids. I will stay in close contact with Dr. Daniels' office and consult Nephrology. REVIEW OF SYSTEMS: Twelve-point review of systems limited secondary to patient's altered mental status. PAST MEDICAL HISTORY: 1. 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 2. Coronary artery disease status post CABG. 3. Right knee arthroplasty performed by Dr. Cortez with I D on the affected right total knee. He has been on IV antibiotics since October under the care of Dr. Daniels. 4. Folate and iron deficiency. PAST SURGICAL HISTORY: 1. Right knee arthroplasty an I D on his infected right total knee. The patient has been on IV antibiotics since October and when he is cleared he will need a graft. 2. CABG 10 years ago. SOCIAL HISTORY: He lives with his . Less than a half pack per day smoker. No alcohol or illicit drug use. He is at home with [facility] and is on IV antibiotics. FAMILY HISTORY: He was adopted. Maternal history included coronary artery disease. ALLERGIES: 1. Septra that causes itching. 2. Statin, unknown. HOME MEDICATIONS: Have not been verified. PHYSICAL EXAMINATION: VITAL SIGNS: Temperature is 97.2 degrees, heart rate 64, respirations 12, blood pressure 147/60, O2 is 100% on room air. GENERAL: Mr. Valle is a 68-year-old male who is lying on the stretcher. He is fidgety. He will look at you if you say his name. He does not answer any questions appropriately. He is not really following any commands. He is pulling off his telemetry as well as pulling his gown up and down, but is in no acute distress. HEENT: Atraumatic, normocephalic. PERRL. NECK: Supple. Trachea midline. CARDIOVASCULAR: S1, S2 appreciated. No murmurs, gallops, or rubs. RESPIRATORY: Lung sounds clear bilaterally. GI: Flat, nontender, nondistended. Positive bowel sounds 4 quadrants. EXTREMITIES: Negative for edema. Bilateral pedal pulses are palpable. SKIN: Patient does have a right knee wound that is completely wrapped and covered. It does appear to have some purulent drainage on the dressing. He also has a PICC line to his right upper quadrant. They are both due for dressing changes today. NEUROLOGIC: Hard to assess secondary to the patient's altered mental status. DIAGNOSTIC DATA: Head CT showed no hemorrhage. Brain MRI, MRA is currently pending. LABORATORY DATA: White count 8, hemoglobin and hematocrit 12 and 38, platelet count is 301,000. Sodium 138, potassium 4.4, BUN 86, creatinine 4.0, blood glucose is 104. Urinalysis was negative for any bacteria, 100 protein, small blood, trace ketones. ASSESSMENT AND PLAN: 1. Metabolic encephalopathy. Unsure if this is related to underlying infection, medications, or possible cerebrovascular accident. His head CT was negative. We will check a brain MRI, MRA. He does appear to be somewhat dehydrated. We will give him a saline bolus and continue with IV fluids. Continue with frequent neuro checks. 2. Cerebrovascular accident rule out. See #1. 3. Acute renal failure, possibly secondary to dehydration and medications. I spoke with Kajal, nurse practitioner with Dr. Daniels. His last knee cultures were negative, so we will hold his IV antibiotics. He had been receiving in 2 g of IV cefepime and has been on antibiotics since October. We will give him a fluid bolus and continue with IV fluids. Consult Nephrology. Will check urine studies, renal ultrasound. 4. Right knee infection. The patient does have some purulent drainage. It appears to be a greenish-yellowish purulent drainage coming from his bandage. We will have Wound Care on board as well as re-culture the 2 areas that are on his knee and consult Wound Care. Again, we will speak with Dr. Daniels' office by phone and if needed we will do a formal consult. For now we are holding his IV antibiotics given his acute renal failure and his negative cultures. He is currently afebrile and his white count is normal. His lactate is also normal. 5. 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 Aware. 6. Coronary artery disease status post coronary artery bypass graft. did not report any chest pain. 7. Folate and iron deficiency. Aware. 8. Clinical dehydration. We will continue with IV fluids. 9. Further recommendation to follow physician evaluation, laboratory and diagnostic data. Dictated by PETRA Myers for Ap Lorenzo MD cc: MD Pepe Sow MD Reginald D. Gladish, MD Eston G. Norwood III, MD I have seen and examined Mr Valle today. was at the bedside and she dis most of the talking and history giving. I have also reviewed his labs and imaging studies. Mr Valle is extremely dry and volume depleted complicated with BENITO and hypercalcemia. He was alleged to have some slurred speech which I think its probably related with his acute metabolic encephalopathy state. We will volume resuscitate and repeat his labs tomorrow. Nephrology and ID have been consulted. I ahree with the above HPI and the plan reflects my opinion discussed with the WOMEN DESIGNER. I have also discussed my plan with Mr and Mrs Valle, they both voiced understanding. MIREILLE LARA
[2019-03-18] MEDS ORDERED: ATIVAN IV ONE (18:32)
--- NOTE | 2019-03-18 19:18 | NEPHROLOGY CONSULTATION ---
DATE: 03/18/2019 REASON FOR CONSULTATION: Acute kidney injury. HISTORY OF PRESENT ILLNESS: Mr. Valle is a 68-year-old white male who had a recent total knee arthroplasty but has been unfortunately complicated by MRSA infection with open wounds on the right knee. He has been receiving IV antibiotics as an outpatient. In this context, he has been deteriorating with decreased p.o. intake and decreased level of consciousness. He has continued to take his routine outpatient medications. He was brought to the emergency room by his where he was normotensive with a heart rate of 88, but his initial lab data found creatinine 4.0. Baseline creatinine 1.0 as of 03/04. 1.6 on the . He does have history of acute kidney injury back in October. According to the chart, he was receiving 3rd generation cephalosporin. It is not clear to me whether he was also receiving vancomycin. PAST MEDICAL HISTORY: As above. He also ischemic cardiomyopathy, history of bypass grafting, etc. HOME MEDICATION: Reviewed. ALLERGIES: Trimethoprim sulfa, reductase inhibitors. SOCIAL HISTORY: He is . Lives with his . Continues to smoke. No alcohol. FAMILY HISTORY: Noncontributory. REVIEW OF SYSTEMS: Noncontributory. PHYSICAL EXAMINATION: Vital Signs: Blood pressure 141/63, heart rate 66, respiration 18, afebrile. Generally: Acute distress. Skin: Warm and dry. Conjunctivae are pink. Neck: Neck veins are not distended. Heart: Regular. Lungs: Equal. No crackles. Abdomen: Soft, nontender. Bowel sounds present. Extremities: No edema. A large area of granulation tissue overlying the right knee. IMPRESSION: Acute kidney injury, presumably intravascular volume depletion in the context of Entresto. Continue IV fluids as ordered overnight. We will repeat his labs in the morning. Imaging and urine electrolytes have been ordered. We will await these results. cc: Rome Lara MD
[2019-03-19] MEDS ORDERED: NS 1,000 ML IV SCH (04:30)
[2019-03-19] MEDS ORDERED: ATIVAN IV ONE (06:23)
[2019-03-19 06:59] LABS: BASO# 0.05 X1000 (0.0-0.2); BASO% 0.5 % (0.0-0.8); EOS# 0.55 X1000 (0.0-0.7); EOS% 5.9 % (0.0-10.0); HEMATOCRIT 32.5 % (42.0-52.0); HEMOGLOBIN 10.4 g/dL (14.0-18.0); LYMPH# 1.36 X1000 (1.2-3.4); LYMPH% 14.7 % (20.5-51.1); MCH 29.8 PG (27-31); MCV 93.1 FL (81-99); MONO# 0.96 X1000 (0.11-0.59); MONO% 10.3 % (1.7-9.3); MPV 9.7 FL (7.4-10.4); NEUT# 6.36 X1000 (1.4-6.5); NEUT% 68.6 % (42.2-75.2); PLT 264 X1000 (130-400); RBC 3.49 XMIL (4.7-6.1); WBC 9.28 X1000 (4.8-10.8)
[2019-03-19 07:20] LABS: ALB/GLOB RATIO 0.9; ALBUMIN 3.5 g/dL (3.5-5.0); CALCIUM 9.3 mg/dL (8.8-10.2); CREATININE 4.5 mg/dL (0.7-1.2); POTASSIUM 4.6 mmol/L (3.5-5.1); TOTAL BILIRUBIN 0.2 mg/dL (0.20-1.00); TOTAL PROTEIN 7.5 g/dL (6.3-8.3)
--- NOTE | 2019-03-19 09:30 | NEPHROLOGY PROGRESS NOTE ---
DATE: 03/19/2019 SUBJECTIVE: The patient is resting in bed. He becomes extremely agitated with any movement or interaction. OBJECTIVE: Vital Signs: Temperature 97.8 degrees, pulse 66, respiratory rate 18, blood pressure 130/57. Intake and output have not been documented. He is incontinent. General: This is an elderly gentleman currently in bed. Again, he becomes extremely agitated when trying to examine him. HEENT: Normocephalic, atraumatic. Oral mucosa is dry. Neck: Supple. There is no JVD. Cardiovascular: Reveals a regular rate and rhythm. Pulmonary: He has equal excursion and is clear bilaterally. Abdomen: Soft, with positive bowel sounds. : He is incontinent. He has an adult brief on. Extremities: No edema. His extremities are wasted. There is a large area wrapped in a gauze dressing over the right knee. Integumentary: Skin is warm and dry otherwise. Lab Data: WBC of 9.2, hemoglobin 10.4. Sodium 142, potassium 4.2, chloride 116 (110), carbon dioxide 12 (16), BUN 90 (86), creatinine 4.5 (4.0), serum osmolality was 327, albumin 3.5. ASSESSMENT AND PLAN: 1. Acute kidney injury. Again, presumed intravascular volume depletion in the setting of combination PERLITA inhibitor and ARB. That medication has been held. The patient has received intravenous fluids overnight. Continue his intravenous resuscitation. 2. Electrolytes, acid-base balance. His chloride remains elevated and is actually a little bit higher, as well as his acidosis is slightly worse. I will change his intravenous fluids over to D5 with 2 amps of bicarb as his sodium is 142 today. We will continue at the same rate. Check labs again in the morning. No other intervention at this time. Dictated by PETRA Rush for Rome Lara MD Face to face encounter, data reviewed, discussed with Coco Hutchinson on 03/19/19. I agree with the above assessment and plan of care. cc: Rome Lara MD [facility]
--- NOTE | 2019-03-19 09:38 | Diag Imaging Result Doc PS360 ---
EXAM: US RENAL 2 (RETROPER) COMPLETE HISTORY: ARF TECHNIQUE: Renal ultrasound COMPARISON: 11/08/2018 FINDINGS: The left kidney measures 12.6 x 5.1 x 5.7 cm. Normal renal echotexture. There is mild increased renal echotexture. No hydronephrosis. No mass. The right kidney measures 12.3 x 5.6 x 5.0 cm. Normal renal echotexture. Borderline mild increased renal echotexture. No hydronephrosis. No renal mass. There is a tiny amount of free fluid about the liver. IMPRESSION: Increased renal echotexture which can be seen with medical renal disease. Electronically signed by Frank Bazan 03/19/2019 9:36 AM
[2019-03-19] MEDS: SODIUM BICARBONATE 8.4% 100 MEQ in D5W 1,000 ML IV SCH ×2 (09:52→20:03)
[2019-03-19] MEDS ORDERED: ATIVAN PO ONE (12:27)
--- NOTE | 2019-03-19 16:23 | Diag Imaging Result Doc PS360 ---
MRI BRAIN W/O CONTRAST - 03/18/2019 INDICATION: AMS COMPARISON: Head CT from 03/18/2019 FINDINGS: There is severe, severe patient motion artifact. No obvious abnormality. IMPRESSION: Patient could not hold still for the MRI. Electronically signed by Nacho Calvin 03/19/2019 4:21 PM
--- NOTE | 2019-03-19 16:51 | PROGRESS NOTE ---
DATE: 03/19/2019 SUBJECTIVE: Patient resting in bed, he is confused. OBJECTIVE: Vital signs: Temperature 97.8 degrees, pulse 66, blood pressure 130/67, oxygen saturation 100%. HEENT: Atraumatic, normocephalic. Cardiovascular: S1, S2. Respiratory: Has evidence of good entry bilateral. Abdomen: Soft, nontender. No masses felt. Extremities: No evidence of edema. Central nervous system: No obvious focal deficits noted. LABS: WBC 9.3, hematocrit is 32.5 with a platelet count of 264,000. Sodium is 142, potassium 4.6, chloride is 116, bicarb is 12, BUN 9, creatinine 4.5. ASSESSMENT AND PLAN: 1. Encephalopathy query etiology. MRI of the brain currently pending. Follow up on blood cultures report. Will obtain thyroid function test as well as ammonia level and also get an EEG. Neurology consulted. 2. Acute kidney injury. Follow up on renal function. Nephrology is following. 3. History of right knee arthroplasty complicated with infection. Infectious Disease consulted for antibiotic management. 4. Coronary artery disease. Asymptomatic. 5. History of squamous cell carcinoma of the tongue status post chemoradiation. 6. History of iron as well as folate deficiency. Aware. 7. Deep vein thrombosis prophylaxis SCD. 8. Gastrointestinal prophylaxis PPI. cc: Bubba Larsen MD
[2019-03-20] MEDS: COLACE PO SCH ×3 (05:55→23:27)
[2019-03-20] MEDS: PRILOSEC PO SCH (06:04)
[2019-03-20] MEDS: SODIUM BICARBONATE 8.4% 100 MEQ in D5W 1,000 ML IV SCH ×2 (06:04→18:29)
[2019-03-20] MEDS ORDERED: TIGHT: 0.2 ML/HR FOR DIALYSIS MISC PRN (07:32)
[2019-03-20] MEDS ORDERED: HEPARIN IV PRN (07:32)
[2019-03-20] MEDS ORDERED: NS 2,000 ML MISC PRN (07:32)
--- NOTE | 2019-03-20 10:00 | GENERAL SURGERY CONSULTATION ---
DATE: 03/20/2019 HISTORY OF PRESENT ILLNESS: Mr. Valle is a 68-year-old who had a total knee replacement in October that was complicated by an infection. He has been on IV antibiotics as an outpatient. He has now developed slurred speech and altered mental status. He has developed acute renal insufficiency. PAST MEDICAL HISTORY: Pertinent for coronary disease. He has had coronary bypass in the past. He has had his right knee arthroplasty done in October. SOCIAL HISTORY: He has been a smoker. He has an attentive . No alcohol or drug use. FAMILY HISTORY: He is adopted. ALLERGIES: Include Septra and statins. PHYSICAL EXAMINATION: He is afebrile. Heart rate 56, blood pressure 145/53. He is confused and somewhat combative. He has some temporal wasting. His skin is tanned. LABORATORY DATA: BUN is 90, creatinine 4.5, potassium 4.6. PLAN: I have been asked to place a Vas-Cath. Because of his combative nature and his altered mental status, we will do it in the operating room. We will plan to proceed today when we can get in the operating room. I have discussed this with his . cc: Bennett Leblanc MD
[2019-03-20] MEDS ORDERED: XYLOCAINE-MPF 2% ONE (10:05)
[2019-03-20] MEDS ORDERED: DIPRIVAN 1% ONE (10:06)
[2019-03-20] MEDS: ICAR-C PO SCH (10:51)
--- NOTE | 2019-03-20 11:33 | INFECTIOUS DISEASE PROGRESS NO ---
DATE: 03/20/2019 PRESENT ILLNESS: Mr. Valle was seen by us in the office last week as a follow-up for right knee infection which has grown Pseudomonas. He was receiving IV cefepime at home with assistance from his . At that time, his creatinine had started to creep up and had gotten to 1.6, and his told me that he was not eating or drinking much at home so I talked to him at length about the importance of good nutrition and hydration. Soon after, he became confused and has been admitted to the hospital with acute kidney injury and altered mental status. MEDICATION: He has been receiving cefepime 6 g as a continuous does every 24 hours. At this point, we will continue to hold antibiotics. PHYSICAL EXAMINATION: Vital Signs: Temperature is 97.4 degrees, pulse rate 56, respiratory rate 18, blood pressure 145/53, O2 saturation is 100% on room air. General: This is an elderly, acutely ill-appearing gentleman. He is writhing in the bed, nonverbal, and scratching his extremities violently. HEENT: Atraumatic, normocephalic. Oral mucous membranes are pink and moist. Conjunctivae are pale. Neck: Supple. Trachea is midline. Cardiovascular: Heart rate is regular and slow, sinus bradycardia on the monitor. Respiratory: Lung sounds are clear to auscultation bilaterally. Abdomen: Soft, flat, and nontender. Bowel sounds are active. Extremities: Free of edema. Integumentary: There is a PICC line in place to his left upper extremity. The site is without edema, erythema, or drainage. The right knee has two wounds with white/pink wound beds and no surrounding erythema or edema. The lower knee wound tracks upward toward the upper wound. Neurologic: He is clearly demented and confused. Nonverbal at this time. He will make eye contact, and he did follow the command to open his mouth, but otherwise, he is combative and responding inappropriately. He is moving all extremities without difficulty in the bed. DIAGNOSTIC STUDIES: None available today. However, yesterday his white count was 9.8, hemoglobin 10.4, platelet count 264,000. Creatinine 4.5, GFR 13, total bilirubin 0.20, AST 12, ALT 7, alkaline phosphatase 81. Ammonia 72. Urinalysis done on admission showed no bacteria or white blood cells. Blood cultures have shown no growth after 48 hours. Right knee culture, as an outpatient last week, showed no growth. The right knee culture on admission to the hospital has shown no growth thus far and is preliminary, with a Gram stain showing no bacteria or yeast. Previous to that, he had two right knee cultures which grew Pseudomonas and previous to that he had a methicillin- resistant Staphylococcus aureus right knee infection with an associated bacteremia, back in October. Head CT on admission was negative. EKG shows sinus bradycardia. Renal ultrasound shows increased renal echotexture which could be medical renal disease. ASSESSMENT AND PLAN: Mr. Valle has been admitted for an acute kidney injury with altered mental status. He was receiving cefepime at home, but this was stopped once he was admitted to the hospital. At this point he has one negative right knee culture, and the other culture has had no growth on the preliminary report. Dr. Daniels has been following the patient's progress on his right knee, and the tentative plan is to have a skin graft put on that knee once the infection is gone. Plans have been made for dialysis today. For now, we will continue to follow him and hold his antibiotics. These plans have been discussed with and recommended by Dr. Daniels. COMORBIDITIES: For Mr. Valle include that he is elderly, with protein- calorie malnutrition, coronary artery disease, congestive heart failure, and long-term antibiotic use since the of the year for an infected right total knee arthroplasty. Dictated by PETRA Demarco for Pepe Daniels MD cc: MD MARCO Shepherd
[2019-03-20] MEDS ORDERED: KEFZOL 1 GM/D5W 1 GM/50 ML IVPB ONE (11:41)
[2019-03-20] MEDS ORDERED: NS 250 ML ONE (11:41)
[2019-03-20] MEDS ORDERED: HEPARIN ONE ×2 (11:41)
--- NOTE | 2019-03-20 13:15 | PROGRESS NOTE ---
DATE: 03/20/2019 SUBJECTIVE: Patient resting in bed. Remains confused. OBJECTIVE: Vital Signs: As follows: Temperature is 97.4, pulse 56, respiratory 16, blood pressure is 145/53. Oxygen 100%. HEENT: Atraumatic, normocephalic. Cardiovascular: S1, S2. Respiratory: Has evidence of good air entry bilaterally. Abdomen: Soft, nontender. No masses. Extremities: No evidence of edema. Central Nervous System: No obvious focal deficit noted. LABS: TSH is 1.79. ASSESSMENT AND PLAN: 1. Encephalopathy, query etiology. MRI of the brain does not show any acute lesions; however, this study was limited because of motion artifact. Neurology Team consulted. 2. Acute kidney injury. The patient has had a dialysis catheter put in place in anticipation of hemodialysis. 3. History of right knee arthroplasty complicated with infection. ID consulted. 4. Coronary artery disease. Asymptomatic. 5. History of squamous cell cancer of the tongue. Status post chemoradiation. 6. History of iron as well as a folate deficiency. Aware. 7. DVT prophylaxis. Sequential compression devices. 8. GI prophylaxis. Proton pump inhibitor. cc: Bubba Larsen MD
--- NOTE | 2019-03-20 14:11 | OPERATIVE NOTE ---
PROCEDURE DATE: 03/20/2019 PROCEDURE: Right-sided internal jugular vein Vas-Cath placement (Trialysis catheter). SURGEON: Bennett Leblanc MD. IRRIGATOR OVERHEAD: Haris. PREOPERATIVE DIAGNOSIS: Acute kidney injury. POSTOPERATIVE DIAGNOSIS: Acute kidney injury. DESCRIPTION OF PROCEDURE: Satisfactory general anesthesia was achieved and LMA was used. The right side of the neck and upper anterior chest were prepped and draped in a sterile fashion. We identified the internal jugular vein with ultrasound. We anesthetized the skin, then made a stab incision and introduced the needle into the internal jugular vein. We passed the guidewire without difficulty into the superior vena cava. We then dilated the tract sequentially. Then passed the Trialysis catheter to the extent that it would go. Blood came back in each lumen spontaneously. We then flushed each lumen with Hep-Lock solution at 1000 units/mL. After each lumen was flushed we then clamped off the lumens. We then secured the flange to the skin with a 3- 0 nylon contained within the tray. A sterile OpSite was applied. He tolerated it well. Was sent to the recovery room in satisfactory condition. cc: MD Rome Vivas MD
[2019-03-20 14:55] LABS: BASO# 0.04 X1000 (0.0-0.2); BASO% 0.4 % (0.0-0.8); EOS# 0.59 X1000 (0.0-0.7); EOS% 6.5 % (0.0-10.0); HEMATOCRIT 29.6 % (42.0-52.0); HEMOGLOBIN 9.9 g/dL (14.0-18.0); LYMPH# 0.75 X1000 (1.2-3.4); LYMPH% 8.2 % (20.5-51.1); MCH 30.2 PG (27-31); MCHC 33.4 g/dL (33-37); MCV 90.2 FL (81-99); MONO% 8.8 % (1.7-9.3); NEUT# 6.94 X1000 (1.4-6.5); NEUT% 76.1 % (42.2-75.2); PLT 249 X1000 (130-400); RBC 3.28 XMIL (4.7-6.1); RDW 15.2 % (11.5-14.5); WBC 9.12 X1000 (4.8-10.8)
[2019-03-20 15:30] LABS: CALCIUM 8.4 mg/dL (8.8-10.2); CREATININE 3.1 mg/dL (0.7-1.2); POTASSIUM 2.9 mmol/L (3.5-5.1)
--- NOTE | 2019-03-20 17:17 | NEPHROLOGY PROGRESS NOTE ---
DATE: 03/20/2019 SUBJECTIVE: He is obtunded. His is present. She states his health has been precipitously worse in the last days. No shortness of breath. OBJECTIVE: Blood pressure 143/57, heart rate 53, respiration 18, afebrile. Generally obtunded, no distress. Skin is warm, dry, hyperpigmented. Oropharynx is dry. Neck veins are not distended. Heart is regular. No rubs. Lungs are equal. No crackles. Abdomen is soft, nontender with bowel sounds present.Extremities: No edema, clubbing, or cyanosis. IMPRESSION: Acute kidney injury. Differential includes acute tubular necrosis, acute interstitial nephritis, acute postinfectious glomerular nephritis. He would benefit from a biopsy, but he could not participate at this time. We will check complements, repeat urine, check urine protein, etc. I counseled the regarding his uremia and both the diagnostic and therapeutic options available to us. I counseled her that he may benefit neurologically from dialysis. We will initiate treatment today after Dr. Leblanc has placed a Vas-Cath. cc: Rome Lara MD
--- NOTE | 2019-03-20 18:34 | CONSULTATION ---
DATE OF CONSULTATION: 03/19/2019 HISTORY: I saw Mr. Valle yesterday but neglected to dictate the consult note. History was taken from his at the bedside and from review of available hospital records. He had been stable mentally and neurologically until Monday, 5 days ago today, when noticed he seemed sluggish, hard to keep his attention, slurred speech. What he said made sense. was able to understand him. He seemed to have to concentrate but was otherwise able to understand what was said to him. He was dealing with knee problem and discomfort but had been walking short distances without assistance. did not notice any change in his gait ability 5 days ago. There was no focal neurologic feature. There was never unconsciousness or unresponsiveness. He did not complain of headache. Although speech was slurred, his chewing and swallowing seemed unaffected. reports no prior similar problems. There is no history of serious head injury, diagnosed stroke, TIA, seizure, other neurologic event. He does not abuse ethanol. He had made some antibiotic changes but no other recent medication changes. Recent antibiotics included cefepime. On presentation, he was found to have elevated BUN and creatinine significantly above his baseline. There was anemia. He has been afebrile. Systolic blood pressures were stable 110s to 140s. Noncontrast CT of the head was unremarkable. Brain MRI was attempted yesterday but was not satisfactory because of his movement. I saw him again today. reports no significant change in mental state overnight. There is no new history. He has had graft placed and started dialysis today. EEG was ordered but had to be postponed because of the surgery and dialysis. PHYSICAL EXAMINATION: On exam, Mr. Valle was sleepy when I saw him yesterday after a dose of lorazepam. He could be waked and followed some simple commands. He moved all limbs. Plantar response is silent bilaterally. Limb tone is symmetric. Extraocular movements are full. Facial motility is symmetric. Head and neck are unremarkable. There is no meningismus. He was not attentive to visual field testing or to cognitive testing. He withdrew each limb with pinprick application, but he was not attentive to more detailed sensory testing. I did not test his gait. IMPRESSION: Global encephalopathy, uncertain etiology. With 's report that he had been completely cognitively intact until several days ago, I suspect this is a toxic/metabolic disturbance associated with acute renal failure, uremia, cefepime. History does not suggest seizure. We will eventually get EEG. He has not had definite myoclonus and I do not think we need to start medicine for seizure management at this point. I hope he will continue to improve with recovery of renal function and time off cefepime. Thank you for asking Neurology to see Mr. Valle. cc: MD MARCO Virk III
--- NOTE | 2019-03-20 19:55 | CONSULTATION ---
DATE OF CONSULTATION: 03/20/2019 REASON FOR CONSULTATION: Recent right knee arthroplasty. HISTORY OF PRESENT ILLNESS: Mr. Valle is a 68-year-old male who carries a past medical history of recent right knee arthroplasty in October with a second operation in late October. He did have an MRSA infection postoperatively. He had been on IV antibiotics. Dr. Daniels was consulted at that time. It looks like he last saw Dr. Cortez in December, and Dr. Cortez had referred him to [place] for a vascular consult. It sounds like they were not able to get to [facility], but they have been seeing Dr. Daniels here in town. Apparently, he had been doing some better until 03/18/2019. He was brought to the emergency room with his for altered mental status and slurred speech. Apparently, he had a significant decline in his appetite and just overall health. In the emergency room, he was found to have a creatinine of 4. He did have a CT of the head that was negative. Even today, he is still pretty confused and does not really follow any commands. He is very fidgety in bed. Orthopedics has been consulted for continued management of the right knee. PAST MEDICAL HISTORY: 1. Recent right knee arthroplasty, status post infection for which he has been on IV antibiotics since October. 2. Coronary artery disease, status post CABG. 3. Squamous cell carcinoma, status post chemotherapy and radiation. 4. Folate and iron deficiency. PAST SURGICAL HISTORY: 1. Right knee arthroplasty and I and D. 2. CABG 10 years ago. ALLERGIES: 1. Septra. 2. Statins. SOCIAL HISTORY: He lives with his . He is a smoker. No alcohol or illicit drug use. He has been with [facility] and on IV antibiotics since October. REVIEW OF SYSTEMS: A 10 point review of systems was conducted, but limited due to his altered mental status. FAMILY HISTORY: Noncontributory. HOME MEDICATIONS: Refer to chart. PHYSICAL EXAMINATION: Current Vital Signs: Temperature is 97.4 degrees, pulse is 62, blood pressure 145/53. He is 100% on room air. General: Mr. Valle is a 68-year-old male who looks malnourished. He is not appropriate currently. He is not answering any questions. He is unable to follow commands. He is very fidgety in bed. HEENT: Head is atraumatic, normocephalic. Pupils are equal, round, reactive to light. Cardiovascular: Regular rate and rhythm. Respiratory: Breathing is even and unlabored. Gastrointestinal: Appears nondistended. Extremities: He does have a dressing over that right knee. There does appear to be some purulent drainage on the dressing. I was unable to take the dressing down and assess the wound due to the patient's agitation. He does seem to be in some pain. Neurological: It is hard to assess. He is altered and is not following commands for me. He does appear to be moving all extremities. LABORATORY DATA: White count 9.12, hemoglobin and hematocrit 9.9 and 29.6, and platelet count 249,000. BUN and creatinine are 56 and 3.1; that is down from 90 and 4.5. His lactate is 1.1. He has had both blood cultures and wound cultures which have shown no growth so far. ASSESSMENT: Status post right knee arthroplasty with subsequent Methicillin resistant Staphylococcus aureus infection. PLAN: 1. It does look like Mr. Valle's biggest problem right now is his acute kidney injury. Dr. Lara has been consulted and is following him. It does look like the plan is to begin dialysis as soon as possible. 2. Infectious Disease has been consulted to continue his intravenous antibiotic management. 3. We are going to continue to do local wound care to the knee. 4. We will see if we can get him more appropriate over the next few days. 5. Nutrition is going to be very essential for Mr. Valle. That is really going to be the only way we can get this wound healed is if we can get him medically stable and get him some better nutrition. Thank you for the consult. Dictated by PETRA Escalona for Sravan Cortez MD cc: PETRA Escalona MD
[2019-03-20] MEDS ORDERED: ZOFRAN IV PRN (22:04)
[2019-03-20] MEDS ORDERED: MORPHINE IV PRN (22:04)
[2019-03-20] MEDS ORDERED: OFIRMEV 1000 MG/ISOTONIC SOLN 1,000 MG/100 ML BOTTLE IV ONE (22:04)
[2019-03-20 23:28] LABS: CALCIUM 7.9 mg/dL (8.8-10.2); CREATININE 2.8 mg/dL (0.7-1.2); POTASSIUM 2.8 mmol/L (3.5-5.1)
[2019-03-21] MEDS ORDERED: TYLENOL PR PRN (04:00)
[2019-03-21] MEDS: SODIUM BICARBONATE 8.4% 100 MEQ in D5W 1,000 ML IV SCH ×3 (05:45→17:47)
[2019-03-21] MEDS ORDERED: NS 2,000 ML MISC PRN (06:05)
[2019-03-21] MEDS ORDERED: HEPARIN IV PRN (06:05)
[2019-03-21] MEDS ORDERED: TIGHT: 0.2 ML/HR FOR DIALYSIS MISC PRN (06:05)
[2019-03-21] MEDS: PRILOSEC PO SCH (07:05)
[2019-03-21 07:32] LABS: HEMATOCRIT 29.7 % (42.0-52.0); MCH 30.8 PG (27-31); MCHC 33.7 g/dL (33-37); MCV 91.4 FL (81-99); RBC 3.25 XMIL (4.7-6.1); RDW 15.1 % (11.5-14.5); WBC 8.59 X1000 (4.8-10.8)
[2019-03-21 08:08] LABS: INR 1.13; PROTIME 15.4 Seconds (11.0-16.0)
[2019-03-21 08:09] LABS: ALBUMIN 3.4 g/dL (3.5-5.0); CALCIUM 8.2 mg/dL (8.8-10.2); CREATININE 3.4 mg/dL (0.7-1.2); PHOSPHORUS 3.3 mg/dL (2.7-4.5); POTASSIUM 2.7 mmol/L (3.5-5.1)
[2019-03-21 08:09] LABS: PTT 36.1 Seconds (22.3-41.8)
--- NOTE | 2019-03-21 10:09 | Diag Imaging Result Doc PS360 ---
CT RENAL BX, PERCUTAN - 03/21/2019 INDICATION: BENITO TECHNIQUE: The risks and benefits of the procedure were discussed with the patient. All questions were answered. Written and verbal informed consent was obtained. Overlying skin was prepped and draped in sterile fashion. Anesthesia was achieved with injection of 10 cc of 1% lidocaine. COMPARISON: Renal ultrasound 03/29/2019 FINDINGS: The right kidney was chosen for biopsy. The 6/11 cm 17/18 gauge We Clusterno biopsy needle set was used. Eight biopsy specimens were obtained. These were evaluated by pathology and determined to be adequate. IMPRESSION: Successful and uncomplicated CT-guided right renal biopsy. Electronically signed by Nacho Calvin 03/21/2019 10:06 AM
--- NOTE | 2019-03-21 13:18 | NEPHROLOGY PROGRESS NOTE ---
DATE: 03/21/2019 SUBJECTIVE: He is much more alert today. He nods to questions and is able follow commands. OBJECTIVE: Vital Signs: Blood pressure 124/54, heart rate 56, respirations 16, afebrile. General: No acute distress. Skin: Warm and dry. HEENT: Conjunctivae are pink. Neck: Neck veins are not distended. Heart: Regular. No gallops. Lungs: Equal. No crackles of wheezes. Abdomen: Soft. Nontender. Bowel sounds present. Extremities: No edema, clubbing or cyanosis. IMPRESSION: Acute kidney injury. His encephalopathy is significantly better after 1 dialysis treatment. We will proceed with renal biopsy today and then dialysis today as well. A 4 K bath, no UF. cc: Rome Lara MD
--- NOTE | 2019-03-21 13:20 | PROGRESS NOTE ---
DATE: 03/21/2019 SUBJECTIVE: I evaluated this patient during dialysis. This patient is completely awake, alert, and he is oriented. He knows his name, date of , location and year, he is following commands, I do not see any focal deficits. Case discussed with the previously at his room. OBJECTIVE: Vital Signs: Temperature 97.7 degrees, pulse 56, respiratory rate 16, blood pressure 124/54, oxygen saturation 98 on room air. HEENT: Head normocephalic. No trauma. PERRLA. Neck: Supple. No JVD. No masses. Central trachea. Chest: Clear to auscultation. No wheezing. Some crepitus at the bases. Abdomen: Soft, nontender, nondistended. No hepatosplenomegaly. Extremities: No edema, no clubbing, no cyanosis. He does have a right knee dressing with a little bit of sanguineous discharge, small, I believe is chronic. Neurological: This patient is alert. He is oriented x3. He is moving all 4 extremities. LABORATORY DATA: WBC 8.5, hemoglobin 10, hematocrit 29.7, platelets 240,000. Sodium 140, potassium 2.7, chloride 98, bicarbonate 28, BUN 40, creatinine 3.4, glucose 119, calcium 8.2, phosphorus 3.3, albumin 3.4. ASSESSMENT AND PLAN: 1. Encephalopathy. This is much better, probably resolved, likely secondary to uremia and/or cefepime use. We will continue to monitor. 2. Acute kidney injury. This patient now is on dialysis, we will to continue follow with the recommendations of Nephrology Department. 3. History of right knee arthroplasty complicated with infection, ID following. 4. History of coronary artery disease, asymptomatic at this moment. 5. History of a history of squamous cell cancer of the tongue, status post chemoradiation, aware. 6. History of iron as well as folate deficiency, aware. 7. Deep vein thrombosis prophylaxis with sequential compression devices. 8. Gastrointestinal prophylaxis with proton pump inhibitors. cc: Cheo Kat MD
[2019-03-21 13:55] LABS: HEPATITIS PROFILE ACUTE SEE COMMENTS
[2019-03-21] MEDS: ICAR-C PO SCH (14:25)
[2019-03-21] MEDS: COLACE PO SCH ×2 (14:45→21:24)
[2019-03-21 18:04] LABS: URINE SOURCE CATH
[2019-03-21 18:08] LABS: UR EPITHELIAL CELLS <10 /HPF (<10); URINE BACTERIA NEGATIVE /HPF; URINE RBC TNTC /HPF (<10); URINE WBC <10 /HPF (<10)
[2019-03-21 18:10] LABS: BILIRUBIN URINE NEGATIVE (NEGATIVE); BLOOD URINE LARGE (NEGATIVE); COLOR BROWN; GLUCOSE URINE NEGATIVE (NEGATIVE); KETONE URINE NEGATIVE (NEGATIVE); LEUKOCYTES URINE TRACE (NEGATIVE); NITRITE URINE NEGATIVE (NEGATIVE); PH URINE 6.5; PROTEIN URINE 300 mg/dL (NEGATIVE); TURBIDITY URINE TURBID (CLEAR); UROBILINOGEN URINE NORMAL (NORMAL)
[2019-03-21 18:55] LABS: UR CREAT RANDOM 63.8 mg/dL (14-26); UR PROT RANDOM 378.4 mg/dL
[2019-03-22] MEDS: SODIUM BICARBONATE 8.4% 100 MEQ in D5W 1,000 ML IV SCH ×2 (03:05→19:02)
[2019-03-22] MEDS ORDERED: TIGHT: 0.2 ML/HR FOR DIALYSIS MISC PRN (05:43)
[2019-03-22] MEDS ORDERED: NS 2,000 ML MISC PRN (05:43)
[2019-03-22] MEDS ORDERED: HEPARIN IV PRN (05:43)
[2019-03-22] MEDS: PRILOSEC PO SCH (06:37)
[2019-03-22 08:24] LABS: HEMATOCRIT 28.1 % (42.0-52.0); HEMOGLOBIN 9.3 g/dL (14.0-18.0); MCH 30.2 PG (27-31); MCHC 33.1 g/dL (33-37); MCV 91.2 FL (81-99); RBC 3.08 XMIL (4.7-6.1); WBC 10.45 X1000 (4.8-10.8)
[2019-03-22 08:31] LABS: CALCIUM 8.1 mg/dL (8.8-10.2); PHOSPHORUS 2.9 mg/dL (2.7-4.5); POTASSIUM 3.7 mmol/L (3.5-5.1)
[2019-03-22] MEDS: ICAR-C PO SCH (09:23)
[2019-03-22] MEDS: COLACE PO SCH ×2 (10:42→20:17)
--- NOTE | 2019-03-22 12:27 | NEPHROLOGY PROGRESS NOTE ---
DATE: 03/22/2019 SUBJECTIVE: He is awake, alert, no new complaints today. He has had some bleeding in his urine after his biopsy. OBJECTIVE: Vital Signs: Blood pressure 118/54, heart rate 57. Afebrile. General: No acute distress. Skin: Warm and dry. HEENT: Conjunctivae are pink. Neck: Neck veins are not distended. Heart: Regular. No gallops. Lungs: Equal. No crackles or wheezes. Abdomen: Soft, nontender. Bowel sounds are present. Extremities: No edema, clubbing, or cyanosis. IMPRESSION: Acute kidney injury. PLAN: Biopsy results are pending. He will have dialysis again today, and then we will observe him over the weekend. I reviewed the diagnostic possibilities, and we will again await results. Hemoglobin is stable. We will continue to monitor as long as he has hematuria. cc: Rome Lara MD
--- NOTE | 2019-03-22 13:44 | EEG REPORT ---
DATE: 03/19/2019 COMMENT: This is a digitally recorded EEG on a 68-year-old patient with altered mental state, clinically apparent global encephalopathy, improved. FINDINGS: During waking, medium-amplitude 7-7.5 Hz posterior rhythm is present symmetrically and reacts at times to eye opening. Background contains polymorphic and rhythmic theta frequencies over the frontal and central regions symmetrically. There is some slowing into the delta range frontally while awake. Drowsing and stage 2 sleep were recorded briefly with symmetric features. Photic stimulation did not significantly alter the record. No definite epileptiform discharge was identified. INTERPRETATION: Abnormal EEG because of mild generalized slowing. CORRELATION: This is indicative of a diffuse encephalopathy and is nonspecific. The absence of epileptiform discharges does not exclude a clinical diagnosis of seizure, but there is nothing on this record to suggest a tendency to seizure. cc: MD Bubba Virk III, MD
--- NOTE | 2019-03-22 15:21 | PROGRESS NOTE ---
DATE: 03/22/2019 SUBJECTIVE: The patient evaluated during dialysis, he is awake, alert. He is oriented. He is following commands. No focal deficits, no family members at the bedside. I have requested a cardiac evaluation to readjust his medications since this patient now is on dialysis. OBJECTIVE: Vital Signs: Temperature 98 degrees, pulse 64, respiratory rate 16, blood pressure 118/62, oxygen saturation 100% on room air. HEENT: Head normocephalic, no trauma, PERRLA. Neck: Supple. No JVD. No masses. Central trachea. Chest: Clear to auscultation. No wheezing. Some crepitus at the bases. Abdomen: Soft, nontender, nondistended. No hepatosplenomegaly. Extremities: No edema, no clubbing, no cyanosis. He does have a right knee dressing, is a bit painful to palpation. Neurological: The patient is alert. He is oriented x3. He moves all 4 extremities. LABORATORY: WBC 10.4, hemoglobin 9.3, hematocrit 28.1, platelets 224,000. Sodium 135, potassium 3.7, chloride 26, chloride 99, bicarbonate 26, BUN 21, creatinine 3, glucose 125, calcium 8.1, phosphorus 2.9, albumin 3. ASSESSMENT AND PLAN: 1. Encephalopathy, I believe this is resolved already. I believe this is his baseline. That was likely secondary to uremia and/or cefepime use. We will continue to monitor. 2. Acute kidney injury with no recovery. He is on dialysis. Continue with the same management, he is on dialysis at this moment. 3. History of right knee arthroplasty complicated with infection, Infectious Disease Department following. 4. History of coronary artery disease, asymptomatic at this moment. 5. History of CHF, we will readjust his medications. I have requested an evaluation by Cardiology Department. 6. History of a squamous cell cancer of the tongue, status post chemoradiation. Aware. 7. History of iron as well as folate deficiency, aware. 8. Deep vein thrombosis prophylaxis with sequential compression devices. 9. Gastrointestinal prophylaxis with PPI. 10. Physical deconditioning, as per the patient he was able to walk before coming to the hospital, a few months ago he was using a cane, probably because of the knee surgery/infection, we will wait for evaluation and recommendation of physical therapy. cc: Cheo Kat MD
--- NOTE | 2019-03-22 16:20 | ECHO REPORT ---
ORDER DATE: 03/22/2019 INTERPRETING PHYSICIAN: Iggy Allison MD PROCEDURE: 2D echocardiogram to assess left ventricular systolic function. ECHOCARDIOGRAPHIC MEASUREMENTS: 1. Interventricular septum 0.8 cm. 2. Left ventricular posterior wall 0.8 cm. 3. Diastolic diameter 5.7 cm. 4. Left atrium 3.9 cm. 5. Aorta 3.4 cm. SUMMARY OF THE 2-DIMENSIONAL IMAGIN. Normal left ventricular cavity size. 2. Severely reduced systolic function. 3. Estimated ejection fraction of 25%. 4. There is global hypokinesis. 5. Aortic valve leaflets are trileaflet. 6. Mitral valve was normal. 7. Tricuspid valve was normal. 8. Pulmonic valve was normal. 9. By Doppler studies, there is no aortic stenosis or regurgitation. 10. There is no pericardial effusion or obvious intracardiac mass or thrombus seen. 11. There is mild mitral regurgitation. cc: MD Bruce Tsai MD
--- NOTE | 2019-03-22 18:58 | INFECTIOUS DISEASE PROGRESS NO ---
DATE: 03/22/2019 PRESENT ILLNESS: The patient has been treated since the first of the year for right knee infection. His knee is looking much better, and the 2 open wounds are clean. He developed an altered mental status and worsening renal function, which now is much better. MEDICATIONS: The patient is not on any antibiotics at this time. PHYSICAL EXAMINATION: Vital Signs: Temperature is 98 degrees, pulse 64, respirations 16, blood pressure 118/62. General: This is a chronically ill-appearing and malnourished-appearing, elderly male. He is in no acute distress. Head, Eyes, Ears, Nose, and Throat: He can hear my spoken words and see near objects. He does not have any white patches in his mouth. Neck: He can turn his head, and it does not cause him to have any neck pain. Lungs: Clear to auscultation. Cardiovascular: Heart rate is regular. Abdomen: Soft and nontender. Extremities: The right knee does not have an effusion around it. It is not tender. There are 2 open wounds that have beefy-looking tissue. There is no surrounding erythema and there is no purulence. Neurologic: The patient was walking with the help of the physical therapist. He is able to carry on a coherent conversation. DIAGNOSTIC STUDIES: There is no new radiographic study for today. The patient's CBC shows a white count 10,450, hemoglobin 9.3, platelet count 224,000. Creatinine is 3, GFR is 21. Urinalysis showed a red cell, but no bacteria or white blood cells. Culture from the right knee and blood cultures are negative. ASSESSMENT AND PLAN: As regarding the patient's knee, at this time, I do not think it has an active infection. My plan is to continue to hold all antibiotics. I am signing off the case now, but I am available to see the patient on a p.r.n. basis. Dr. Daniels is following the patient [facility]. Specifically, he is treating the 2 open wounds on his knee. PATIENT'S COMORBIDITIES: 1. He is elderly. 2. He has malnutrition. 3. Coronary artery disease. 4. Congestive heart failure. 5. Long-term antibiotic use. 6. History of infected right total knee arthroplasty, which does not appear to be the case now. cc: Pepe Daniels MD
--- NOTE | 2019-03-22 19:01 | CARDIOLOGY CONSULTATION ---
DATE: 03/22/2019 CHIEF COMPLAINT ON PRESENTATION: Apparently altered mental status, slurred speech. HISTORY OF PRESENT ILLNESS: Mr. Valle is a 68-year-old white male with a history of coronary artery disease with recent diagnosis of heart failure during a previous hospitalization, I believe, in November. He apparently had some issues with some confusion and was brought in to the hospital, and now the concern is that possibly he has some renal insufficiency related to his long-term outpatient antibiotics that he has been on for an MRSA infection associated with a total knee replacement. He has had MRSA as well as a Pseudomonas infections, and he has been followed by Dr. Daniels. Presently, the patient has no pain complaints. He has no shortness of breath, and he denies any orthopnea. He denies any recent lower extremity edema. He has been initiated on dialysis. Presently, he is not on any antihypertensives or heart failure medications. Previously, he was on Entresto, spironolactone, and carvedilol. PAST MEDICAL HISTORY: Significant for: 1. Coronary artery disease. Last cardiac catheterization that I have on file with the patient was from 2011. At that time, he was referred for coronary artery bypass grafting. This was subsequently performed in 2011. He had a limited LAD vein graft to the OM1, a vein graft to the OM2, and a vein graft to the PDA. I do not have any mention of any ischemia evaluation since then. He has been under the care of Dr. Mccartney over in [place], and there was a tentative plan for consideration of ischemia testing after medications were initiated. His last echocardiogram was in November 2018, demonstrating an EF of 25% to 30%. 2. Systolic heart failure. 3. Chronic kidney disease, recently advanced to requiring dialysis. Unsure at this time whether this is a permanent or a temporary situation. 4. Carotid artery disease. 5. Hypertension. 6. Hyperlipidemia. 7. Peptic ulcer disease. ALLERGIES: He apparently has an allergy to statin therapy which resulted in transaminitis. SOCIAL HISTORY: He smokes around 1/2 pack per day. No alcohol or illicit drug use. He is . FAMILY HISTORY: He is adopted. REVIEW OF SYSTEMS: Ten-system review of systems is negative except for those things mentioned in HPI. PHYSICAL EXAMINATION: Vital signs: Recently, the patient has been afebrile. His heart rate is 64. His heart rates have been predominantly in the 50s to 60s. His blood pressure is 118/62. General: He is in no acute distress. Thin white male. HEENT: Oropharynx is moist. Normocephalic, atraumatic. Eye examination shows pink conjunctivae, white sclerae. Neck: Shows no obvious thyromegaly or thyroid tenderness. Cardiovascular: He sounds to be in a regular rate and rhythm. I do not hear any obvious murmurs. He has no S3. He has no lower extremity edema. Chest: Exam sounds clear bilaterally. He has no increased work of breathing. Abdomen: Soft, nontender, nondistended. He has no obvious organomegaly. Skin: Warm and dry throughout, without any rashes. Neurological: He is moving all extremities well. He has no lateralizing deficits. Psychiatric: He is alert, oriented, and pleasant. He has normal mood and affect. PERTINENT DATA: INCOMPLETE REPORT -- DICTATION ENDS HERE cc: Bruce Mojica MD
--- NOTE | 2019-03-22 19:23 | CARDIOLOGY CONSULTATION ---
DATE: 03/22/2019 CONTINUATION: His laboratory data demonstrates white count of 10.4, hematocrit 28, platelet count 224,000, sodium 135, potassium 3.7, BUN 21, creatinine is 3. His peak creatinine this hospitalization was 4.5. His albumin is 3.0. LDL was 100. He is on Repatha for this as he has an intolerance to statins secondary to transaminitis. Patient had an EKG performed on admission demonstrating sinus rhythm, rate of 56, evidence for bifascicular block, left anterior fascicular and right bundle branch block. ASSESSMENT: Mr. Valle is a 68-year-old gentleman who has presented with complications from long-term antibiotic therapy resulting in renal insufficiency. He has a history of heart failure with as of yet incomplete evaluation. PLAN: He is not on any medications right now for his heart failure, but hemodynamics seem that perhaps they would not tolerate. I will check a limited echocardiogram to reevaluate his ejection fraction. Currently, I do not have any acute recommendations. Certainly, we would like to re- initiate medications when possible, but I would not use Entresto given his renal issues. Hopefully, we can re-initiate Carvedilol in the future. Certainly could try Isordil or hydralazine if his blood pressure improves and his renal function does not. Again, we will check a limited echocardiogram. cc: Bruce Mojica MD
[2019-03-22] MEDS ORDERED: MELATONIN PO ONE (22:05)
--- NOTE | 2019-03-23 00:22 | PROGRESS NOTE ---
DATE: 03/22/2019 SUBJECTIVE: Mr. Valle is awake, alert, attentive, and appropriate now. There is no focal neurologic finding on brief testing. His EEG shows mild generalized slowing, probably nearly recovered to baseline. There is no evidence of seizure. IMPRESSION: Global encephalopathy, multifactorial, likely contributions from uremia and cefepime. He seems to be recovered. I do not have any new suggestion from Neurology standpoint. Thanks for asking me to see Mr. Valle. cc: Cayla Andujar III, MD
[2019-03-23] MEDS: FLAGYL PO SCH ×3 (04:58→20:54)
[2019-03-23] MEDS: PRILOSEC PO SCH (06:26)
[2019-03-23 07:12] LABS: HEMATOCRIT 29.9 % (42.0-52.0); HEMOGLOBIN 9.8 g/dL (14.0-18.0); MCH 30.6 PG (27-31); MCHC 32.8 g/dL (33-37); MCV 93.4 FL (81-99); MPV 10.1 FL (7.4-10.4); RBC 3.2 XMIL (4.7-6.1); RDW 14.9 % (11.5-14.5); WBC 10.14 X1000 (4.8-10.8)
[2019-03-23] MEDS: SODIUM BICARBONATE 8.4% 100 MEQ in D5W 1,000 ML IV SCH ×3 (07:45→20:55)
[2019-03-23 08:08] LABS: ALBUMIN 3.1 g/dL (3.5-5.0); CALCIUM 8.3 mg/dL (8.8-10.2); CREATININE 2.8 mg/dL (0.7-1.2); PHOSPHORUS 2.5 mg/dL (2.7-4.5); POTASSIUM 3.6 mmol/L (3.5-5.1)
[2019-03-23] MEDS: ICAR-C PO SCH (09:49)
[2019-03-23] MEDS: COLACE PO SCH ×2 (09:50→20:54)
--- NOTE | 2019-03-23 13:13 | PROGRESS NOTE ---
DATE: 03/23/2019 SUBJECTIVE: The patient is resting comfortably in bed. He is completely alert and oriented x3, family members at the bedside. No acute events overnight. OBJECTIVE: Vital Signs: Temperature 98.9 degrees, pulse 73, respiratory rate 16, blood pressure 126/59, oxygen saturation 98 on room air. HEENT: Head normocephalic. No trauma. PERRLA. Neck: Supple. No JVD. No masses. Central trachea. Chest: Clear to auscultation. No wheezing. Some crepitus at the bases. Abdomen: Soft, nontender, nondistended. No hepatosplenomegaly. Extremities: No edema no clubbing, no cyanosis. Neurologic: The patient is alert, he is oriented x3. He moves all 4 extremities, but he does have generalized weakness. LABORATORY: WBC 10.1, hemoglobin 9.8, hematocrit 29.9, platelets 187,000. Sodium 136, potassium 3.6, chloride 95, bicarbonate 29, BUN 13, creatinine 2.8, glucose 130. Calcium 8.3. Phosphorus 2.5. Albumin 3.1. ASSESSMENT AND PLAN: 1. Encephalopathy, resolved. 2. Acute kidney injury with no recovery, continue with dialysis as scheduled. Nephrology Department on board. 3. History of right knee arthroplasty complicated with infection, Infectious Disease Department has been following this patient, not on antibiotics at this moment, it looks like it is not infected at this moment. 4. History of coronary artery disease, asymptomatic. 5. History of congestive heart failure. We just did an echocardiogram yesterday that showed a severely reduced systolic function, with an ejection fraction of 25% with global hypokinesis. Cardiology department on board. We will follow recommendations. 6. History of squamous cell cancer of the tongue, status post chemoradiation, aware. 7. History of iron as well as folate deficiency, aware. 8. Deep vein thrombosis prophylaxis with sequential compression devices. 9. Gastrointestinal prophylaxis with proton pump inhibitors. 10. Physical deconditioning. Continue with physical therapy for now. cc: Cheo Kat MD
--- NOTE | 2019-03-23 17:27 | NEPHROLOGY PROGRESS NOTE ---
DATE: 03/23/2019 SUBJECTIVE: He is resting in bed. No complaints. Appetite is low, and he is not eating his food. OBJECTIVE: Vital Signs: Blood pressure 107/53, heart rate 63, respirations 15, afebrile. General: No acute distress. Skin: Warm and dry. Conjunctivae are pink. Neck: Neck veins are not appreciated. Heart: Regular. Lungs: Equal. Abdomen: Soft. Extremities: Have minimal edema. IMPRESSION/PLAN: Acute kidney injury. He had dialysis yesterday. Urine output is not quantified. Observe over the weekend. I will add Boost. cc: Rome Lara MD
[2019-03-24] MEDS: FLAGYL PO SCH (06:26)
[2019-03-24] MEDS: PRILOSEC PO SCH (06:27)
[2019-03-24 07:06] LABS: HEMATOCRIT 27.8 % (42.0-52.0); HEMOGLOBIN 9.1 g/dL (14.0-18.0); MCH 30.6 PG (27-31); MCHC 32.7 g/dL (33-37); MCV 93.6 FL (81-99); MPV 10.1 FL (7.4-10.4); RBC 2.97 XMIL (4.7-6.1); RDW 14.9 % (11.5-14.5); WBC 13.69 X1000 (4.8-10.8)
[2019-03-24 07:35] LABS: ALBUMIN 2.8 g/dL (3.5-5.0); CALCIUM 7.8 mg/dL (8.8-10.2); CREATININE 3.8 mg/dL (0.7-1.2); PHOSPHORUS 2.6 mg/dL (2.7-4.5); POTASSIUM 3.3 mmol/L (3.5-5.1)
[2019-03-24] MEDS: ICAR-C PO SCH (09:14)
[2019-03-24] MEDS: COLACE PO SCH ×2 (09:15→21:34)
[2019-03-24] MEDS: SODIUM BICARBONATE 8.4% 100 MEQ in D5W 1,000 ML IV SCH (09:16)
--- NOTE | 2019-03-24 10:33 | PROGRESS NOTE ---
DATE: 03/24/2019 SUBJECTIVE: The patient is lying comfortably in bed. He had a low-grade temperature today, and the WBC increased to 13, so will go ahead and get a new set of blood culture and urine culture. I personally checked his knee wound. It looks fine. He has some granulation tissue and it is covered. No secretion coming out or bleeding. For now, we will monitor this patient closely. I will order also an x-ray. OBJECTIVE: Vital Signs: Temperature 99 degrees, pulse 75, respiratory rate 16, blood pressure 128/53, oxygen saturation 100% on room air. HEENT: Head normocephalic. No trauma. PERRLA. Neck: Supple. No JVD. No masses. Central trachea. Chest: Clear to auscultation. No wheezing. Some crepitus at the bases. Abdomen: Soft, nontender, nondistended. No hepatosplenomegaly. Extremities: No edema, no clubbing, no cyanosis. He does have a wound on his knee from previous infected right knee arthroplasty, but at this moment it looks fine, and he is not getting any antibiotics. Infectious Disease Department already evaluated this patient. Neurological: The patient is alert and oriented x3. No focal deficits. LABORATORY DATA: WBC 13.6, hemoglobin 9.1, hematocrit 27.8, platelets 200,000. Sodium 132, potassium 3.3, chloride 89, bicarbonate 33, BUN 24, creatinine 3.8, glucose 131, calcium 7.8. Phosphorus 2.6. Albumin 2.8. ASSESSMENT AND PLAN: 1. Encephalopathy, resolved. 2. Acute kidney injury with no recovery so far. Continue with dialysis as scheduled. Nephrology Department on board. 3. Fever and leukocytosis. I have requested blood culture and urine culture, as well as an x- ray. He is not having any significant cough or signs of urinary tract infection. Right knee looks clean, and the wound is healing fine with some granulation tissue. I do not see any pus coming out from that area, he does have a positive result of C Diff, and has been started on Vancomycin PO. 4. C Diff colitis and diarrhea, as above. 5. History of right knee arthroplasty complicated with infection. Infectious Disease Department already evaluated this patient. He is not on antibiotics at this moment. It does not look infected at this moment. 6. History of coronary artery disease, asymptomatic. 7. History of congestive heart failure. We just did an echocardiogram a couple of days ago that showed severely reduced systolic function with an ejection fraction of 25% with global hypokinesis. Cardiology Department on board. We will follow recommendations. 8. History of squamous cell cancer of the tongue, status post chemoradiation. Aware. 9. History of iron as well as folate deficiency. Aware. 10. Deep vein thrombosis prophylaxis with sequential compression devices. 11. Gastrointestinal prophylaxis with proton pump inhibitors. 12. Physical deconditioning. Continue physical therapy for now. cc: Cheo Kat MD MTDD
--- NOTE | 2019-03-24 13:13 | Diag Imaging Result Doc PS360 ---
EXAM: CHEST-PORTABLE INDICATION: SOB TECHNIQUE: One view COMPARISON: 12/08/2018 FINDINGS: There is a stable left PICC line. There has been interval placement of Vas-Cath. The tip projects over the region of the atriocaval junction in the expected position. There is vague interstitial infiltrates bilaterally, most prominent in the left midlung zone. This is most compatible with mild pulmonary edema. A component of infection is possible on the left. There is no discrete pleural fluid collection or pneumothorax. There are stable CABG changes. Cardiac silhouette is essentially unremarkable, otherwise. IMPRESSION: Vague interstitial infiltrates bilaterally as described. Electronically signed by Sravan Gross 03/24/2019 1:11 PM
[2019-03-24] MEDS: VANCOCIN PO SCH ×2 (15:49→21:34)
[2019-03-24] MEDS: TYLENOL PO PRN (19:06)
[2019-03-25] MEDS: SODIUM BICARBONATE 8.4% 100 MEQ in D5W 1,000 ML IV SCH ×2 (01:20→16:05)
[2019-03-25] MEDS: TYLENOL PO PRN ×2 (02:30→17:53)
[2019-03-25] MEDS: VANCOCIN PO SCH ×4 (02:30→22:59)
[2019-03-25] MEDS ORDERED: TIGHT: 0.2 ML/HR FOR DIALYSIS MISC PRN (06:21)
[2019-03-25] MEDS ORDERED: NS 2,000 ML MISC PRN (06:21)
[2019-03-25] MEDS ORDERED: HEPARIN IV PRN (06:21)
[2019-03-25 07:29] LABS: BASO# 0.03 X1000 (0.0-0.2); BASO% 0.2 % (0.0-0.8); EOS# 0.34 X1000 (0.0-0.7); EOS% 2.3 % (0.0-10.0); HEMATOCRIT 26.8 % (42.0-52.0); HEMOGLOBIN 8.8 g/dL (14.0-18.0); IMM GRAN# 0.04 X1000 (0.0-0.04); IMM GRAN% 0.3 % (0.0-0.5); LYMPH# 0.99 X1000 (1.2-3.4); LYMPH% 6.6 % (20.5-51.1); MCH 30.1 PG (27-31); MCHC 32.8 g/dL (33-37); MCV 91.8 FL (81-99); MONO# 1.42 X1000 (0.11-0.59); MONO% 9.5 % (1.7-9.3); MPV 9.7 FL (7.4-10.4); NEUT% 81.1 % (42.2-75.2); PLT 216 X1000 (130-400); RBC 2.92 XMIL (4.7-6.1); RDW 14.9 % (11.5-14.5); WBC 14.92 X1000 (4.8-10.8)
[2019-03-25 07:56] LABS: ALB/GLOB RATIO 0.9; ALBUMIN 2.6 g/dL (3.5-5.0); CALCIUM 7.4 mg/dL (8.8-10.2); CREATININE 4.5 mg/dL (0.7-1.2); MAGNESIUM 1.1 mg/dL (1.5-2.7); PHOSPHORUS 2.9 mg/dL (2.7-4.5); TOTAL BILIRUBIN 0.34 mg/dL (0.20-1.00); TOTAL PROTEIN 5.6 g/dL (6.3-8.3)
[2019-03-25] MEDS: COLACE PO SCH ×2 (12:18→23:00)
[2019-03-25] MEDS: PRILOSEC PO SCH (12:19)
[2019-03-25] MEDS: ICAR-C PO SCH (12:19)
--- NOTE | 2019-03-25 15:01 | PROGRESS NOTE ---
DATE: 03/25/2019 SUBJECTIVE: Patient is resting in bed, started having fevers yesterday. Last night think he reached 100.2-101.3. OBJECTIVE: Vital Signs: Temperature 98.8 degrees, heart rate 95, respiratory rate 20, blood pressure 133/54, O2 saturation 99% on room air. General Examination: This is a chronically ill- appearing, 69-year-old male, lying in bed, in no acute distress. Cardiovascular: S1, S2 heard. No murmurs, gallops, or rubs. Regular rate and rhythm. Respiratory: Clear bilaterally to auscultation. Minimal rhonchi in both pulmonary bases. The patient is not using any accessory muscles or having work of breathing. Abdomen: Soft. Nontender to palpation. Nondistended. Bowel sounds present. No organomegaly. Extremities: No clubbing, cyanosis, or edema. The patient had a wound on the knee from previous infected right knee arthroplasty. Neurological: Patient is alert and oriented x3. Moves 4 extremities. LABORATORY DATA: White cell count 14.92 hemoglobin 8.8, hematocrit 26.8, platelets 216,000. BMP remarkable for potassium 3.0, creatinine 4.5. Magnesium 1.1. ASSESSMENT AND PLAN: 1. Acute kidney injury with no recovery. Patient is receiving so far dialysis. Dr. Lara from Nephrology is following this patient. 2. Encephalopathy resolved. 3. Fever and leukocytosis at this point, I do not know why this patient started having fever. What we know that this patient is that white cell count is getting higher. The patient was seen to have fever. Right knee looks fine so I do not think that is the source of infection. We have a positive result for Clostridium difficile. That is why this patient is on vancomycin p.o. At this time considering all those factors I am going to reconsult Dr. Daniels tomorrow to see if we need to start antibiotics on this patient. We will continue also to check vitals every 6 hours. 4. Clostridium difficile colitis. We will continue with vancomycin oral. 5. History of right knee arthroplasty complicated with infection. Patient has been on antibiotics for almost 6 months. At this point. We will continue to monitor this patient. He is not on any antibiotics yet. 6. History of congestive heart failure. Ejection fraction showed 25% ejection fraction with global hypokinesis. Cardiology Department is following this patient. 7. History of squamous cell carcinoma of the tongue status post chemo/radiation. 8. History of iron and folate deficiency. We will continue to monitor. 9. Gastrointestinal prophylaxis with Protonix. 10. Physical deconditioning. Patient is going to rehab whenever the patient is medically stable. 11. Nutritional status. Patient will be added Liquacel and will add dietitian consult. cc: Toñito Kennedy MD MTDD
[2019-03-25] MEDS ORDERED: VANCOMYCIN IV PER PHARMACY MISC SCH (15:45)
--- NOTE | 2019-03-25 15:53 | NEPHROLOGY PROGRESS NOTE ---
DATE: 03/25/2019 DATE AND TIME: Date seen 03/25/2019, time is 0655. SUBJECTIVE: Mr. Valle is resting quietly in bed. Head of the bed is slightly elevated. His is at his bedside. He states that he is feeling just a little bit better. He states that he is not eating well, but attempting to drink Boost. OBJECTIVE: Vital Signs: His most recent vital signs: Temperature 99.7, blood pressure 136/50, heart rate 84, respirations. 14 he is on room air. Last recorded saturation 97%. He has had 480 in. He has had 0 recorded out, though he does state that he is urinating throughout the day. LABORATORY: His most recent lab: Sodium 133, potassium 3, chloride is 86, CO2 37, BUN 31, creatinine 4.5, glucose 133. Anion gap is 10, calcium 7.4, phosphorus 2.9, magnesium 1.1, albumin of 2.6. White count 14.92, hemoglobin 8.8, hematocrit 26.8, with a platelet count of 216,000. PHYSICAL EXAMINATION: General: This is a 69-year-old white male resting quietly in bed. He appears in no acute distress. Skin: Warm and dry. HEENT: Normocephalic, atraumatic. Conjunctiva is pale pink. He has SALEEM. Mucous membranes are dry. Neck: Supple, trachea midline. No evidence of JVD. Cardiovascular: Regular rate and rhythm. S4 is present. Lungs: Clear to auscultation bilaterally. Equal excursion on room air. Abdomen: Soft, nontender. Positive bowel sounds. Genitourinary: Not inspected. Patient states that he has been voiding. Extremities: No edema. No clubbing or cyanosis. ASSESSMENT AND PLAN: 1. Acute kidney injury. Patient has been requiring hemodialysis on Monday, Monday, Monday. No urine output has been quantified in the last 24 with minimal urine out in the last 48 hours. We have requested that he keep a strict I and O. We will plan for dialysis today. We will place him on a 2K bath. He is to dialyze for 3.5 hours. We will attempt 1 L of ultrafiltration. We have spoken to the patient in regards with possible discharge in regards with dialysis and needing exchange of a catheter to a tunneled dialysis catheter. The patient states understanding. 2. Electrolytes and acid-base balance, with correction on dialysis. 3. Anemia. Previous hemoglobin of 9.1. This remains low, but stable. 4. Malnutrition. Patient states he has no appetite though he has attempted to the eat. 5. Encephalopathy. This has resolved. 6. Fever and leukocytosis. Continues low-grade fever during the night. Followed by the primary care with renal dosed antibiotics. I would like to thank you for allowing us to follow with this patient. Dictated by PETRA Johns for Rome Lara MD Face to face encounter, data reviewed, discussed with Juliette Wood on 03/25/19. I agree with the above assessment and plan of care. cc: PETRA Johns MD [facility]
[2019-03-25] MEDS: ZOSYN 2.25 GM in NS 50 ML IV SCH (15:59)
[2019-03-25] MEDS ORDERED: VANCOMYCIN 1 GM/NS 1 GM/250 ML IVPB IV ONE (16:00)
[2019-03-25] MEDS ORDERED: MAGNESIUM SULFATE 2 GM/S.W.I. 2 GM/50 ML IVPB IV ONE (16:29)
[2019-03-25] MEDS ORDERED: ISORDIL PO SCH (17:00)
[2019-03-25] MEDS: APRESOLINE PO SCH (17:52)
--- NOTE | 2019-03-25 18:03 | Diag Imaging Result Doc PS360 ---
CHEST-PORTABLE - 03/25/2019 INDICATION: fever COMPARISON: 03/24/2019 FINDINGS: Stable bilateral central lines. Stable sternotomy wires. There is significant improvement in the extensive bilateral interstitial infiltrates. Heart size remains top normal. No pneumothorax or large pleural effusion. IMPRESSION: Significant improvement in the bilateral infiltrates. Electronically signed by Nacho Calvin 03/25/2019 6:01 PM
[2019-03-26] MEDS: ZOSYN 2.25 GM in NS 50 ML IV SCH ×2 (03:33→15:57)
[2019-03-26] MEDS: VANCOCIN PO SCH ×5 (03:33→22:23)
[2019-03-26] MEDS ORDERED: VANCOMYCIN 1 GM/NS 1 GM/250 ML IVPB IV SCH (06:00)
[2019-03-26] MEDS: PRILOSEC PO SCH (06:33)
[2019-03-26 07:58] LABS: ALBUMIN 2.6 g/dL (3.5-5.0); CREATININE 3.5 mg/dL (0.7-1.2); PHOSPHORUS 2.6 mg/dL (2.7-4.5); POTASSIUM 3.6 mmol/L (3.5-5.1)
[2019-03-26] MEDS: ISORDIL PO SCH ×3 (10:09→18:51)
[2019-03-26] MEDS: ICAR-C PO SCH (10:09)
[2019-03-26] MEDS: COLACE PO SCH ×4 (10:09→22:25)
[2019-03-26] MEDS: APRESOLINE PO SCH ×4 (10:09→18:26)
[2019-03-26 11:14] LABS: BASO# 0.04 X1000 (0.0-0.2); BASO% 0.3 % (0.0-0.8); EOS# 0.42 X1000 (0.0-0.7); EOS% 3.6 % (0.0-10.0); HEMATOCRIT 28.1 % (42.0-52.0); IMM GRAN# 0.04 X1000 (0.0-0.04); IMM GRAN% 0.3 % (0.0-0.5); LYMPH# 0.99 X1000 (1.2-3.4); LYMPH% 8.5 % (20.5-51.1); MCH 29.7 PG (27-31); MCV 92.7 FL (81-99); MONO# 1.62 X1000 (0.11-0.59); MONO% 13.9 % (1.7-9.3); MPV 10.2 FL (7.4-10.4); NEUT# 8.56 X1000 (1.4-6.5); NEUT% 73.4 % (42.2-75.2); PLT 234 X1000 (130-400); RBC 3.03 XMIL (4.7-6.1); RDW 14.8 % (11.5-14.5); WBC 11.67 X1000 (4.8-10.8)
--- NOTE | 2019-03-26 14:01 | NEPHROLOGY PROGRESS NOTE ---
DATE: 03/26/2019 TIME SEEN: 06 SUBJECTIVE: Mr. Valle is resting quietly in bed states that he still has a poor appetite. He is attempting to drink Boost and Nepro. States he has continued diarrhea. confirms that he is having at least 6 to 8 in 24 hours. OBJECTIVE: Vital Signs: Temperature 98.9 degrees, blood pressure 130/42, heart rate 71, respirations 21, he is on room air, last recorded saturation 95%. He has had 50 mL in, he has only had 1 L out per dialysis. LABS: Sodium is 136, potassium 3.6, chloride 95, CO2 29, BUN 21, creatinine 3.5, glucose 105, anion gap 12, calcium 8, phosphorus 2.6, albumin 2.6, previous hemoglobin 8.8 on the . PHYSICAL EXAM: This is a 69-year-old white male. He is resting quietly in bed. He appears chronically ill though no acute distress.Skin: Warm and dry. HEENT: Normocephalic, atraumatic. Conjunctiva is pale pink. He has SALEEM. Mucous membranes are dry. Neck: Supple. Trachea midline. No evidence of JVD. Cardiovascular: He is regular rate and rhythm. He is without murmur, positive gallop with S4. Lungs: Clear to auscultation bilateral, equal excursion on room air. Abdomen: Soft, nontender, positive bowel sounds. Genitourinary: Not inspected. Minimal void with dialysis assist. Extremities: Have no edema, no clubbing or cyanosis. Integumentary: The patient has a Vas-Cath to the right IJ. Neurologic: Alert and oriented x3. ASSESSMENT AND PLAN: 1. Acute kidney injury. Patient requires hemodialysis. We have been attempting dialysis on Monday, Monday, Monday in attempt to assist him with his fluid volume overload. BUN and creatinine continue remain stable. No recovery thus far. rg 2. Electrolytes and acid-base balance. These are acceptable with correction on dialysis. We will plan for dialysis in the a.m. 3. Anemia. This is low but stable. 4. Malnutrition. We have discussed starting patient back on normal saline at 100 mL an hour to assist with his fluid volume loss. We will plan for IDPN to be infused on dialysis to assist with his nutritional status. 5. Encephalopathy. Again this has resolved. 6. Fever with leukocytosis. Remains on renal dosed antibiotics followed by the primary care . Like to thank you for allowing us to follow with this patient. Dictated by PETRA Johns for Rome Lara MD Face to face encounter, data reviewed, discussed with Juliette Wood on 03/26/19. I agree with the above assessment and plan of care. cc: PETRA Johns MD [facility]
--- NOTE | 2019-03-26 14:02 | CARDIOLOGY PROGRESS NOTE ---
DATE: 03/26/2019 SUBJECTIVE: Mr. Valle feels somewhat fatigued. He otherwise does not have any complaints. OBJECTIVE: Vitals: He is afebrile, heart rate 72, blood pressure 130/40. General: No acute distress. Cardiovascular: He sounds to be in a regular rate and rhythm. He has no obvious murmurs. He has no S3. No lower extremity edema. Chest is clear bilaterally. No increased work of breathing. PERTINENT DATA: Sodium 136, potassium 3.6, BUN 21, creatinine 3.5, phosphorus level is 2.6. ASSESSMENT: Mr. Valle is a 69-year-old gentleman with a history of heart failure and now with acute kidney injury on dialysis. PLAN: We have escalated his medications with the addition of Isordil and hydralazine yesterday. I have escalated Isordil to 10 mg t.i.d. His blood pressure seems to be tolerating this. We will continue to try to make medication titrations while in the hospital. cc: Bruce Mojica MD
--- NOTE | 2019-03-26 15:03 | PROGRESS NOTE ---
DATE: 03/26/2019 SUBJECTIVE: The patient is lying in bed. No complaints at this time. He reports poor appetite, although he is drinking Boost on Nephro. He continues to have diarrhea. OBJECTIVE: Vital Signs: Temperature 99.6, heart rate 75, respiratory rate 18, blood pressure 118/96, O2 saturation 99% on room air. General Examination: This is a chronically ill-appearing, 69-year-old male lying in bed, in no acute distress. HEENT: Head is normocephalic, atraumatic. Mucous membranes dry. Neck: No JVD noted. No carotid bruit. Cardiovascular: S1, S2 heard. No murmurs, gallops, or rubs. Regular rate and rhythm. Respiratory: Minimal rhonchi in both pulmonary bases. Patient is not using any accessory muscles or having work of breathing. Abdomen: Soft. Nontender to palpation. Nondistended. Bowel sounds present. No organomegaly. Extremities: No clubbing, cyanosis, or edema. Peripheral pulses present in both legs. Patient has a wound on the knee from a previous infected right knee arthroplasty. It does not look infected. Neurological: Patient is alert and oriented x3. Moves 4 extremities. LABORATORY DATA: White cell count is 11.62, hemoglobin 9.0, hematocrit 28.1, platelets 234,000. Creatinine 3.5, potassium 3.6. ASSESSMENT AND PLAN: 1. Acute kidney injury with no recovery. The patient continues to receive dialysis so far. He is receiving dialysis Monday, Monday, and Monday. Dr. Lara is following this patient. We will follow recommendations. 2. Clostridium difficile colitis. We will continue with vancomycin oral. He is receiving 125 mg p.o. q.6 hours. We will continue with the same management. 3. Fever with leukocytosis. The patient has been started on vancomycin and Zosyn renally dosed for persistent fever and leukocytosis as well. His leukocytosis is getting better. Fever has resolved. So at this point, we will continue with the same management. Blood culture has been ordered. We will see what it shows. 4. History of right knee arthroplasty complicated with infection. I do not think that knee is infected. We will continue to monitor. 5. History of congestive heart failure. Ejection fraction on previous echo shows 25% with global hypokinesis. At this point Cardiology is following this patient. 6. History of iron and folate deficiency. We will continue to replenish. 7. Gastrointestinal prophylaxis with Protonix. 8. Physical deconditioning. Patient is going to rehab whenever this patient is medically stable. 9. Nutritional status. Patient is on LiquaCel and dietitian has been consulted to enhance his nutritional status. cc: Toñito Kennedy MD
[2019-03-26] MEDS: NS 1,000 ML IV SCH ×3 (15:38→17:40)
--- NOTE | 2019-03-26 15:50 | INFECTIOUS DISEASE PROGRESS NO ---
DATE: 03/26/2019 PRESENT ILLNESS: I agree with Dr. Dumont that the patient could have a pneumonia and he does have Clostridium difficile diarrhea, and one or both of these are responsible for the patient having an increasing white count and fever. After starting treatment, the patient's white count is coming down after Dr. Dumont started the patient on vancomycin and Zosyn IV and vancomycin p.o. MEDICATIONS: As mentioned above, Dr. Dumont started the patient on IV vancomycin and Zosyn and p.o. vancomycin, and I agree with his choices. PHYSICAL EXAMINATION: Vital Signs: Temperature earlier was 102, now it is 99.5, pulse 72, respirations 16, blood pressure 130/40. General: This is a chronically ill-appearing, elderly male. He is in no acute distress. Head, eyes, ears, nose, and throat: Patient can hear my spoken words and see near objects. He does not have any white patches in his mouth. Neck: The patient has a right-sided dialysis catheter present in the internal jugular vein. The site is not swollen or tender. Lungs: Clear to auscultation. Cardiovascular: Heart rate is regular. Abdomen: Soft and nontender. Extremities: Patient has a PICC in his left arm and that site also is not swollen or tender. The patient's right knee has 2 open wounds. They do not appear infected. Lungs: Clear to auscultation. Cardiovascular: Regular heart rate. Abdomen: Soft and nontender. Neurologic: The patient is awake. He can move his extremities. There is no tremor. LAB AND X-RAY: CBC shows a white count that went from 14,920 to 11,670, hemoglobin is 9, and platelet is 234,000. Creatinine is 3.5. GFR is 17. Blood and urine cultures are negative. Stool for Clostridium difficile toxin is positive. Chest x-ray shows improvement in both lungs infiltrates. ASSESSMENT AND PLAN: The patient has pneumonia and Clostridium difficile diarrhea. I agree with the current antibiotics ordered by Dr. Dumont, namely IV Zosyn and IV vancomycin and also p.o. vancomycin. ASSESSMENT AND PLAN: The patient has pneumonia and Clostridium difficile diarrhea. I agree with treating with vancomycin and Zosyn IV and vancomycin p.o. COMORBIDITIES: The patient is elderly. He has end-stage renal disease and is on dialysis. The patient has coronary artery disease, congestive heart failure, and right total knee arthroplasty. cc: Pepe Daniels MD
[2019-03-26] MEDS: ENTRESTO 49 MG-51 MG TABLET PO SCH (22:23)
[2019-03-26] MEDS: COREG PO SCH (22:24)
[2019-03-27] MEDS: VANCOCIN PO SCH ×4 (03:01→22:02)
[2019-03-27] MEDS: ZOSYN 2.25 GM in NS 50 ML IV SCH ×3 (03:01→22:02)
[2019-03-27] MEDS: PRILOSEC PO SCH (06:20)
[2019-03-27] MEDS: NS 1,000 ML IV SCH ×2 (06:45→14:42)
[2019-03-27] MEDS ORDERED: HEPARIN IV PRN (06:54)
[2019-03-27] MEDS ORDERED: TIGHT: 0.2 ML/HR FOR DIALYSIS MISC PRN (06:54)
[2019-03-27] MEDS ORDERED: NS 2,000 ML MISC PRN (06:54)
[2019-03-27 07:15] LABS: BASO# 0.04 X1000 (0.0-0.2); BASO% 0.4 % (0.0-0.8); EOS# 0.55 X1000 (0.0-0.7); EOS% 5.8 % (0.0-10.0); HEMATOCRIT 26.1 % (42.0-52.0); HEMOGLOBIN 8.5 g/dL (14.0-18.0); IMM GRAN# 0.05 X1000 (0.0-0.04); IMM GRAN% 0.5 % (0.0-0.5); LYMPH# 1.04 X1000 (1.2-3.4); MCH 29.8 PG (27-31); MCHC 32.6 g/dL (33-37); MCV 91.6 FL (81-99); MONO# 1.35 X1000 (0.11-0.59); MONO% 14.3 % (1.7-9.3); MPV 9.5 FL (7.4-10.4); NEUT# 6.39 X1000 (1.4-6.5); PLT 238 X1000 (130-400); RBC 2.85 XMIL (4.7-6.1); RDW 14.8 % (11.5-14.5); WBC 9.42 X1000 (4.8-10.8)
[2019-03-27 07:26] LABS: ALBUMIN 2.6 g/dL (3.5-5.0); CALCIUM 7.9 mg/dL (8.8-10.2); CREATININE 4.8 mg/dL (0.7-1.2); PHOSPHORUS 3.1 mg/dL (2.7-4.5); POTASSIUM 3.1 mmol/L (3.5-5.1)
--- NOTE | 2019-03-27 08:15 | NEPHROLOGY PROGRESS NOTE ---
DATE: 03/27/2019 TIME SEEN: 0705. SUBJECTIVE: Mr. Valle is resting quietly in bed. States that his diarrhea has slowed down just slightly. No complaints of abdominal discomfort. LABORATORY DATA: Sodium is 138, potassium 3.1, chloride 98, CO2 of 27, BUN 34, creatinine 4.8, glucose 102, anion gap is 13, calcium 7.9. Phosphorus 3.1. Albumin is 2.6. Previous hemoglobin was 8.54, white count 9.42, hematocrit 26.1, with a platelet count of 238,000. PHYSICAL EXAMINATION: Most Recent Vital Signs: Temperature 97.9 degrees, blood pressure 117/46, heart rate 58, respirations 18. He is on room air. Last recorded saturation 97%. He has had 1730 in. He has had 0 recorded out, though he states that he has been voiding with diarrhea stool. General: This is a 69-year-old white male, resting quietly in bed. He is in no acute distress, though he appears chronically ill. Skin: Warm and dry. HEENT: Normocephalic, atraumatic. Conjunctiva is pale. He has SALEEM. Mucous membranes are dry. Neck: Supple. Trachea midline. No JVD. Cardiovascular: Regular rate and rhythm. He is without murmur or gallop. Lungs: Clear to auscultation bilaterally. Equal excursion on room air. Abdomen: Soft, nontender. Positive bowel sounds. Genitourinary: Not inspected. The patient has been voiding, though not recordable. Extremities: No edema. No clubbing or cyanosis. Neurological: Alert and oriented x3. ASSESSMENT AND PLAN: 1. Acute kidney injury without recovery. The patient's BUN and creatinine are elevated again today. We will plan for dialysis. He is to be placed on a 3-potassium bath. He is to dialyze for 3.5 hours. We will attempt to pull 1 liter of ultrafiltration as tolerated. 2. Electrolytes and acid-base balance. These remain with correction on dialysis. 3. Anemia. This is low, but stable. 4. Malnutrition. We will start intradialytic parenteral nutrition while on dialysis today. 5. Fever with leukocytosis. Followed by primary care. The patient remains on renal-dosed antibiotics. I would to thank you for allowing us to follow with this patient. Dictated by PETRA Johnsh, MD Face to face encounter, data reviewed, discussed with Juliette Wood on 03/27/19. I agree with the above assessment and plan of care. cc: PETRA Johns MD [facility]
[2019-03-27] MEDS: D50W 250 ML, AMINOSYN 15% 500 ML, LIPOSYN 20% 250 ML MISC SCH ×3 (09:10)
[2019-03-27] MEDS ORDERED: KLOR-CON PO ONE (11:32)
[2019-03-27] MEDS: COLACE PO SCH ×3 (12:24→22:02)
[2019-03-27] MEDS: COREG PO SCH ×3 (12:25→22:04)
[2019-03-27] MEDS: ISORDIL PO SCH ×3 (12:25→17:35)
[2019-03-27] MEDS: ALDACTONE PO SCH (12:25)
[2019-03-27] MEDS: APRESOLINE PO SCH ×3 (12:25→17:35)
[2019-03-27] MEDS: ICAR-C PO SCH (12:25)
[2019-03-27] MEDS: CULTURELLE PO SCH (12:25)
[2019-03-27] MEDS: ENTRESTO 49 MG-51 MG TABLET PO SCH ×3 (12:25→22:10)
[2019-03-27] MEDS: ZYVOX 600 MG/D5W 600 MG/300 ML IVPB IV SCH (14:52)
--- NOTE | 2019-03-27 15:12 | PROGRESS NOTE ---
DATE: 03/27/2019 SUBJECTIVE: Patient reports feeling fine. Still poor appetite. Patient is drinking Boost and Nepro. OBJECTIVE: Vital Signs: Temperature 98.7 degrees, heart rate 70, respiratory rate 20, blood pressure 137/53, O2 saturation 99% on room air. General Examination: This is a chronically ill- appearing, 69-year-old, male, lying in bed in no acute distress. HEENT: Head is normocephalic, atraumatic. Mucous membranes dry. Neck: No JVD noted. No carotid bruits. No lymphadenopathy. No thyromegaly. Cardiovascular exam: S1, S2 heard. No murmurs, gallops, or rubs. Regular rate and rhythm. Respiratory exam: Minimal rhonchi noted in both pulmonary bases. Patient not using any accessory muscles or having work of breathing. Abdomen: Soft, nontender to palpation. Nondistended. Bowel sounds present. No organomegaly. Extremities: No clubbing, cyanosis, or edema. Peripheral pulses present in both legs. There is a wound on the knee from a previous infected right knee arthropathy that does not look infected. Neurological exam: Patient is alert and oriented x3. Moves 4 extremities. LABORATORY DATA: White cell count is 9.42, hemoglobin 8.5, hematocrit 26.1, and platelets 238 with creatinine 4.8, with potassium 3.1. ASSESSMENT AND PLAN: 1. Acute kidney injury with no recovery. The patient continues to be on dialysis. Apparently they have held dialysis during the weekend, but apparently Dr. Lara thinks that this patient continued to be on dialysis. In any case, we will follow recommendations from Dr. Lara. 2. Clostridium difficile colitis. We will continue with vancomycin oral every 6 hours. We will continue with same management. 3. Fever and leukocytosis. I do not know exactly what is the source of infection. The patient is on vancomycin and Zosyn renally dosed. Patient begun having fever and elevated white cell count so I have started this patient on vancomycin and Zosyn. I have reconsulted Dr. Daniels, who was following this patient initially, who agreed with the treatment. We will continue with the same management. 4. History of right knee arthropathy complicated with infection. I do not think knee is infected at this time. We will continue to monitor. 5. History of congestive heart failure. Last echocardiogram showed ejection fraction of 25% with global hypokinesis. We will continue to monitor. Not complaining of any chest pain. 6. Gastrointestinal prophylaxis with Protonix. 7. History of iron and folic deficiency, anemia. We will continue to replenish both. 8. Physical deconditioning. Physical Therapy working with this patient. 9. Nutritional status. Patient is on LiquaCel. Dietitian has been consulted. 10. Disposition: I think at this point the patient will continue with antibiotics. We do not know exactly source of infection, but we will continue with those antibiotics renally dosed. Regarding dialysis, will try to send this patient home whenever the patient is cleared by Nephrology. cc: Toñito Kennedy MD MTDD
--- NOTE | 2019-03-27 16:06 | INFECTIOUS DISEASE PROGRESS NO ---
DATE: 03/27/2019 PRESENT ILLNESS: Mr. Valle is being treated for bilateral pneumonia and a C difficile diarrhea. He has also had acute kidney injury and is receiving hemodialysis. MEDICATIONS: He has been receiving Zosyn 2.25 g IV every 12 hours, vancomycin 1 g IV after each dialysis, and vancomycin 125 mg by mouth every 6 hours. PHYSICAL EXAMINATION: Vital Signs: Temperature is 98.7 degrees, pulse rate 70, respiratory rate 20, blood pressure 137/53, O2 saturation is 99% on room air. General: This is an elderly cachectic-appearing gentleman. He is lying in the bed, currently in no acute distress, on his left lateral side. HEENT: Atraumatic, normocephalic. Oral mucous membranes are pink and moist. Conjunctivae are pale. Neck: Supple. Trachea is midline. Cardiovascular: Heart rate and rhythm are regular. Normal sinus rhythm on the monitor. Respiratory: Lung sounds are clear to auscultation bilaterally. Diminished in the bases. Abdomen is soft, flat, and nontender. Bowel sounds are active. Integumentary: Skin is warm and dry, and there is a dressing in place to the right knee, which is not removed at this time. He also has a PICC line to the left upper extremity. That site is without edema, erythema, or drainage. Neurologic: He is drowsy and lethargic, but arousable. Able to move around in the bed independently without any tremors. DIAGNOSTIC STUDIES: Today his white count is 9.42 hemoglobin 8.5, platelet count 238,000. Creatinine is 4.8, GFR 12. His blood and urine cultures have shown no growth. His C difficile toxin was positive. Right knee culture has also shown no growth. Pathology from his kidney biopsy shows acute tubular injury. No imaging reports today. ASSESSMENT AND PLAN: Mr. Valle has been admitted due to acute kidney injury and is currently being treated for pneumonia and a Clostridium difficile diarrhea. The pneumonia appears to be improving and the patient's reports that he is having less diarrhea and stools are more formed. Because of his continuing renal insufficiency, we will stop the vancomycin and start him on Zyvox 600 mg IV every 12 hours. We will also increase his Zosyn to 2.25 g IV every 6 hours to continue the treatment for pneumonia. He is also receiving oral vancomycin for the C difficile diarrhea, which we will continue. These plans have been discussed with and recommended by Dr. Daniels. COMORBIDITIES: For Mr. Valle include that he is elderly and malnourished, with long-term antibiotic coverage for multiple right knee infections status post right knee arthroplasty, coronary artery disease, and congestive heart failure. Dictated by PETRA Demarco for Pepe Daniels MD cc: Pepe Daniels MD MTDD
[2019-03-27] MEDS ORDERED: VANCOMYCIN 1 GM/NS 1 GM/250 ML IVPB IV ONE (17:00)
[2019-03-28] MEDS: ZYVOX 600 MG/D5W 600 MG/300 ML IVPB IV SCH ×2 (01:19→14:39)
[2019-03-28] MEDS: NS 1,000 ML IV SCH ×2 (02:40→13:14)
[2019-03-28] MEDS: VANCOCIN PO SCH ×4 (02:40→21:23)
[2019-03-28] MEDS: ZOSYN 2.25 GM in NS 50 ML IV SCH ×4 (04:18→21:30)
[2019-03-28] MEDS: PRILOSEC PO SCH (05:59)
[2019-03-28 07:05] LABS: HEMATOCRIT 25.6 % (42.0-52.0); HEMOGLOBIN 8.4 g/dL (14.0-18.0); MCH 29.9 PG (27-31); MCHC 32.8 g/dL (33-37); MCV 91.1 FL (81-99); MPV 9.6 FL (7.4-10.4); NEUT% 55.4 % (42.2-75.2); PLT 228 X1000 (130-400); RBC 2.81 XMIL (4.7-6.1); RDW 14.4 % (11.5-14.5); WBC 7.03 X1000 (4.8-10.8)
[2019-03-28 07:06] LABS: BASO# 0.03 X1000 (0.0-0.2); BASO% 0.4 % (0.0-0.8); EOS# 0.71 X1000 (0.0-0.7); EOS% 10.1 % (0.0-10.0); LYMPH# 1.04 X1000 (1.2-3.4); LYMPH% 14.8 % (20.5-51.1); MONO# 1.36 X1000 (0.11-0.59); MONO% 19.3 % (1.7-9.3); NEUT# 3.89 X1000 (1.4-6.5)
[2019-03-28 07:23] LABS: ALBUMIN 2.6 g/dL (3.5-5.0); CREATININE 3.3 mg/dL (0.7-1.2); POTASSIUM 3.4 mmol/L (3.5-5.1)
[2019-03-28] MEDS: ENTRESTO 49 MG-51 MG TABLET PO SCH (09:16)
[2019-03-28] MEDS: ALDACTONE PO SCH (09:16)
[2019-03-28] MEDS: ISORDIL PO SCH ×3 (09:16→18:51)
[2019-03-28] MEDS: CULTURELLE PO SCH (09:16)
[2019-03-28] MEDS: APRESOLINE PO SCH ×3 (09:16→18:53)
[2019-03-28] MEDS: COREG PO SCH ×3 (09:17→21:25)
[2019-03-28] MEDS: COLACE PO SCH ×2 (09:17→21:25)
[2019-03-28] MEDS: ICAR-C PO SCH (09:17)
--- NOTE | 2019-03-28 13:24 | NEPHROLOGY PROGRESS NOTE ---
DATE: 03/28/2019 SUBJECTIVE: Mr. Valle is resting quietly in bed. States that his diarrhea has slowed down. He is feeling fair and would like to go home. LABORATORY DATA: Sodium is 140, potassium is 3.4, chloride 102, CO2 is 26, BUN 25, creatinine is 3.3, with a glucose of 106. He has an anion gap of 12. His calcium is 8. Phosphorus 2. Albumin 2.6. His white count is 7.03, hemoglobin 8.4, hematocrit 25.6, with a platelet count of 228,000. OBJECTIVE: Vital Signs: Temperature 98.2 degrees, blood pressure 125/38, heart rate 63, respirations 14. He is on room air. Last recorded saturation is 97%. He has had 1840 in, 600 mL out on dialysis. General: This is a 69-year-old white male. He is currently resting quietly in bed. He appears chronically ill, though no acute distress. Skin: Warm and dry. HEENT: Normocephalic, atraumatic. Conjunctivae pale pink. He has SALEEM. Mucous membranes are dry. Neck: Supple. Trachea midline. No evidence of JVD. Cardiovascular: Regular rate and rhythm without murmur or gallop. Lungs: Clear to auscultation bilaterally. Equal excursion on room air. Abdomen: Soft, nontender. Positive bowel sounds. Genitourinary: Not inspected. Minimal urine out with dialysis assist. Though the patient states that he has been voiding, this has not been recorded secondary to having diarrhea stools. Extremities: No edema. No clubbing or cyanosis. He does have a PICC line to the left upper arm. Neurologic: Alert and oriented x3. ASSESSMENT AND PLAN: 1. Acute kidney injury without recovery. The patient's BUN and creatinine continue to improve after dialysis, with elevations on the day of needing dialysis. He continues to have a Vas- Cath to the right internal jugular. The patient is wanting to go home. We have discussed removal of the Vas-Cath, with the placement of a dialysis tunneled catheter. He will require home antibiotics. He has a peripherally-inserted central catheter line to the left upper arm. We have discussed with the patient that we will attempt to formulate a plan for removal of Vas- Cath after his dialysis treatment tomorrow, with plan for Dr. Leblanc to follow up if the patient is discharged home. Otherwise, placement of tunnel catheter on Monday if labs still indicate. 2. Electrolytes and acid-base balance. These have been corrected on dialysis. 3. Anemia. This remains low, but stable. 4. Fever with leukocytosis. The patient has been on renal-dosed antibiotics per Dr. Daniels. We will plan to discuss continued patient discharge with followup on labs with Dr. Daniels before discharge. I would like to thank you for allowing us to follow with this patient. Spoke with Jeremiah who would like him to stay until tomorrow so we will dialyze then remove VasCath. rg Dictated by PETRA Johns for Rome Lara MD Face to face encounter, data reviewed, discussed with Juliette Wood on 03/28/19. I agree with the above assessment and plan of care. rg cc: PETRA Johns MD [facility]
--- NOTE | 2019-03-28 15:18 | CARDIOLOGY PROGRESS NOTE ---
DATE: 03/28/2019 SUBJECTIVE: Mr. Valle reports he is feeling okay. He is trying to get some rest, but he wakes easily. OBJECTIVE: Vital signs: Afebrile, heart rate 60, blood pressure 121/42. General: No acute distress. Cardiovascular: He sounds to be in a regular rate and rhythm. He has no obvious murmurs. He has no S3. No lower extremity edema. Chest: Clear bilaterally. No increased work of breathing. Abdomen: Soft, nontender. PERTINENT DATA: Sodium 140, potassium 3.4, BUN 25, creatinine 3.3. His albumin is 2.6. Hematocrit 25. ASSESSMENT: Mr. Valle is a 69-year-old gentleman with acute kidney injury secondary to antibiotic usage. He has systolic heart failure as well. PLAN: I will make a dose titration of his hydralazine up to 25 t.i.d. He is currently on Isordil 10 mg t.i.d. He continues on Coreg for the time being. He was initiated on Entresto and Aldactone per the primary team in the last couple of days. I will get in touch with them regarding these medications and whether they think they may interfere with the recovery from a kidney standpoint. cc: Bruce Mojica MD
--- NOTE | 2019-03-28 18:03 | INFECTIOUS DISEASE PROGRESS NO ---
DATE: 03/28/2019 PRESENT ILLNESS: Mr. Valle has bilateral pneumonia and a C difficile diarrhea. He has also had an acute kidney injury with hemodialysis. He is also being treated for C difficile diarrhea. MEDICATIONS: He is receiving Zyvox 600 mg IV every 12 hours and Zosyn 2.25 g IV every 6 hours. These are ordered as renally modified doses. He is also receiving oral vancomycin 125 mg by mouth every 6 hours. PHYSICAL EXAMINATION: Vital Signs: Temperature is 98.1 degrees, pulse rate 53, respiratory rate 16, blood pressure 121/42, O2 saturation 100% on room air. General: This is a chronically ill- appearing, cachectic, elderly gentleman. He is lying in bed, currently on his right lateral side, in no acute distress. HEENT: Atraumatic, normocephalic. Oral mucous membranes are pink and moist. Conjunctivae are pale. Neck: Supple. Trachea is midline. Cardiovascular: Heart rate and rhythm are regular and slow, sinus bradycardia on the monitor. Respiratory: Lung sounds are clear in the upper lobes, diminished in the bases. Abdomen: Soft, flat, nontender. Bowel sounds are active. Neurologic: He is drowsy and lethargic but arousable. Moving around in the bed independently. Integumentary: Skin is warm and dry with a dressing to the right knee not removed at this time. There is also a PICC line to his left upper extremity without edema erythema or drainage to the site. LABORATORY AND X-RAY: Today his white count is 7.03, hemoglobin 8.4, platelet count 228,000. Creatinine is 3.3, GFR 19. Blood, urine, and right knee cultures have shown no growth on this admission. He has been positive for C difficile in his stool. ASSESSMENT AND PLAN: Mr. Valle has had an acute kidney injury and has been receiving hemodialysis. He is anxious to go home. The plan is to remove the temporary dialysis line and possibly place a tunneled dialysis catheter tomorrow so he can go home. He is complaining of his PICC line bothering his left upper arm. For now, we will continue his IV antibiotics and recheck a chest x-ray in the morning. Depending on how it looks, we may possibly be able to discontinue his PICC line and start him on oral antibiotics to be discharged home. Hopefully his kidney function will continue to improve. He states the diarrhea has improved. We will continue oral vancomycin as ordered. These plans have been discussed with and recommended by Dr. Daniels. COMORBIDITIES: For Mr. Valle include that he is elderly, with protein calorie malnutrition, coronary artery disease, congestive heart failure, and long-term antibiotic coverage for multiple right knee arthroplasty infections. Dictated by PETRA Demarco for Pepe Daniels MD cc: Pepe Daniels MD [facility]
--- NOTE | 2019-03-28 20:35 | PROGRESS NOTE ---
DATE: 03/28/2019 INTERVAL HISTORY: No acute events. His vitals were unremarkable. He did have low potassium and continues to have a high BUN and creatinine with acute kidney injury. He has had one soft, loose bowel movement. He has not had any more fever spikes. SUBJECTIVE: He is feeling better. He wants to be discharged as soon as possible, and he tells me that the plan is potentially tomorrow. He denies any chest pain, shortness of breath, nausea, vomiting, abdominal pain, fevers or chills. VITAL SIGNS: Suggestive of temperature of 98 degrees, pulse 62, respiratory rate 18, blood pressure 116/38, saturating 99% room air. PHYSICAL EXAMINATION: General: Does not appear in acute distress. Oral Cavity: Moist. Lungs: Air entry bilaterally equal. No wheeze, rhonchi, crackles. Heart: S1, S2 normal. No murmur, rub, or gallop. Abdomen: Soft, nontender. Extremities: No lower extremity edema. He has a left-sided PICC line, right-sided Port-A-Cath. LABS: Suggestive of no leukocytosis, which has resolved. Normocytic anemia. Normal platelet count. Potassium of 3.4. Elevated BUN and creatinine, which has improved from yesterday. MICROBIOLOGY: No positive culture data except C difficile toxin which was positive. INPUT AND OUTPUT: The urine output has not been measured. ASSESSMENT AND PLAN: 1. Acute kidney injury, without any recovery, requiring intermittent hemodialysis. Currently, he is making urine and his BUN and creatinine are in acceptable range. Plan is to potentially remove his right-sided Vas-Cath tomorrow, and outpatient surgery followup if he would need tunneled dialysis catheter in future. Nephrology on board. His acute kidney injury could have been related to intravenous vancomycin use. 2. Clostridium difficile colitis. Continue oral vancomycin every 6 hours for a total of 14 days. 3. Fever and leukocytosis, resolved after intravenous vancomycin and Zosyn, which have been changed to intravenous linezolid. Infectious Disease is on board. I appreciate recommendation about changing antibiotics to oral at the time of discharge. He did have bilateral infiltrates on the chest x-ray which looked more like pulmonary edema than actual infiltrate. His right lower extremity has just serous discharge coming out at the moment, and the ulcer, which is about 3 x 3 cm, appears to be healing well. 4. History of congestive heart failure with reduced ejection fraction of 25%, with global hypokinesia. Continue his home medication of carvedilol. Continue isosorbide dinitrate, hydralazine. 5. Others. Continue docusate for constipation, iron carbonyl and ascorbic acid for chronic anemia. 6. Disposition. Patient is awaiting removal of left-sided peripherally inserted central catheter line and change of antibiotics to oral, and potentially discharge. Plan of care discussed with patient. All of his questions have been answered. cc: Sami Haney MD
[2019-03-29] MEDS: VANCOCIN PO SCH ×3 (03:22→15:46)
[2019-03-29] MEDS: ZOSYN 2.25 GM in NS 50 ML IV SCH ×2 (03:23→14:01)
[2019-03-29] MEDS: ZYVOX 600 MG/D5W 600 MG/300 ML IVPB IV SCH ×2 (03:26→14:49)
[2019-03-29] MEDS: NS 1,000 ML IV SCH ×2 (06:09→11:19)
[2019-03-29] MEDS: PRILOSEC PO SCH (06:30)
[2019-03-29 06:59] LABS: BASO# 0.02 X1000 (0.0-0.2); BASO% 0.3 % (0.0-0.8); EOS# 0.74 X1000 (0.0-0.7); EOS% 12.2 % (0.0-10.0); HEMATOCRIT 25.8 % (42.0-52.0); HEMOGLOBIN 8.4 g/dL (14.0-18.0); IMM GRAN# 0.02 X1000 (0.0-0.04); IMM GRAN% 0.3 % (0.0-0.5); LYMPH# 0.89 X1000 (1.2-3.4); LYMPH% 14.7 % (20.5-51.1); MCH 29.8 PG (27-31); MCHC 32.6 g/dL (33-37); MCV 91.5 FL (81-99); MONO# 1.06 X1000 (0.11-0.59); MONO% 17.5 % (1.7-9.3); MPV 9.7 FL (7.4-10.4); NEUT# 3.34 X1000 (1.4-6.5); PLT 241 X1000 (130-400); RBC 2.82 XMIL (4.7-6.1); RDW 14.6 % (11.5-14.5); WBC 6.07 X1000 (4.8-10.8)
[2019-03-29 07:16] VITALS: BP 128/54
[2019-03-29 07:26] LABS: ALBUMIN 2.8 g/dL (3.5-5.0); CALCIUM 7.8 mg/dL (8.8-10.2); CREATININE 4.1 mg/dL (0.7-1.2); PHOSPHORUS 2.5 mg/dL (2.7-4.5); POTASSIUM 3.7 mmol/L (3.5-5.1)
[2019-03-29] MEDS ORDERED: HEPARIN IV PRN (07:49)
[2019-03-29] MEDS ORDERED: NS 2,000 ML MISC PRN (07:49)
[2019-03-29] MEDS ORDERED: TIGHT: 0.2 ML/HR FOR DIALYSIS MISC PRN (07:49)
[2019-03-29] MEDS: COLACE PO SCH (08:12)
[2019-03-29] MEDS: D50W 250 ML, AMINOSYN 15% 500 ML, LIPOSYN 20% 250 ML MISC SCH ×3 (09:35)
[2019-03-29] MEDS: ISORDIL PO SCH ×2 (11:57→14:01)
[2019-03-29] MEDS: APRESOLINE PO SCH ×2 (11:57→14:01)
[2019-03-29] MEDS: COREG PO SCH (14:01)
[2019-03-29] MEDS: CULTURELLE PO SCH (14:01)
[2019-03-29] MEDS: ICAR-C PO SCH (14:01)
--- NOTE | 2019-03-29 14:02 | Diag Imaging Result Doc PS360 ---
EXAM: CHEST-2 VIEWS 03/29/2019 HISTORY: pneumonia TECHNIQUE: PA and lateral chest COMMENT: There is increased interstitial markings throughout both lungs in comparison with 03/25/2019. There is a catheter in the right internal jugular with its tip just above the right atrium and a PICC line on the left with its tip in the superior vena cava. IMPRESSION: Worsened pulmonary edema. Electronically signed by Dioni Haji 03/29/2019 1:59 PM
[2019-03-29] MEDS ORDERED: LASIX IV ONE (15:03)
[2019-03-29] MEDS ORDERED: LASIX PO ONE (15:23)
--- NOTE | 2019-03-29 15:30 | NEPHROLOGY PROGRESS NOTE ---
DATE: 03/29/2019 SUBJECTIVE: He is awake, alert, no new complaints. Hoping for discharge. OBJECTIVE: Vital Signs: Blood pressure 128/54, heart rate 58, respirations 16, afebrile. Generally: No acute distress. Skin: Warm and dry. Neck: Neck veins are not distended. Heart: Regular. Lungs: Equal. No crackles. Abdomen: Benign. Extremities: No edema, clubbing or cyanosis. IMPRESSION: 1. Acute kidney injury. Acute tubular necrosis. No recovery as of yet. We will remove his dialysis catheter after today. He will need to have labs done on Monday morning, and we will make a decision about whether further dialysis required at that time. 2. Electrolytes acid-base and volume status. All in target. cc: Rome Lara MD
--- NOTE | 2019-03-29 16:21 | INFECTIOUS DISEASE PROGRESS NO ---
DATE: 03/29/2019 ASSESSMENT AND PLAN: I have discussed the patient's case including his chest x- ray with Dr. Haney and Dr. Haji. We all agree that the patient appears to have on x-ray pulmonary venous congestion and not pneumonia. Dr. Haney and I feel that the patient does not require any further antimicrobial therapy. I am signing off and available to see the patient on a p.r.n. basis. cc: Pepe Daniels MD MTDHugh
--- NOTE | 2019-03-30 08:38 | DISCHARGE SUMMARY ---
ADMISSION DATE: 03/18/2019 DISCHARGE DATE: 03/29/2019 DISCHARGE DISPOSITION: Home. DISCHARGE CONDITION: Patient is alert and oriented x3. Denies any chest pain. No shortness of breath. His post dialysis x-ray does have worsening pulmonary edema, and he is being discharged on Lasix. He was extensively advised about discussing with outpatient Nephrology about adjusting Lasix dose according to his response. He is supposed to get his basic metabolic panel in 48 hours by home care which is presumably set up by Nephrology Team. DISCHARGE DIAGNOSES: 1. Acute renal failure without recovery without complete recovery requiring intermittent hemodialysis due to volume depletion and use of spironolactone and Crestor. 2. Clostridium difficile colitis. 3. Recurrent fever. 4. Acute systolic congestive heart failure exacerbation on chronic systolic congestive heart failure with ejection fraction of 25%. 5. Constipation. 6. Chronic anemia. 7. Acute encephalopathy likely in the setting of uremia, use of intravenous cefepime at the time of presentation. OTHER DIAGNOSES: 1. Chronic iron deficiency and folate deficiency anemia. 2. History of coronary artery disease status post CABG in 2008. 3. Systolic congestive heart failure with ejection fraction of 30%. 4. 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 5. History of squamous cell carcinoma of tongue, status post chemo radiation. DISCHARGE MEDICATIONS: 1. Aspirin 81 mg daily. 2. Multivitamin 1 tablet daily. 3. Omeprazole 20 mg daily. 4. Hydralazine 25 mg t.i.d. 5. Carvedilol 3.125 mg b.i.d. 6. Docusate 100 mg b.i.d. 7. Iron carbonyl ascorbic acid 1 tablet daily. 8. Isosorbide dinitrate 10 mg t.i.d. 9. Furosemide 40 mg daily. 10. Vancomycin 125 mg every 6 hours 32 capsules have been prescribed. VITALS: At the time of discharge, temperature 98 degrees, pulse 58, respiratory rate 16, blood pressure 128/54 and saturating 100% on room air. PHYSICAL EXAMINATION: General: Patient does not appear in acute distress. Oral cavity is moist. Lungs: Air entry bilaterally equal. No wheeze or rhonchi. Mild crackles at bases. Heart: S1, S2 normal. No murmur or gallop. Abdomen: Soft and nontender. Mild bilateral lower extremity edema which is minimal. His right-sided Vas-Cath was to be removed at the time of discharge, and he had a left-sided PICC line was which was also to be removed at the time of discharge. LABS AT TIME OF DISCHARGE: WBC 6000, hemoglobin 8.4, and platelet 241,000. His BUN is 39, creatinine 4.1. He is getting dialysis. SIGNIFICANT MICROBIOLOGY DURING HOSPITAL ADMISSION: Blood cultures did not show any growth. Clostridium difficile toxin was positive. Urine culture did not have any growth. SIGNIFICANT IMAGING DURING HOSPITAL ADMISSION: 1. Head CT on 03/18 had no hemorrhage and negative exam. 2. Brain MRI. The patient could not tolerate it since he was moving. 3. Renal ultrasound had increased renal echo structure in the setting of medical renal disease. Renal biopsy results of which were pending. 4. Chest x-ray on 03/29 had worsened pulmonary edema. The renal biopsy gross specimen had acute tubular injury with focal myoglobin cast, arterial sclerosis. CONSULTATIONS DURING HOSPITAL ADMISSION: 1. Infectious Disease, Dr. Daniels. 2. Neurologist, Dr. Andujar for acute encephalopathy. 3. Nephrology, Dr. Lara for acute kidney injury. 4. Cardiology, Dr. Bruce Mojica for acute on chronic congestive heart failure exacerbation. 5. Dr. Leblanc for Vas-Cath placement. HOSPITAL COURSE SUMMARY: Mr. Valle is a 69-year-old man with past medical history of right- sided knee replacement in October of 2018 with reoperation on 11/08 complicated by MRSA infection requiring intravenous vancomycin and later on Pseudomonas infection requiring intravenous cefepime outpatient through left-sided PICC line came in with chief complaints of altered mental status, slurred speech and decreased p.o. intake. In the emergency room, he was found to have acute kidney injury with BUN of 86 and creatinine of 4, which was new for him. Head CT was unremarkable, and so hospitalist team was consulted for further management. It was thought that his acute mental status change and acute encephalopathy were in the setting of uremia because of acute kidney injury. Brain MRI could not be done because of his movement during performing the image. It was also thought that intravenous cefepime that he was receiving for right knee arthroplasty infection could have contributed to it. A Vas-Cath was placed and patient was started on hemodialysis following which his mental status had improved. At the time of discharge, he was alert and oriented x3. His acute kidney injury was thought to be secondary to volume depletion because of poor p.o. intake as well as use of intestinal spironolactone and Lasix. At the time of discharge, he was making some urine. His Entresto and spironolactone's were held. However, post hemodialysis x-ray had pulmonary edema and so he was started on oral Lasix. He was advised to discuss with Nephrology about continuing it as tolerated. While inside the hospital, initially, he was continued on broad-spectrum intravenous antibiotics. The wound culture of right knee which had some open wound was not showing any growth, and it only had serosanguineous discharge. Considering patient had a fever spike of 101, he was continued on IV antibiotics. However, at the time of discharge, his chest x-ray had only suggested pulmonary edema without any consolidation and he was afebrile for 48 hours so his antibiotics were stopped at the time of discharge. He was continued on most of his home medications for his congestive heart failure and medication adjustments were made. He was also continued on medications for his chronic anemia. While at the time of admission, he developed diarrhea and C. Difficile toxin was positive. He was discharged on vancomycin. TIME SPENT: More than 30 minutes were spent discharging the patient. All of his questions were answered satisfactorily. cc: Sami Haney MD MTD[facility]ugh
== END 2019-03-29 16:20 | disposition home health service (06) | DRG 682 ==
LOC: ED 10:00 → 3N 14:42 → SUATTDRO 14:42 → 3N 15:12
PROVIDERS: ATTEND Internal Medicine
CPT/HCPCS: 50200; 70450; 70551; 71010; 71020; 71045; 71046; 76000; 76770; 80048; 80053; 80061; 80069; 80074; 80202; 81001; 82140; 82570; 82948; 83605; 83721; 83735; 83930; 83935; 84100; 84156; 84300; 84439; 84443; 85018; 85025; 85027; 85610; 85651; 85730; 86160; 87040; 87070; 87088; 87205; 87324; 88300; 93005; 93308; 95816; 97116; 97162; 97530; 99285; A9270; C1725; J0131; J0690; J1644; J2020; J2060; J2543; J3370; J3475; J7030; J7050; J7070; XXXXX